=== PATIENT | male | born 1960 | race Caucasian/White ===

== ENCOUNTER 2017-03-05 21:36 | Inpatient (IN) | payer OTHER ==
[~2017-03-05] VITALS: Ht 175.3 cm; Wt 78.5 kg
[2017-03-05] MEDS ORDERED: CEFEPIME IV 2,000 MG in DEXTROSE 5% 100ML 100 ML IV STA (21:56)
[2017-03-05] MEDS ORDERED: SODIUM CHLORIDE 0.9% 1000ML 2,000 ML IV STA (21:56)
[2017-03-05] MEDS ORDERED: ACETAMINOPHEN 500 MG TAB PO STA (21:56)
[2017-03-05] MEDS ORDERED: LEVAQUIN 750MG / 150ML D5W IV STA (21:59)
[2017-03-05] MEDS ORDERED: CEFEPIME IV 2,000 MG in SYRINGE 7.5 ML IV STA (22:14)
[2017-03-05 22:35] LABS: BASO % 0.1 %; BASO ABS # 0.01 K/uL (0-0.2); COMPLETE YES; HEMATOCRIT 30.8 % (42-52); IG% 0.8 %; LYMPH % 6.4 %; LYMPH ABS # 1.13 K/uL (1.2-3.4); MEAN CELL VOLUME 92.2 fL (80-100); MEAN CORPUSCULAR HEMOGLOBIN 31.4 pg (25-34); MEAN CORPUSCULAR HGB CONC 34.1 g/dl (32-36); MEAN PLATELET VOLUME 12.2 fL (7.4-10.4); MONO % 10.4 %; NEUT % 82.3 %; PLATELET COUNT 188 K/uL (130-400); RED BLOOD COUNT 3.34 M/uL (4.7-6.1); WHITE BLOOD COUNT 17.65 K/uL (4.8-10.8)
--- NOTE | 2017-03-05 22:35 | DIAGNOSTIC IMAGING REPORT ---
CHEST ONE VIEW PORTABLE HISTORY: 57 years-old Male Sepsis acute sepsis COMPARISON: None available TECHNIQUE: Portable AP view of the chest FINDINGS: Cardiomediastinal and hilar silhouettes are within normal limits. Atherosclerosis of the aorta. There is no pneumothorax, pleural effusion or focal airspace consolidation. Linear subsegmental opacities of the lung bases suggest atelectasis. The bones are grossly intact. IMPRESSION: No acute cardiopulmonary process. The above report was generated using voice recognition software. It may contain grammatical, syntax or spelling errors. Electronically signed by: Edwardo Diana M.D. 03/05/2017 10:34 PM Dictated Date/Time: 03/05/2017 10:33 PM
--- NOTE | 2017-03-05 22:42 | DIAGNOSTIC IMAGING REPORT ---
HEAD WITHOUT CONTRAST (CT) CLINICAL HISTORY: 57 years-old Male with AMS, dizzy. Acute altered mental status with dizziness TECHNIQUE: Multiple axial CT images of the head were obtained without contrast. A dose lowering technique was utilized adhering to the principles of ALARA. CT DOSE: 537.48 mGy.cm COMPARISON: None. FINDINGS: No acute intracranial hemorrhage, midline shift, mass, large territorial ischemia or abnormal extra-axial collection. Minimal atrophy. The calvarium is intact. The mastoid air cells, and middle ear cavities are clear. Mild mucoperiosteal thickening of the ethmoid sinuses. IMPRESSION: No acute intracranial abnormality. The above report was generated using voice recognition software. It may contain grammatical, syntax or spelling errors. Electronically signed by: Edwardo Diana M.D. 03/05/2017 10:41 PM Dictated Date/Time: 03/05/2017 10:39 PM
[2017-03-05 22:46] LABS: INR 1.1 (0.9-1.1); PARTIAL THROMBOPLASTIN RATIO 1.4; PROTHROMBIN TIME (PATIENT) 11.5 SECONDS (9.0-12.0)
[2017-03-05 22:55] LABS: ALT/SGPT 30 U/L (12-78); BLOOD UREA NITROGEN 46 mg/dl (7-18); BUN/CREATININE RATIO 24.4 (10-20); CALCIUM 8.5 mg/dl (8.5-10.1); CARBON DIOXIDE 20 mmol/L (21-32); CHLORIDE 100 mmol/L (98-107); CREATININE 1.88 mg/dl (0.60-1.40); GLUCOSE 102 mg/dl (70-99); SODIUM 131 mmol/L (136-145)
[2017-03-05 23:00] LABS: ALB/GLOB RATIO 0.6 (0.9-2); ALKALINE PHOSPHATASE 75 U/L (45-117); AST/SGOT 35 U/L (15-37)
[2017-03-05] MEDS ORDERED: ASPI81TA28 PO (23:03)
[2017-03-05] MEDS ORDERED: LISI-725 PO (23:03)
[2017-03-05] MEDS ORDERED: CLOP1TAB15 PO (23:03)
[2017-03-05] MEDS ORDERED: BUPR-83 PO (23:03)
[2017-03-05] MEDS ORDERED: GEMF600T3 PO (23:03)
[2017-03-05] MEDS ORDERED: TRAZ100T29 PO (23:03)
[2017-03-05] MEDS ORDERED: ATOR-24 PO (23:03)
[2017-03-05] MEDS ORDERED: VNTHFA/IN INH (23:03)
[2017-03-05] MEDS ORDERED: MELO15TA10 PO (23:03)
[2017-03-05] MEDS ORDERED: DIVA500T5 PO (23:03)
[2017-03-05] MEDS ORDERED: CARV6.252 PO (23:03)
[2017-03-05] MEDS ORDERED: SODIUM CHLORIDE 0.9% IV STA (23:06)
[2017-03-05] MEDS ORDERED: VANCOMYCIN IV STA (23:06)
[2017-03-05] MEDS ORDERED: SODIUM CHLORIDE 0.9% 1000ML 1,000 ML IV STA (23:06)
[2017-03-05 23:10] LABS: INFLUENZA A PCR Neg for Influ A (NEG); INFLUENZA B PCR Neg for Influ B (NEG)
[2017-03-05 23:26] LABS: URINE APPEARANCE CLOUDY (CLEAR); URINE BILIRUBIN NEG (NEG); URINE COLOR YELLOW; URINE EPITHELIAL CELL AUTO >30 /lpf (0-5); URINE NITRITE NEG (NEG); URINE SPECIFIC GRAVITY 1.018 (1.000-1.030); UROBILINOGEN NEG (NEG); ZZUR CULT IF INDIC CLEAN CATCH YES
[2017-03-05 23:27] LABS: MANUAL MICROSCOPIC REQUIRED? NO; REVIEW REQ? YES
[2017-03-05] MEDS ORDERED: ONDANSETRON INJ 2 MG/ML 2 ML VIAL IV PRN (23:45)
[2017-03-05] MEDS ORDERED: VANCOMYCIN INJ 2,000 MG in SODIUM CHLORIDE 0.9% 500ML 500 ML IV STA (23:47)
--- NOTE | 2017-03-05 23:47 | History and Physical ---
History & Physical Date & Time of Service: Mar 05, 2017 at 23:47 Chief Complaint: Ams, Confusion Primary Care Physician: Andrea MAYS History of Present Illness Source: patient Mr Call is a 57 year old male who presents from [facility] with fever, headache and altered mental state. He reports starting to feel unwell over the past 2 weeks with coughing spells. He felt like this was improving but over the past two days has been having chills. Patient saw medical today as he supposedly was seeing cats but does not recall these events. They then sent him here for further evaluation treatment. [facility] he was not acting himself and therefore he was sent to the ER for evaluation. His headache pain is severity 8/10, better since treatment in the ER, all over his head, feels it is similar to his previous migraine. He also reports urinating frequently and dysuria lasting 4 days but that improved 2 days ago. For the past 2 days he has been having diarrhea with increased black stool. He denies any abdominal pain, nausea or vomiting ( although nausea and vomiting was mentioned on the phone note from the jail). No known diarrheal outbreak at the jail currently. He denies any neck stiffness. Past Medical/Surgical History MS - x4 stent placement (last one in 2007) COPD Family History Noncontributory Social History Smoking Status: Current Every Day Smoker (0.5 pack/day) Smokeless Tobacco Use: No Alcohol Use: none Drug Use: none (denies any previous drug use) Housing status: other ([facility]) Occupational Status: other (in jail) Immunizations History of Influenza Vaccine: Unknown History of Tetanus Vaccine?: Unknown History of Pneumococcal: Unknown History of Hepatitis B Vaccine: Unknown Multi-Drug Resistant Organisms History of MDRO: No Allergies Coded Allergies: No Known Allergies (Unverified , 03/05/17) Home Medications Scheduled Aspirin (Aspirin Ec), 81 MG PO DAILY Atorvastatin (Lipitor), 40 MG PO HS Bupropion (Wellbutrin), 100 MG PO BID Carvedilol (Coreg), 6.25 MG PO BID Clopidogrel (Plavix), 75 MG PO BID Divalproex Sodium (Depakote Delay Rel), 500 MG PO BID Gemfibrozil (Lopid), 600 MG PO BID Lisinopril (Zestril), 20 MG PO DAILY Meloxicam (Mobic), 15 MG PO DAILY Trazodone Hcl (Trazodone), 100 MG PO HS Scheduled PRN Albuterol Hfa (Ventolin Hfa), 2 PUFFS INH Q6H PRN for SOB/Wheezing Review of Systems Constitutional: + fever, + chills Eyes: No worsening of vision ENT: No hearing loss Respiratory: + cough, No sputum, No wheezing, No shortness of breath, No hemoptysis Cardiovascular: No chest pain, No orthopnea, No PND, No edema, No claudication , No palpitations Abdomen: + diarrhea, No pain, No nausea, No vomiting, No constipation, No GI bleeding (darker than usual however) Musculoskeletal: No joint pain, No muscle pain Genitourinary - Male: + dysuria (see HPI, none currently), + urinary frequency (see HPI, none currently), No hematuria Neurologic: + problem reported (dizziness, headache (all over, severity 8/10, progressively getting worse over the past 2 weeks, similar to his previous "migraines")), No numbness/tingling Psychiatric: No depression symptoms, No anxiety Endocrine: + excessive thirst, + excessive urination Hematologic / Lymphatic: No abnormal bleeding/bruising Integumentary: No rash, No itch Physical Exam Vital Signs Date Time Temp Pulse Resp B/P (MAP) Pulse Ox O2 Delivery O2 Flow Rate FiO2 03/05/17 23:27 37.3 03/05/17 23:06 83 19 93 03/05/17 22:57 88/51 03/05/17 22:51 86 21 92 03/05/17 22:45 79/49 03/05/17 22:42 84/48 03/05/17 22:21 91 24 92 03/05/17 22:15 94/54 03/05/17 22:06 94 23 93 Room Air 03/05/17 22:00 86/49 03/05/17 21:54 101 03/05/17 21:52 89/52 03/05/17 21:45 38.1 104 30 96/57 92 Room Air General Appearance: WD/WN, no apparent distress Head: normocephalic, atraumatic Eyes: normal inspection, PERRL, EOMI ENT: normal ENT inspection, + pertinent finding (dry mucus membranes) Respiratory/Chest: chest non-tender, normal breath sounds (quiet but no wheezing or crackles noted), no respiratory distress, no accessory muscle use Cardiovascular: regular rate, rhythm (quiet), no edema, no JVD, no murmur, normal peripheral pulses Abdomen/GI: normal bowel sounds, non tender, soft, normal rectal exam (mild pain over prostate but similar pain over posterior rectum), + fecal occult blood (performed in ER, positive) Back: normal inspection, no CVA tenderness, no muscle spasm, normal range of motion Extremities/Musculoskelatal: no calf tenderness, no pedal edema, + slow capillary refill (4 seconds in peripheries, <2 centrally) Neurologic/Psych: package dyer II-XII nml as tested, no motor/sensory deficits, alert, oriented x 3 Skin: normal color, warm/dry, no rash Lymphatic: no adenopathy Diagnostics Laboratory Results Results Past 24 Hours Test 03/05/17 21:50 03/05/17 21:53 03/05/17 22:04 03/05/17 23:05 Range/Units White Blood Count 17.65 4.8-10.8 K/uL Red Blood Count 3.34 4.7-6.1 M/uL Hemoglobin 10.5 14.0-18.0 g/dL Hematocrit 30.8 42-52 % Mean Corpuscular Volume 92.2 80-100 fL Mean Corpuscular Hemoglobin 31.4 25-34 pg Mean Corpuscular Hemoglobin Concent 34.1 32-36 g/dl Platelet Count 188 130-400 K/uL Mean Platelet Volume 12.2 7.4-10.4 fL Neutrophils (%) (Auto) 82.3 % Lymphocytes (%) (Auto) 6.4 % Monocytes (%) (Auto) 10.4 % Eosinophils (%) (Auto) 0.0 % Basophils (%) (Auto) 0.1 % Neutrophils # (Auto) 14.53 1.4-6.5 K/uL Lymphocytes # (Auto) 1.13 1.2-3.4 K/uL Monocytes # (Auto) 1.83 0.11-0.59 K/uL Eosinophils # (Auto) 0.00 0-0.5 K/uL Basophils # (Auto) 0.01 0-0.2 K/uL RDW Standard Deviation 49.5 36.4-46.3 fL RDW Coefficient of Variation 14.6 11.5-14.5 % Immature Granulocyte % (Auto) 0.8 % Immature Granulocyte # (Auto) 0.15 0.00-0.02 K/uL Prothrombin Time 11.5 9.0-12.0 SECONDS Prothromb Time International Ratio 1.1 0.9-1.1 Activated Partial Thromboplast Time 35.4 21.0-31.0 SECONDS Partial Thromboplastin Ratio 1.4 Sodium Level 131 136-145 mmol/L Potassium Level 4.0 3.5-5.1 mmol/L Chloride Level 100 98-107 mmol/L Carbon Dioxide Level 20 21-32 mmol/L Anion Gap 11.0 3-11 mmol/L Blood Urea Nitrogen 46 7-18 mg/dl Creatinine 1.88 0.60-1.40 mg/dl Est Creatinine Clear Calc Drug Dose 42.9 ml/min Estimated GFR () 44.6 Estimated GFR (Non- 38.5 BUN/Creatinine Ratio 24.4 10-20 Random Glucose 102 70-99 mg/dl Calcium Level 8.5 8.5-10.1 mg/dl Total Bilirubin 0.3 0.2-1 mg/dl Aspartate Amino Transf (AST/SGOT) 35 15-37 U/L Alanine Aminotransferase (ALT/SGPT) 30 12-78 U/L Alkaline Phosphatase 75 45-117 U/L Troponin I < 0.015 0-0.045 ng/ml Total Protein 6.8 6.4-8.2 gm/dl Albumin 2.5 3.4-5.0 gm/dl Globulin 4.3 2.5-4.0 gm/dl Albumin/Globulin Ratio 0.6 0.9-2 Influenza Type A (RT-PCR) Neg for Influ A NEG Influenza Type A Antigen Neg for Influ A NEG Influenza Type B Antigen Neg for Influ B NEG Influenza Type B (RT-PCR) Neg for Influ B NEG Bedside Lactic Acid Venous 0.59 0.90-1.70 mmol/L Urine Color YELLOW Urine Appearance CLOUDY CLEAR Urine pH 5.0 4.5-7.5 Urine Specific [place] 1.018 1.000-1.030 Urine Protein 1+ NEG Urine Glucose (UA) NEG NEG Urine Ketones NEG NEG Urine Occult Blood 1+ NEG Urine Nitrite NEG NEG Urine Bilirubin NEG NEG Urine Urobilinogen NEG NEG Urine Leukocyte Esterase TRACE NEG Microbiology Results 03/05/17 Blood Culture, Received Pending 03/05/17 Blood Culture, Received Pending 03/05/17 Urine Culture, Received Pending Diagnostic Radiology HEAD WITHOUT CONTRAST (CT) CLINICAL HISTORY: 57 years-old Male with AMS, dizzy. Acute altered mental status with dizziness TECHNIQUE: Multiple axial CT images of the head were obtained without contrast. A dose lowering technique was utilized adhering to the principles of ALARA. CT DOSE: 537.48 mGy.cm COMPARISON: None. FINDINGS: No acute intracranial hemorrhage, midline shift, mass, large territorial ischemia or abnormal extra-axial collection. Minimal atrophy. The calvarium is intact. The mastoid air cells, and middle ear cavities are clear. Mild mucoperiosteal thickening of the ethmoid sinuses. IMPRESSION: No acute intracranial abnormality. The above report was generated using voice recognition software. It may contain grammatical, syntax or spelling errors. Electronically signed by: Edwardo Diana M.D. 03/05/2017 10:41 PM Dictated Date/Time: 03/05/2017 10:39 PM CHEST ONE VIEW PORTABLE HISTORY: 57 years-old Male Sepsis acute sepsis COMPARISON: None available TECHNIQUE: Portable AP view of the chest FINDINGS: Cardiomediastinal and hilar silhouettes are within normal limits. Atherosclerosis of the aorta. There is no pneumothorax, pleural effusion or focal airspace consolidation. Linear subsegmental opacities of the lung bases suggest atelectasis. The bones are grossly intact. IMPRESSION: No acute cardiopulmonary process. The above report was generated using voice recognition software. It may contain grammatical, syntax or spelling errors. Electronically signed by: Edwardo Diana M.D. 03/05/2017 10:34 PM EKG Sinus tachycardia Rate 102 bpm No ischemia noted Normal EKG, No prior EKG available Impression Assessment and Plan 57 year old male with COPD presents with fever, altered mental state and cough. Hypotensive and tachycardic in the ER with temperature and raised WBC suggestive of sepsis. Suspected changes on CXR suggest this is the source given history of cough but given inconclusive especially since he is septic will get a CT without contrast to confirm. Sepsis - tachycardiac, elevated WBC, source suspect chest. lactic acid normal - CT chest to confirm infection in chest, vancomycin, Levaquin and cefepime given in ER, hold further antibiotics pending CT results - prostate/urine less likely given negative examination, UA most likely contamination, culture pending. No CVA tenderness. - non toxic appearing, no neck stiffness, headache mostly resolved with fluid resuscitation and no longer appears to have altered mental state therefore low likelihood of meningitis/encephalitis - diarrheal illness - c. diff, norovirus, legionella, culture ordered Hypotension - total 4L NSS recevied in ER - monitor, aim MAP > 65 - hold antihypertensives Fecal occult blood positive stool - need for outpatient follow up, trend H&H overnight Coronary artery disease - continue outpatient medications aspirin, clopidogrel and atorvastatin. - Hold carvedilol and lisinopril given hypotension COPD - duonebs PRN Attending addendum: I have physically seen this patient, have supervised the medical residents activities, and agree with the H&P unless as otherwise noted. Assessment and Plan: Sepsis-- Patient be admitted to the telemetry unit for blood pressure and heart rate monitoring. Empirically on vancomycin, Levaquin and cefepime IV begun in the ER. Continuous -wave based on results of pending studies including CT of chest and urinalysis urine culture. Diarrheal illness--stool for C. difficile, neurovirus and culture and sensitivity are pending. Urinary incontinence--recent episodes noted at the jail, may still prostatitis in spite of normal appearing urinalysis and urine culture. We'll send urine Legionella antigen due to combination of respiratory and urine processes Briefly hypotensive in the ED, but improved after 4 L of normal saline, will continue gentle rehydration. CAD/hypertension--carvedilol and lisinopril on hold due to low blood pressure. Continue aspirin and clopidogrel Hyperlipidemia-- Continue atorvastatin. COPD history-- Duonebs every 6 hours when necessary Level of Care Telemetry (due to hypotension (likely dehydration and antihypertensive related)) Advanced Directives Existing Advance Directive: No Existing Living Will: No Existing Power of Health Plan Specialist: No Resuscitation Status FULL RESUSCITATION VTE Prophylaxis VTE Risk Assessment Done? Y/N: Yes Risk Level: Moderate Given or contraindicated: Unfractionated heparin SQ, T.E.D. Stockings, SCD's Additional Copies To [facility] Resident Tracking Resident Involvement: Resident Care Provided Care Provided: Adult Hospital Medicine
[2017-03-06] MEDS ORDERED: SODIUM CHLORIDE 0.9% 1000ML 1,000 ML IV STA (00:22)
[2017-03-06] MEDS ORDERED: SODIUM CHLORIDE 0.9% 1000ML 1,000 ML IV SCH (00:30)
[2017-03-06] MEDS ORDERED: NURSING VERBAL MED ORDER ONE (00:30)
[2017-03-06 00:59] VITALS: BP 93/58; PULSE 77; TEMP 36.5; O2SAT 95; Ht 175.3 cm; Wt 78.5 kg
[2017-03-06 04:00] VITALS: BP 102/57; PULSE 73; TEMP 37; O2SAT 95
--- NOTE | 2017-03-06 05:31 | EMERGENCY ROOM VISIT NOTE ---
History First contact with patient: 21:41 Chief Complaint: FEVER Stated Complaint: PNEMONIA, SEPSIS History of Present Illness The patient is a 57 year old male who presents to the Emergency Room with complaints of fever, chills, cough and congestion for the past day. Patient states the past 2 weeks is revealing lightheaded and dizzy with coughing. Patient saw medical today as he supposedly was seeing cats but does not recall these events. They then sent him here for further evaluation treatment. Patient denies chest pain, abdominal pain, sore throat, neck stiffness, headache , vomiting, diarrhea. Patient states he did not eat all day as he was feeling ill. Review of Systems See HPI for pertinent positives & negatives. A total of 10 systems reviewed and were otherwise negative. Past Medical/Surgical History Medical Problems: (1) Pneumonia (2) Sepsis Social History Smoking Status: Current Every Day Smoker Drug Use: none Occupation Status: other (incarcerated) Current/Historical Medications Scheduled Aspirin (Aspirin Ec), 81 MG PO DAILY Atorvastatin (Lipitor), 40 MG PO HS Bupropion (Wellbutrin), 100 MG PO BID Carvedilol (Coreg), 6.25 MG PO BID Clopidogrel (Plavix), 75 MG PO BID Divalproex Sodium (Depakote Delay Rel), 500 MG PO BID Gemfibrozil (Lopid), 600 MG PO BID Lisinopril (Zestril), 20 MG PO DAILY Meloxicam (Mobic), 15 MG PO DAILY Trazodone Hcl (Trazodone), 100 MG PO HS Scheduled PRN Albuterol Hfa (Ventolin Hfa), 2 PUFFS INH Q6H PRN for SOB/Wheezing Physical Exam Vital Signs Date Time Temp Pulse Resp B/P (MAP) Pulse Ox O2 Delivery O2 Flow Rate FiO2 03/05/17 23:45 86/50 03/05/17 23:41 83 14 93 03/05/17 23:31 88/53 03/05/17 23:27 37.3 03/05/17 23:26 78 14 97 03/05/17 23:15 91/52 03/05/17 23:11 82 25 91 03/05/17 23:06 83 19 93 03/05/17 22:57 88/51 03/05/17 22:51 86 21 92 03/05/17 22:45 79/49 03/05/17 22:42 84/48 03/05/17 22:21 91 24 92 03/05/17 22:15 94/54 03/05/17 22:06 94 23 93 Room Air 03/05/17 22:00 86/49 03/05/17 21:54 101 03/05/17 21:52 89/52 03/05/17 21:45 38.1 104 30 96/57 92 Room Air Physical Exam VITALS: Vitals are noted on the nurse's note and reviewed by myself. Vital signs febrile hypertensive and tachycardic GENERAL: White male prisoner in [facility], in no acute distress, nondiaphoretic, well-developed well-nourished. SKIN: The skin was without rashes, erythema, edema, or bruising. There is no tenting of the skin. Capillary reflex less than 2 seconds. HEAD: Normocephalic atraumatic. EARS: External auditory canals clear, tympanic membranes pearly salcido without erythema or effusion bilaterally. EYES: Pupils equal round and reactive to light and accommodation. Conjunctivae without injection, sclerae without icterus. Extraocular movements intact. NOSE: Patent, turbinates without inflammation or discharge. No sinus tenderness. MOUTH: Mucous membranes dry. Pharynx without erythema or exudate. Uvula midline. Airway patent. Tongue does not deviate. NECK: Supple without nuchal rigidity. No lymphadenopathy. No thyromegaly. Cervical spine is nontender. No JVD. HEART: Tachycardic rate and rhythm LUNGS: Clear to auscultation bilaterally without wheezes, rales or rhonchi. No dullness to percussion. No retractions or accessory muscle use. ABDOMEN: Positive bowel sounds x 4. Normal tympanic percussion. Soft, nontender, without masses or organomegaly. Keenan sign negative. No guarding or rebound tenderness. MUSCULOSKELETAL: No muscle atrophy, erythema, or edema noted. NEURO: Patient was alert and oriented to person place and time. Normal sensation to light and sharp touch. No focal neurological deficits. Medical Decision & Procedures Laboratory Results Test 03/05/17 21:50 03/05/17 21:53 03/05/17 22:04 03/05/17 23:05 RDW Standard Deviation 49.5 fL (36.4-46.3) RDW Coefficient of Variation 14.6 % (11.5-14.5) White Blood Count 17.65 K/uL (4.8-10.8) Red Blood Count 3.34 M/uL (4.7-6.1) Hemoglobin 10.5 g/dL (14.0-18.0) Hematocrit 30.8 % (42-52) Mean Corpuscular Volume 92.2 fL (80-100) Mean Corpuscular Hemoglobin 31.4 pg (25-34) Mean Corpuscular Hemoglobin Concent 34.1 g/dl (32-36) Platelet Count 188 K/uL (130-400) Mean Platelet Volume 12.2 fL (7.4-10.4) Neutrophils (%) (Auto) 82.3 % Lymphocytes (%) (Auto) 6.4 % Monocytes (%) (Auto) 10.4 % Eosinophils (%) (Auto) 0.0 % Basophils (%) (Auto) 0.1 % Neutrophils # (Auto) 14.53 K/uL (1.4-6.5) Lymphocytes # (Auto) 1.13 K/uL (1.2-3.4) Monocytes # (Auto) 1.83 K/uL (0.11-0.59) Eosinophils # (Auto) 0.00 K/uL (0-0.5) Basophils # (Auto) 0.01 K/uL (0-0.2) Immature Granulocyte % (Auto) 0.8 % Immature Granulocyte # (Auto) 0.15 K/uL (0.00-0.02) Prothrombin Time 11.5 SECONDS (9.0-12.0) Prothromb Time International Ratio 1.1 (0.9-1.1) Activated Partial Thromboplast Time 35.4 SECONDS (21.0-31.0) Partial Thromboplastin Ratio 1.4 Est Creatinine Clear Calc Drug Dose 42.9 ml/min Troponin I < 0.015 ng/ml (0-0.045) Influenza Type A (RT-PCR) Neg for Influ A (NEG) Influenza Type A Antigen Neg for Influ A (NEG) Influenza Type B Antigen Neg for Influ B (NEG) Influenza Type B (RT-PCR) Neg for Influ B (NEG) Bedside Lactic Acid Venous 0.59 mmol/L (0.90-1.70) Urine Color YELLOW Urine Appearance CLOUDY (CLEAR) Urine pH 5.0 (4.5-7.5) Urine Specific [place] 1.018 (1.000-1.030) Urine Protein 1+ (NEG) Urine Glucose (UA) NEG (NEG) Urine Ketones NEG (NEG) Urine Occult Blood 1+ (NEG) Urine Nitrite NEG (NEG) Urine Bilirubin NEG (NEG) Urine Urobilinogen NEG (NEG) Urine Leukocyte Esterase TRACE (NEG) Urine WBC (Auto) 5-10 /hpf (0-5) Urine RBC (Auto) 5-10 /hpf (0-4) Urine Hyaline Casts (Auto) 1-5 /lpf (0-5) Urine Epithelial Cells (Auto) >30 /lpf (0-5) Urine Bacteria (Auto) 1+ (NEG) Urine Pathogenic Casts 10-20 GRANULAR CASTS /lpf (0) Urine Yeast (Auto) (NONE PRSENT) Medications Administered Medications (Trade) Dose Ordered Sig/Radha Route Start Time Stop Time Status Last Admin Dose Admin Sodium Chloride 2,000 ml @ 999 mls/hr Q2H1M STAT IV 03/05/17 21:56 03/05/17 23:56 DC 03/05/17 22:19 999 MLS/HR Acetaminophen (Tylenol Tab) 1,000 mg NOW STAT PO 03/05/17 21:56 03/05/17 22:01 DC 03/05/17 22:18 1,000 MG Levofloxacin (Levaquin / D5W) 750 mg NOW STAT IV 03/05/17 21:59 03/05/17 22:01 DC 03/05/17 22:19 750 MG Cefepime HCl 2000 mg/Syringe 20 ml @ 5 mls/min NOW STAT IV 03/05/17 22:14 03/05/17 22:17 DC 03/05/17 23:16 5 MLS/MIN Sodium Chloride 1,000 ml @ 999 mls/hr Q1H1M STAT IV 03/05/17 23:06 03/06/17 00:06 DC 03/05/17 23:16 999 MLS/HR ED Course Prior records/ancillary studies reviewed. Triage Nursing notes reviewed. Additional history obtained from correction officers. The patient's history was concerning for fever and altered mental status. Differential diagnosis: Etiologies such as sepsis, UTI, pneumonia, metabolic, electrolyte abnormalities , cardiac sources, intracerebral event, toxicologic, neurologic, as well as others were entertained. Physical examination: As above. Pertinent findings were fever and coughing. Vital signs reviewed and revealed hypertensive and febrile. ER treatment provided: IV fluid resuscitation with Normal saline solution, 4000 mL bolus. Blood and urine cultures Antibiotics: Cefepime, Levaquin, vancomycin On reassessment the patient vital signs improved. Diagnostics interpretation by me: ECG: Normal sinus, normal intervals, no acute ST-T wave changes, rate of 102. Impression sinus tachycardia interpreted by myself The labs revealed leukocytosis on CBC. Chemistry panel revealed elevated creatinine. LFTs revealed. Cardiac enzymes were negative. Serum Lactate measurement was low Blood and urine cultures are pending. Imaging studies: HEAD WITHOUT CONTRAST (CT) CLINICAL HISTORY: 57 years-old Male with AMS, dizzy. Acute altered mental status with dizziness TECHNIQUE: Multiple axial CT images of the head were obtained without contrast. A dose lowering technique was utilized adhering to the principles of ALARA. CT DOSE: 537.48 mGy.cm COMPARISON: None. FINDINGS: No acute intracranial hemorrhage, midline shift, mass, large territorial ischemia or abnormal extra-axial collection. Minimal atrophy. The calvarium is intact. The mastoid air cells, and middle ear cavities are clear. Mild mucoperiosteal thickening of the ethmoid sinuses. IMPRESSION: No acute intracranial abnormality. The above report was generated using voice recognition software. It may contain grammatical, syntax or spelling errors. CHEST ONE VIEW PORTABLE HISTORY: 57 years-old Male Sepsis acute sepsis COMPARISON: None available TECHNIQUE: Portable AP view of the chest FINDINGS: Cardiomediastinal and hilar silhouettes are within normal limits. Atherosclerosis of the aorta. There is no pneumothorax, pleural effusion or focal airspace consolidation. Linear subsegmental opacities of the lung bases suggest atelectasis. The bones are grossly intact. IMPRESSION: No acute cardiopulmonary process. Electronically signed by: Edwardo Diana M.D. Consultation: A consultation was placed with Dr. Mercado and Dr. Ambriz hospitalist. The case was discussed and diagnostics were reviewed. The patient was evaluated in the ER for further treatment. Exam and history seem concerning for sepsis most likely is pulmonary in etiology. Patient was hypotensive and tachycardic and febrile. Blood cultures pending. Negative lactic acid. He was not altered for me despite the longterm nurse stating that he was there. Patient's vital signs did improve after being hydrated as above. Patient did not have acute abdomen on exam. No signs of meningitis. Patient was reassessed multiple times. Case reviewed with my attending. Medical Decision As above Head Trauma GCS Score: 15 Medication Reconcilliation Current Medication List: was personally reviewed by me Blood Pressure Screening Patient's blood pressure: Low blood pressure Impression Primary Impression: Sepsis Additional Impression: Anemia Departure Information Dispostion Still a Patient Condition FAIR Referrals Andrea MAYS (PCP) Forms HOME CARE DOCUMENTATION FORM, IMPORTANT VISIT INFORMATION Patient Instructions My [facility] Problem Qualifiers Primary Impression: Sepsis Sepsis type: sepsis due to unspecified organism Qualified Codes: A41.9 - Sepsis, unspecified organism
[2017-03-06] MEDS: HEPARIN SOD 5000 UNIT/0.5 ML CARP SQ SCH ×3 (05:53→20:50)
[2017-03-06 06:20] LABS: BASO % 0.1 %; BASO ABS # 0.02 K/uL (0-0.2); COMPLETE YES; HEMATOCRIT 36.5 % (42-52); IG% 0.7 %; LYMPH % 4.6 %; LYMPH ABS # 0.89 K/uL (1.2-3.4); MEAN CELL VOLUME 94.8 fL (80-100); MEAN CORPUSCULAR HEMOGLOBIN 31.9 pg (25-34); MEAN CORPUSCULAR HGB CONC 33.7 g/dl (32-36); MEAN PLATELET VOLUME 12.1 fL (7.4-10.4); MONO % 10.6 %; PLATELET COUNT 196 K/uL (130-400); RED BLOOD COUNT 3.85 M/uL (4.7-6.1); WHITE BLOOD COUNT 19.37 K/uL (4.8-10.8)
[2017-03-06 06:50] LABS: BUN/CREATININE RATIO 24.5 (10-20); CALCIUM 8.3 mg/dl (8.5-10.1); CREATININE 1.58 mg/dl (0.60-1.40); MAGNESIUM 2.3 mg/dl (1.8-2.4); POTASSIUM 4.2 mmol/L (3.5-5.1)
[2017-03-06 06:53] LABS: ALB/GLOB RATIO 0.5 (0.9-2)
--- NOTE | 2017-03-06 07:25 | DIAGNOSTIC IMAGING REPORT ---
CT SCAN OF THE CHEST WITHOUT IV CONTRAST CLINICAL HISTORY: Sepsis. COMPARISON STUDY: Chest x-ray dated 03/05/2017. TECHNIQUE: CT scan of the thorax was performed from the thoracic inlet to the upper abdomen. Images are reviewed in the axial, sagittal, and coronal planes. IV contrast was not administered for this examination as per the referring clinician. A dose lowering technique was utilized adhering to the principles of ALARA. CT DOSE: 359.05 mGy.cm FINDINGS: Thyroid: Imaged portions of the thyroid gland are normal in size and heterogeneous in attenuation. Thoracic aorta: There is atherosclerotic calcification of the thoracic aorta, which is normal in caliber and demonstrates bovine variant arch anatomy. Heart: The heart is enlarged and there is trace pericardial effusion. The coronary arteries are densely calcified. Lungs and pleural spaces: Mild emphysematous change is noted. There is no airspace consolidation or pleural effusion. Dependent atelectasis is observed mild diffuse peribronchial thickening is identified. The trachea and central airways are clear. Mediastinum: There are scattered subcentimeter mediastinal lymph nodes. These are not pathologically enlarged by size criteria. Joan: Not well assessed without IV contrast. Axillae: There is no axillary lymphadenopathy. Upper abdomen: There is a tiny hiatal hernia. The partially visualized left kidney appears heterogeneous and there is left-sided perinephric fluid. Skeletal structures: The skeletal structures are osteopenic. No lytic or blastic bony lesions are seen. IMPRESSION: 1. There is no airspace consolidation or pleural effusion. Mild peribronchial thickening suggests reactive airway disease. Clinical correlation will be required. 2. Mild cardiomegaly and mild emphysematous change. 3. The partially imaged left kidney appears edematous and there is left-sided perinephric stranding and trace fluid. Correlation with clinical findings and urinalysis will be required. Consider dedicated imaging of the kidneys if clinically warranted. 4. Additional findings as above. Electronically signed by: Cristiano Hughes M.D. 03/06/2017 7:24 AM Dictated Date/Time: 03/06/2017 7:00 AM
[2017-03-06] MEDS: SODIUM CHLORIDE 0.9% 1000ML 1,000 ML IV SCH ×3 (07:36→20:52)
[2017-03-06 08:19] VITALS: BP 155/65; PULSE 96; TEMP 39.3; O2SAT 91
[2017-03-06] MEDS: ACETAMINOPHEN 325 MG TAB PO PRN (08:26)
[2017-03-06] MEDS: GEMFIBROZIL 600 MG TAB PO SCH ×2 (08:26→20:46)
[2017-03-06] MEDS: DIVALPROEX SODIUM 500 MG DELAY RELEASE TAB PO SCH ×2 (08:27→20:47)
[2017-03-06] MEDS: ASPIRIN 81 MG ECTAB PO SCH (08:27)
[2017-03-06] MEDS: CLOPIDOGREL BISULFATE 75 MG TAB PO SCH (08:27)
[2017-03-06] MEDS ORDERED: CEFEPIME IV 2,000 MG in DEXTROSE 5% 100ML 100 ML IV SCH (08:30)
[2017-03-06] MEDS ORDERED: VANCOMYCIN CONSULT ACTIVE PRN (08:45)
--- NOTE | 2017-03-06 08:56 | Family Medicine Progress Note ---
Progress Note Date of Service Mar 06, 2017. Subjective Pt evaluation today including: conversation w/ patient, physical exam, chart review, lab review, conversation w/ [employer] sales consultant, review of inpatient medication list Pain: none PO Intake: minimal Voiding: no voiding problems Patient had a fever this morning and was given tylenol He is still having diarrhea while in hospital, no blood Did vomit with no blood in vomitus Denies any abdominal or back pain Constitutional: + fever, + chills, No sweats Respiratory: No cough, No sputum, No shortness of breath, No dyspnea on exertion Cardiovascular: No chest pain, No edema, No palpitations Abdomen: + nausea, + vomiting, + diarrhea, No pain, No GI bleeding Musculoskeletal: No joint pain, No muscle pain, No calf pain Male : No dysuria, No urinary frequency, No incontinence, No hematuria Skin: No rash, No itch, No new/changing skin lesions Medications Current Inpatient Medications Medications (Trade) Dose Ordered Sig/Radha Route Start Time Stop Time Status Last Admin Dose Admin Heparin Sodium (Porcine) (Heparin Sq 5000 Unit/0.5ml) 5,000 unit Q8 SQ 03/06/17 06:00 04/05/17 05:59 03/06/17 05:53 5,000 UNIT Acetaminophen (Tylenol Tab) 650 mg Q4H PRN PO 03/05/17 23:45 04/04/17 23:44 03/06/17 08:26 650 MG Ondansetron HCl (Zofran Inj) 4 mg Q6H PRN IV 03/05/17 23:45 04/04/17 23:44 03/06/17 07:32 4 MG Aspirin (Ecotrin Tab) 81 mg DAILY PO 03/06/17 09:00 04/05/17 08:59 03/06/17 08:27 81 MG Atorvastatin Calcium (Lipitor Tab) 40 mg HS PO 03/06/17 21:00 04/05/17 20:59 Bupropion HCl (Wellbutrin Tab) 100 mg BID PO 03/06/17 09:00 04/05/17 08:59 03/06/17 08:27 100 MG Clopidogrel Bisulfate (plAVix TAB) 75 mg DAILY PO 03/06/17 09:00 04/05/17 08:59 03/06/17 08:27 75 MG Divalproex Sodium (Depakote Delay Rel Tab) 500 mg BID PO 03/06/17 09:00 04/05/17 08:59 03/06/17 08:27 500 MG Gemfibrozil (Lopid Tab) 600 mg BID PO 03/06/17 09:00 04/05/17 08:59 03/06/17 08:26 600 MG Trazodone HCl (Desyrel Tab) 100 mg HS PO 03/06/17 21:00 04/05/17 20:59 Sodium Chloride 1,000 ml @ 150 mls/hr Q6H40M IV 03/06/17 07:00 04/05/17 06:59 03/06/17 07:36 150 MLS/HR Vancomycin HCl 1000 mg/Sodium Chloride 270 ml @ 125 mls/hr Q12 IV 03/06/17 08:30 03/16/17 08:29 UNV Vancomycin HCl (Consult) 1 ea UD PRN N/A 03/06/17 08:45 04/05/17 08:44 Cefepime HCl 2000 mg/Syringe 20 ml @ 5 mls/min Q12H IV 03/06/17 10:00 03/15/17 23:59 Objective Vital Signs Date Time Temp Pulse Resp B/P (MAP) Pulse Ox O2 Delivery O2 Flow Rate FiO2 03/06/17 08:19 39.3 96 18 155/65 (95) 91 Room Air 03/06/17 04:00 37.0 73 16 102/57 (72) 95 Room Air 03/06/17 04:00 95 Room Air 03/06/17 00:59 36.5 77 20 93/58 95 Room Air 03/06/17 00:36 73 19 94/56 95 Room Air 03/06/17 00:30 79/48 03/06/17 00:29 90/51 03/06/17 00:22 71 91 03/06/17 00:17 90/51 03/06/17 00:15 84/49 03/06/17 00:11 73 91 03/06/17 00:00 91/53 03/05/17 23:56 76 94 03/05/17 23:45 86/50 03/05/17 23:41 83 14 93 03/05/17 23:31 88/53 03/05/17 23:27 37.3 03/05/17 23:26 78 14 97 03/05/17 23:15 91/52 03/05/17 23:11 82 25 91 03/05/17 23:06 83 19 93 03/05/17 22:57 88/51 03/05/17 22:51 86 21 92 03/05/17 22:45 79/49 03/05/17 22:42 84/48 03/05/17 22:21 91 24 92 03/05/17 22:15 94/54 03/05/17 22:06 94 23 93 Room Air 03/05/17 22:00 86/49 03/05/17 21:54 101 03/05/17 21:52 89/52 03/05/17 21:45 38.1 104 30 96/57 92 Room Air Physical Exam General Appearance: WD/WN, no apparent distress Neck: no adenopathy, no JVD, no carotid bruits, trachea midline Respiratory/Chest: lungs clear, no respiratory distress, no accessory muscle use Cardiovascular: regular rate, rhythm, no edema, no murmur Abdomen: normal bowel sounds, soft, no organomegaly, + tenderness (diffuse tenderness, worst in LLQ and epigastric region, no rebound or guarding), + pertinent finding (CVA tenderness bilaterally) Extremities: non-tender, no pedal edema, no calf tenderness Neurologic/Psychiatric: alert, normal mood/affect, oriented x 3 Skin: normal color, warm/dry, no rash Laboratory Results Results Past 24 Hours Test 03/05/17 21:50 03/05/17 21:53 03/05/17 22:04 03/05/17 23:05 Range/Units White Blood Count 17.65 4.8-10.8 K/uL Red Blood Count 3.34 4.7-6.1 M/uL Hemoglobin 10.5 14.0-18.0 g/dL Hematocrit 30.8 42-52 % Mean Corpuscular Volume 92.2 80-100 fL Mean Corpuscular Hemoglobin 31.4 25-34 pg Mean Corpuscular Hemoglobin Concent 34.1 32-36 g/dl Platelet Count 188 130-400 K/uL Mean Platelet Volume 12.2 7.4-10.4 fL Neutrophils (%) (Auto) 82.3 % Lymphocytes (%) (Auto) 6.4 % Monocytes (%) (Auto) 10.4 % Eosinophils (%) (Auto) 0.0 % Basophils (%) (Auto) 0.1 % Neutrophils # (Auto) 14.53 1.4-6.5 K/uL Lymphocytes # (Auto) 1.13 1.2-3.4 K/uL Monocytes # (Auto) 1.83 0.11-0.59 K/uL Eosinophils # (Auto) 0.00 0-0.5 K/uL Basophils # (Auto) 0.01 0-0.2 K/uL RDW Standard Deviation 49.5 36.4-46.3 fL RDW Coefficient of Variation 14.6 11.5-14.5 % Immature Granulocyte % (Auto) 0.8 % Immature Granulocyte # (Auto) 0.15 0.00-0.02 K/uL Prothrombin Time 11.5 9.0-12.0 SECONDS Prothromb Time International Ratio 1.1 0.9-1.1 Activated Partial Thromboplast Time 35.4 21.0-31.0 SECONDS Partial Thromboplastin Ratio 1.4 Sodium Level 131 136-145 mmol/L Potassium Level 4.0 3.5-5.1 mmol/L Chloride Level 100 98-107 mmol/L Carbon Dioxide Level 20 21-32 mmol/L Anion Gap 11.0 3-11 mmol/L Blood Urea Nitrogen 46 7-18 mg/dl Creatinine 1.88 0.60-1.40 mg/dl Est Creatinine Clear Calc Drug Dose 42.9 ml/min Estimated GFR () 44.6 Estimated GFR (Non- 38.5 BUN/Creatinine Ratio 24.4 10-20 Random Glucose 102 70-99 mg/dl Calcium Level 8.5 8.5-10.1 mg/dl Total Bilirubin 0.3 0.2-1 mg/dl Aspartate Amino Transf (AST/SGOT) 35 15-37 U/L Alanine Aminotransferase (ALT/SGPT) 30 12-78 U/L Alkaline Phosphatase 75 45-117 U/L Troponin I < 0.015 0-0.045 ng/ml Total Protein 6.8 6.4-8.2 gm/dl Albumin 2.5 3.4-5.0 gm/dl Globulin 4.3 2.5-4.0 gm/dl Albumin/Globulin Ratio 0.6 0.9-2 Influenza Type A (RT-PCR) Neg for Influ A NEG Influenza Type A Antigen Neg for Influ A NEG Influenza Type B Antigen Neg for Influ B NEG Influenza Type B (RT-PCR) Neg for Influ B NEG Bedside Lactic Acid Venous 0.59 0.90-1.70 mmol/L Urine Color YELLOW Urine Appearance CLOUDY CLEAR Urine pH 5.0 4.5-7.5 Urine Specific [place] 1.018 1.000-1.030 Urine Protein 1+ NEG Urine Glucose (UA) NEG NEG Urine Ketones NEG NEG Urine Occult Blood 1+ NEG Urine Nitrite NEG NEG Urine Bilirubin NEG NEG Urine Urobilinogen NEG NEG Urine Leukocyte Esterase TRACE NEG Urine WBC (Auto) 5-10 0-5 /hpf Urine RBC (Auto) 5-10 0-4 /hpf Urine Hyaline Casts (Auto) 1-5 0-5 /lpf Urine Epithelial Cells (Auto) >30 0-5 /lpf Urine Bacteria (Auto) 1+ NEG Urine Pathogenic Casts 10-20 GRANULAR CASTS 0 /lpf Urine Yeast (Auto) NONE PRSENT Test 03/06/17 00:00 03/06/17 01:23 03/06/17 03:50 03/06/17 06:00 Range/Units Hemoglobin 9.9 12.3 14.0-18.0 g/dL Hematocrit 30.0 36.5 42-52 % White Blood Count 19.37 4.8-10.8 K/uL Red Blood Count 3.85 4.7-6.1 M/uL Mean Corpuscular Volume 94.8 80-100 fL Mean Corpuscular Hemoglobin 31.9 25-34 pg Mean Corpuscular Hemoglobin Concent 33.7 32-36 g/dl Platelet Count 196 130-400 K/uL Mean Platelet Volume 12.1 7.4-10.4 fL Neutrophils (%) (Auto) 84.0 % Lymphocytes (%) (Auto) 4.6 % Monocytes (%) (Auto) 10.6 % Eosinophils (%) (Auto) 0.0 % Basophils (%) (Auto) 0.1 % Neutrophils # (Auto) 16.27 1.4-6.5 K/uL Lymphocytes # (Auto) 0.89 1.2-3.4 K/uL Monocytes # (Auto) 2.06 0.11-0.59 K/uL Eosinophils # (Auto) 0.00 0-0.5 K/uL Basophils # (Auto) 0.02 0-0.2 K/uL RDW Standard Deviation 51.4 36.4-46.3 fL RDW Coefficient of Variation 14.8 11.5-14.5 % Immature Granulocyte % (Auto) 0.7 % Immature Granulocyte # (Auto) 0.13 0.00-0.02 K/uL Sodium Level 137 136-145 mmol/L Potassium Level 4.2 3.5-5.1 mmol/L Chloride Level 106 98-107 mmol/L Carbon Dioxide Level 19 21-32 mmol/L Anion Gap 12.0 3-11 mmol/L Blood Urea Nitrogen 39 7-18 mg/dl Creatinine 1.58 0.60-1.40 mg/dl Est Creatinine Clear Calc Drug Dose 51.0 ml/min Estimated GFR () 55.1 Estimated GFR (Non- 47.5 BUN/Creatinine Ratio 24.5 10-20 Random Glucose 83 70-99 mg/dl Calcium Level 8.3 8.5-10.1 mg/dl Magnesium Level 2.3 1.8-2.4 mg/dl Total Bilirubin 0.3 0.2-1 mg/dl Aspartate Amino Transf (AST/SGOT) 74 15-37 U/L Alanine Aminotransferase (ALT/SGPT) 54 12-78 U/L Alkaline Phosphatase 85 45-117 U/L C-Reactive Protein 29.30 0-0.29 mg/dl Total Protein 7.1 6.4-8.2 gm/dl Albumin 2.4 3.4-5.0 gm/dl Globulin 4.7 2.5-4.0 gm/dl Albumin/Globulin Ratio 0.5 0.9-2 Test 03/06/17 06:45 Range/Units Erythrocyte Sedimentation Rate 76 0-14 mm/hr Procalcitonin 4.00 0-0.5 ng/ml Microbiology Results 03/05/17 Blood Culture, Received Pending 03/05/17 Blood Culture, Received Pending 03/06/17 MRSA DNA Surveillance Screen - Final, Complete Specimen Negative for MRSA by DNA Probe 03/06/17 C.difficile Toxin B Gene (PCR) - Final, Complete No C. difficile toxin B gene detected 03/05/17 Urine Culture, Received Pending Assessment and Plan 57 year old male with COPD presents with fever, altered mental state and cough. Hypotensive and tachycardic in the ER with temperature and raised WBC suggestive of sepsis. CT scan of chest showed edematous left kidney w/ peripnephric stranding Sepsis - tachycardiac, elevated WBC, source suspect is kidneys vs GI - current working diagnosis is pyelonephritis - CT chest showed left kidney edema and stranding - UA with +1 bacteria and granular casts - Ordered stat kidney ultrasound - Patient being given IV cefepime and and vanc - patient receiving maintenance IVF - elevated WBC of 20, ESR 76, CRP 30 and procalcitonin of 4 - blood cultures ordered - patient with abdominal pain and haem + stool in ED therefore will consider diverticulitis vs inflammatory gastritis if kidney ultrasound negative (cdiff neg, norovirus and legionalla ordered) BARRERA on CKD stage 3 - creatinine 1.58 and improving with IVF - currently receiving 150mls/hr Hypotension - total 4L NSS recevied in ER - now on maintenance IVF 150ml/hr - hold antihypertensives Fecal occult blood positive stool - need for outpatient follow up, trend H&H - stable hgb 12.3 Coronary artery disease - continue outpatient medications aspirin, clopidogrel and atorvastatin. - Hold carvedilol and lisinopril given hypotension COPD - duonebs PRN DVT prophylaxis - heparin q8 Code - FULL Continued [facility] stay due to: multiple IV medications needed Discharge planning: other (care home) Reviewed: Pt Seen/Exam by Me History diarrhea +. no blood in stool. no abdominal pain Constitutional: denies: fever Respiratory: negative: short of breath Cardiovascular: denies chest pain Gastrointestinal/Abdominal: negative: abdominal pain General Appearance: no apparent distress Respiratory: lungs clear, no respiratory distress Cardiovascular: regular rate, rhythm Gastrointestinal: normal bowel sounds, non tender, soft Neurologic/Psychiatric: alert, oriented x 3 Skin Characteristics: warm/dry Assessment/Plan Resident Physician Supervision Note: I independently interviewed and examined the patient and verified the pabon history and physical, reviewed labs and image studies, discussed the case with the resident Dr. Dr. Harden and agree with the findings and care plan.
[2017-03-06] MEDS ORDERED: CARVEDILOL 6.25 MG TAB PO SCH (09:00)
[2017-03-06] MEDS: CEFEPIME IV 2,000 MG in SYRINGE 7.5 ML IV SCH ×2 (09:34→22:45)
--- NOTE | 2017-03-06 10:25 | DIAGNOSTIC IMAGING REPORT ---
RETROPERITONEAL COMPLETE CLINICAL HISTORY: 57 years-old Male presenting with Pyelonephritis rule out. TECHNIQUE: Real-time grayscale and limited color Doppler ultrasound imaging of the kidneys and bladder was performed. COMPARISON: None. FINDINGS: Right kidney: Normal echogenicity. Right kidney measures 14.0 cm. No hydronephrosis. No convincing evidence of calculus or mass. Normal perfusion. Left kidney: Normal echogenicity. Left kidney measures 14.1 cm. No hydronephrosis. No convincing evidence of calculus or mass. Normal perfusion. Bladder: Mild circumferential bladder wall thickening. Bilateral ureteral jets present. Other: None. IMPRESSION: 1. Mild circumference of bladder wall thickening can be seen in the setting of cystitis or chronic outlet obstruction. Correlate with urinalysis. 2. No hydronephrosis or sonographic evidence of pyelonephritis. There is continuing clinical concern, contrast-enhanced CT could be obtained. Electronically signed by: Paul Mojica M.D. 03/06/2017 10:24 AM Dictated Date/Time: 03/06/2017 10:23 AM
--- NOTE | 2017-03-06 10:33 | Pharmacy Progress Note ---
Pharmacy Antibiotic Consult Date of Service: Mar 06, 2017. Pharmacy Dosing Scope Pharmacy is consulted to initiate vancomycin IV dosing therapy, order appropriate labs and adjust drug dose/frequency. Subjective The patient is a 57 year old male admitted on Mar 05, 2017 at 23:46. Objective Height (Feet): 5 Height (Inches): 9.00 Weight (Kilograms): 82.500 Lab Results (24hrs): Test 03/05/17 21:50 03/05/17 21:53 03/05/17 22:04 03/05/17 23:05 White Blood Count 17.65 K/uL (4.8-10.8) Red Blood Count 3.34 M/uL (4.7-6.1) Hemoglobin 10.5 g/dL (14.0-18.0) Hematocrit 30.8 % (42-52) Mean Corpuscular Volume 92.2 fL (80-100) Mean Corpuscular Hemoglobin 31.4 pg (25-34) Mean Corpuscular Hemoglobin Concent 34.1 g/dl (32-36) Platelet Count 188 K/uL (130-400) Mean Platelet Volume 12.2 fL (7.4-10.4) Neutrophils (%) (Auto) 82.3 % Lymphocytes (%) (Auto) 6.4 % Monocytes (%) (Auto) 10.4 % Eosinophils (%) (Auto) 0.0 % Basophils (%) (Auto) 0.1 % Neutrophils # (Auto) 14.53 K/uL (1.4-6.5) Lymphocytes # (Auto) 1.13 K/uL (1.2-3.4) Monocytes # (Auto) 1.83 K/uL (0.11-0.59) Eosinophils # (Auto) 0.00 K/uL (0-0.5) Basophils # (Auto) 0.01 K/uL (0-0.2) RDW Standard Deviation 49.5 fL (36.4-46.3) RDW Coefficient of Variation 14.6 % (11.5-14.5) Immature Granulocyte % (Auto) 0.8 % Immature Granulocyte # (Auto) 0.15 K/uL (0.00-0.02) Prothrombin Time 11.5 SECONDS (9.0-12.0) Prothromb Time International Ratio 1.1 (0.9-1.1) Activated Partial Thromboplast Time 35.4 SECONDS (21.0-31.0) Partial Thromboplastin Ratio 1.4 Sodium Level 131 mmol/L (136-145) Potassium Level 4.0 mmol/L (3.5-5.1) Chloride Level 100 mmol/L (98-107) Carbon Dioxide Level 20 mmol/L (21-32) Anion Gap 11.0 mmol/L (3-11) Blood Urea Nitrogen 46 mg/dl (7-18) Creatinine 1.88 mg/dl (0.60-1.40) Est Creatinine Clear Calc Drug Dose 42.9 ml/min Estimated GFR () 44.6 Estimated GFR (Non- 38.5 BUN/Creatinine Ratio 24.4 (10-20) Random Glucose 102 mg/dl (70-99) Calcium Level 8.5 mg/dl (8.5-10.1) Total Bilirubin 0.3 mg/dl (0.2-1) Aspartate Amino Transf (AST/SGOT) 35 U/L (15-37) Alanine Aminotransferase (ALT/SGPT) 30 U/L (12-78) Alkaline Phosphatase 75 U/L (45-117) Troponin I < 0.015 ng/ml (0-0.045) Total Protein 6.8 gm/dl (6.4-8.2) Albumin 2.5 gm/dl (3.4-5.0) Globulin 4.3 gm/dl (2.5-4.0) Albumin/Globulin Ratio 0.6 (0.9-2) Influenza Type A (RT-PCR) Neg for Influ A (NEG) Influenza Type A Antigen Neg for Influ A (NEG) Influenza Type B Antigen Neg for Influ B (NEG) Influenza Type B (RT-PCR) Neg for Influ B (NEG) Bedside Lactic Acid Venous 0.59 mmol/L (0.90-1.70) Urine Color YELLOW Urine Appearance CLOUDY (CLEAR) Urine pH 5.0 (4.5-7.5) Urine Specific [place] 1.018 (1.000-1.030) Urine Protein 1+ (NEG) Urine Glucose (UA) NEG (NEG) Urine Ketones NEG (NEG) Urine Occult Blood 1+ (NEG) Urine Nitrite NEG (NEG) Urine Bilirubin NEG (NEG) Urine Urobilinogen NEG (NEG) Urine Leukocyte Esterase TRACE (NEG) Urine WBC (Auto) 5-10 /hpf (0-5) Urine RBC (Auto) 5-10 /hpf (0-4) Urine Hyaline Casts (Auto) 1-5 /lpf (0-5) Urine Epithelial Cells (Auto) >30 /lpf (0-5) Urine Bacteria (Auto) 1+ (NEG) Urine Pathogenic Casts 10-20 GRANULAR CASTS /lpf (0) Urine Yeast (Auto) (NONE PRSENT) Test 03/06/17 00:00 03/06/17 01:23 03/06/17 03:50 03/06/17 06:00 Hemoglobin 9.9 g/dL (14.0-18.0) 12.3 g/dL (14.0-18.0) Hematocrit 30.0 % (42-52) 36.5 % (42-52) White Blood Count 19.37 K/uL (4.8-10.8) Red Blood Count 3.85 M/uL (4.7-6.1) Mean Corpuscular Volume 94.8 fL (80-100) Mean Corpuscular Hemoglobin 31.9 pg (25-34) Mean Corpuscular Hemoglobin Concent 33.7 g/dl (32-36) Platelet Count 196 K/uL (130-400) Mean Platelet Volume 12.1 fL (7.4-10.4) Neutrophils (%) (Auto) 84.0 % Lymphocytes (%) (Auto) 4.6 % Monocytes (%) (Auto) 10.6 % Eosinophils (%) (Auto) 0.0 % Basophils (%) (Auto) 0.1 % Neutrophils # (Auto) 16.27 K/uL (1.4-6.5) Lymphocytes # (Auto) 0.89 K/uL (1.2-3.4) Monocytes # (Auto) 2.06 K/uL (0.11-0.59) Eosinophils # (Auto) 0.00 K/uL (0-0.5) Basophils # (Auto) 0.02 K/uL (0-0.2) RDW Standard Deviation 51.4 fL (36.4-46.3) RDW Coefficient of Variation 14.8 % (11.5-14.5) Immature Granulocyte % (Auto) 0.7 % Immature Granulocyte # (Auto) 0.13 K/uL (0.00-0.02) Sodium Level 137 mmol/L (136-145) Potassium Level 4.2 mmol/L (3.5-5.1) Chloride Level 106 mmol/L (98-107) Carbon Dioxide Level 19 mmol/L (21-32) Anion Gap 12.0 mmol/L (3-11) Blood Urea Nitrogen 39 mg/dl (7-18) Creatinine 1.58 mg/dl (0.60-1.40) Est Creatinine Clear Calc Drug Dose 51.0 ml/min Estimated GFR () 55.1 Estimated GFR (Non- 47.5 BUN/Creatinine Ratio 24.5 (10-20) Random Glucose 83 mg/dl (70-99) Calcium Level 8.3 mg/dl (8.5-10.1) Magnesium Level 2.3 mg/dl (1.8-2.4) Total Bilirubin 0.3 mg/dl (0.2-1) Aspartate Amino Transf (AST/SGOT) 74 U/L (15-37) Alanine Aminotransferase (ALT/SGPT) 54 U/L (12-78) Alkaline Phosphatase 85 U/L (45-117) C-Reactive Protein 29.30 mg/dl (0-0.29) Total Protein 7.1 gm/dl (6.4-8.2) Albumin 2.4 gm/dl (3.4-5.0) Globulin 4.7 gm/dl (2.5-4.0) Albumin/Globulin Ratio 0.5 (0.9-2) Test 03/06/17 06:45 Erythrocyte Sedimentation Rate 76 mm/hr (0-14) Procalcitonin 4.00 ng/ml (0-0.5) Micro Results: Date/Time Source Procedure Growth Status 03/05/17 22:05 Blood Blood Culture Pending Received 03/05/17 21:50 Blood Blood Culture Pending Received 03/06/17 00:00 Nasal MRSA DNA Surveillance Screen - Final Specimen Negative for MRSA by DNA Probe Complete 03/06/17 03:50 Stool C.difficile Toxin B Gene (PCR) - Final No C. difficile toxin B gene detected Complete 03/05/17 23:05 Urine , Clean Catch Urine Culture Pending Received Assessment & Plan Assessment: * 57 year old male presenting with fever, headache, and AMS * Reports urinating frequently and dysuria x 4 days but improved 2 days ago, also with diarrhea * PMH: COPD, MIx 4 stent placements (last one 2007) * WBC 19, Neut 16, procalcitonin 4,- elevated SCr improving 1.88 --> 1.58 * Nasal swab MRSA (-), C. diff (-) * Cultures pending Plan: Loading dose: 2000 mg x 1 (24 mg/kg) Dose: Vancomycin 1250 mg q16H (15 mg/kg) PK: SCr 1.58, CrCl 51, T1/2 ~15 hours Will dose close to half life for now, may need to adjust dosing frequency as SCr improves Goal trough level estimate: between 15-20 mcg/mL. Will order trough tomorrow if dose does not need adjusted. Pharmacy will continue to follow and will adjust dose/frequency as necessary. Thank you
[2017-03-06 12:44] VITALS: BP 106/67; PULSE 64; TEMP 36.4; O2SAT 98
[2017-03-06 16:06] VITALS: BP 123/60; PULSE 58; TEMP 37; O2SAT 97
[2017-03-06] MEDS: VANCOMYCIN INJ 1,250 MG in SODIUM CHLORIDE 0.9% 250ML 250 ML IV SCH (19:03)
[2017-03-06 19:48] VITALS: BP 134/69; PULSE 77; TEMP 36.8; O2SAT 98
[2017-03-06] MEDS: TRAZODONE HCL 100 MG TAB PO SCH (20:46)
[2017-03-06] MEDS: ATORVASTATIN 20 MG TAB PO SCH (20:47)
[2017-03-07] VITALS (8 sets, daily range): BP systolic 104–137; BP diastolic 48–75; PULSE 55–77; TEMP 36.6–38.1; O2SAT 94–97
[2017-03-07] MEDS: ACETAMINOPHEN 325 MG TAB PO PRN ×3 (00:03→17:45)
[2017-03-07] MEDS: SODIUM CHLORIDE 0.9% 1000ML 1,000 ML IV SCH (03:25)
[2017-03-07] MEDS: HEPARIN SOD 5000 UNIT/0.5 ML CARP SQ SCH ×3 (05:52→21:12)
[2017-03-07 06:52] LABS: BASO % 0.1 %; BASO ABS # 0.02 K/uL (0-0.2); COMPLETE YES; HEMATOCRIT 32.2 % (42-52); IG% 0.5 %; LYMPH % 4.4 %; LYMPH ABS # 0.76 K/uL (1.2-3.4); MEAN CORPUSCULAR HGB CONC 32.6 g/dl (32-36); MEAN PLATELET VOLUME 11.9 fL (7.4-10.4); MONO % 10.1 %; NEUT % 84.9 %; PLATELET COUNT 246 K/uL (130-400); RED BLOOD COUNT 3.39 M/uL (4.7-6.1); WHITE BLOOD COUNT 17.16 K/uL (4.8-10.8)
[2017-03-07 07:27] LABS: BUN/CREATININE RATIO 23.8 (10-20); CALCIUM 8.1 mg/dl (8.5-10.1); CREATININE 1.15 mg/dl (0.60-1.40); POTASSIUM 3.7 mmol/L (3.5-5.1)
[2017-03-07] MEDS: VANCOMYCIN INJ 1,250 MG in SODIUM CHLORIDE 0.9% 250ML 250 ML IV SCH (08:08)
[2017-03-07] MEDS: DIVALPROEX SODIUM 500 MG DELAY RELEASE TAB PO SCH ×2 (08:09→20:30)
[2017-03-07] MEDS: CLOPIDOGREL BISULFATE 75 MG TAB PO SCH (08:10)
[2017-03-07] MEDS: GEMFIBROZIL 600 MG TAB PO SCH ×2 (08:10→20:30)
[2017-03-07] MEDS: ASPIRIN 81 MG ECTAB PO SCH (08:10)
--- NOTE | 2017-03-07 09:29 | Family Medicine Progress Note ---
Progress Note Date of Service Mar 07, 2017. Subjective Pt evaluation today including: conversation w/ patient, physical exam, chart review, lab review, conversation w/ retail sales consultant, review of inpatient medication list Pain: none PO Intake: good Voiding: no voiding problems Patient without any complaints overnight Feels better since yesterday, denies any fevers or chills Had 1 episode of diarrhea this morning Constitutional: No fever, No chills, No sweats Respiratory: No cough, No sputum, No wheezing, No shortness of breath Cardiovascular: No chest pain, No edema, No palpitations Abdomen: + diarrhea, No pain, No nausea, No vomiting, No constipation, No GI bleeding Musculoskeletal: No joint pain, No muscle pain, No calf pain Male : No dysuria, No urinary frequency Heme: No abnormal bleeding/bruising Skin: No rash, No itch Medications Current Inpatient Medications Medications (Trade) Dose Ordered Sig/Radha Route Start Time Stop Time Status Last Admin Dose Admin Heparin Sodium (Porcine) (Heparin Sq 5000 Unit/0.5ml) 5,000 unit Q8 SQ 03/06/17 06:00 04/05/17 05:59 03/07/17 05:52 5,000 UNIT Acetaminophen (Tylenol Tab) 650 mg Q4H PRN PO 03/05/17 23:45 04/04/17 23:44 03/07/17 05:58 650 MG Ondansetron HCl (Zofran Inj) 4 mg Q6H PRN IV 03/05/17 23:45 04/04/17 23:44 03/06/17 07:32 4 MG Aspirin (Ecotrin Tab) 81 mg DAILY PO 03/06/17 09:00 04/05/17 08:59 03/07/17 08:10 81 MG Atorvastatin Calcium (Lipitor Tab) 40 mg HS PO 03/06/17 21:00 04/05/17 20:59 03/06/17 20:47 40 MG Bupropion HCl (Wellbutrin Tab) 100 mg BID PO 03/06/17 09:00 04/05/17 08:59 03/07/17 08:09 100 MG Clopidogrel Bisulfate (plAVix TAB) 75 mg DAILY PO 03/06/17 09:00 04/05/17 08:59 03/07/17 08:10 75 MG Divalproex Sodium (Depakote Delay Rel Tab) 500 mg BID PO 03/06/17 09:00 04/05/17 08:59 03/07/17 08:09 500 MG Gemfibrozil (Lopid Tab) 600 mg BID PO 03/06/17 09:00 04/05/17 08:59 03/07/17 08:10 600 MG Trazodone HCl (Desyrel Tab) 100 mg HS PO 03/06/17 21:00 04/05/17 20:59 03/06/17 20:46 100 MG Sodium Chloride 1,000 ml @ 150 mls/hr Q6H40M IV 03/06/17 07:00 04/05/17 06:59 03/07/17 03:25 150 MLS/HR Vancomycin HCl 1250 mg/Sodium Chloride 275 ml @ 125 mls/hr Q16H IV 03/06/17 16:00 03/16/17 15:59 03/07/17 08:08 125 MLS/HR Vancomycin HCl (Consult) 1 ea UD PRN N/A 03/06/17 08:45 04/05/17 08:44 Cefepime HCl 2000 mg/Syringe 20 ml @ 5 mls/min Q12H IV 03/06/17 10:00 03/15/17 23:59 03/06/17 22:45 5 MLS/MIN Objective Vital Signs Date Time Temp Pulse Resp B/P (MAP) Pulse Ox O2 Delivery O2 Flow Rate FiO2 03/07/17 07:58 37.4 75 20 104/55 (71) 95 Room Air 03/07/17 04:17 36.7 55 19 109/58 (75) 95 Room Air 03/07/17 04:00 Room Air 03/07/17 00:43 38.1 67 18 107/48 (67) 94 Room Air 03/07/17 00:00 Room Air 03/06/17 20:00 Room Air 03/06/17 19:48 36.8 77 18 134/69 (90) 98 03/06/17 16:06 37.0 58 18 123/60 (81) 97 03/06/17 16:00 Room Air 03/06/17 12:44 36.4 64 18 106/67 (80) 98 Room Air 03/06/17 11:45 Room Air Physical Exam General Appearance: WD/WN, no apparent distress ENT: hearing grossly normal, pharynx normal Neck: supple, no JVD, no carotid bruits, trachea midline Respiratory/Chest: chest non-tender, lungs clear, no respiratory distress, no accessory muscle use Cardiovascular: regular rate, rhythm, no JVD, no murmur Abdomen: normal bowel sounds, soft, + tenderness (mild diffuse tenderness, most prominent in RLQ and LUQ) Extremities: non-tender, no pedal edema, no calf tenderness Neurologic/Psychiatric: alert, normal mood/affect, oriented x 3 Skin: normal color, warm/dry, no rash Laboratory Results Results Past 24 Hours Test 03/07/17 06:38 03/07/17 06:39 Range/Units HIV (1&2) Ab and P24 Ag, 4th Gener NEG NEG White Blood Count 17.16 4.8-10.8 K/uL Red Blood Count 3.39 4.7-6.1 M/uL Hemoglobin 10.5 14.0-18.0 g/dL Hematocrit 32.2 42-52 % Mean Corpuscular Volume 95.0 80-100 fL Mean Corpuscular Hemoglobin 31.0 25-34 pg Mean Corpuscular Hemoglobin Concent 32.6 32-36 g/dl Platelet Count 246 130-400 K/uL Mean Platelet Volume 11.9 7.4-10.4 fL Neutrophils (%) (Auto) 84.9 % Lymphocytes (%) (Auto) 4.4 % Monocytes (%) (Auto) 10.1 % Eosinophils (%) (Auto) 0.0 % Basophils (%) (Auto) 0.1 % Neutrophils # (Auto) 14.56 1.4-6.5 K/uL Lymphocytes # (Auto) 0.76 1.2-3.4 K/uL Monocytes # (Auto) 1.74 0.11-0.59 K/uL Eosinophils # (Auto) 0.00 0-0.5 K/uL Basophils # (Auto) 0.02 0-0.2 K/uL RDW Standard Deviation 52.7 36.4-46.3 fL RDW Coefficient of Variation 15.3 11.5-14.5 % Immature Granulocyte % (Auto) 0.5 % Immature Granulocyte # (Auto) 0.08 0.00-0.02 K/uL Sodium Level 138 136-145 mmol/L Potassium Level 3.7 3.5-5.1 mmol/L Chloride Level 110 98-107 mmol/L Carbon Dioxide Level 18 21-32 mmol/L Anion Gap 10.0 3-11 mmol/L Blood Urea Nitrogen 27 7-18 mg/dl Creatinine 1.15 0.60-1.40 mg/dl Est Creatinine Clear Calc Drug Dose 70.1 ml/min Estimated GFR () 80.9 Estimated GFR (Non- 69.8 BUN/Creatinine Ratio 23.8 10-20 Random Glucose 74 70-99 mg/dl Lactic Acid Level 1.3 0.4-2.0 mmol/L Calcium Level 8.1 8.5-10.1 mg/dl Microbiology Results 03/06/17 Parasitology Test - Preliminary, Resulted Assessment and Plan 57 year old male with COPD presents with fever, altered mental state and cough. Hypotensive and tachycardic in the ER with temperature and raised WBC suggestive of sepsis. Patient has had preliminary blood cultures grow 1/2 gram negative bacilli. Still with unknown source of infection Sepsis - with bacteremia -- tachycardiac, elevated WBC, source suspect is kidneys vs GI - CT chest showed left kidney edema and stranding - renal ultrasound without any evidence of pyelonephritis - UA with +1 bacteria and granular casts - Patient being given IV cefepime, vanc stopped as preliminary blood cultures grown gram negative bacilli - wcc improving from 19-17 overnight - blood cultures have grown 1/2 gram negative bacilli in preliminary cultures - patient still with abdominal tenderness and diarrhea (will consider CT abdomen later this afternoon) BARRERA on CKD stage 3 - creatinine improved to 1.15 today - patient drinking well PO and therefore have stopped IVF - continue to monitor creatinine Hypotension sec to sepsis - total 4L NSS recevied in ER - blood pressure 100's systolic therefore will continue to hold antihypertensives Fecal occult blood positive stool - need for outpatient follow up, trend H&H - hgb dropped to 10 this morning --> like dilutional from IVF - continue to monitor Hgb - add PPI Coronary artery disease - continue outpatient medications aspirin, clopidogrel and atorvastatin. - Hold carvedilol and lisinopril given hypotension COPD - duonebs PRN Continue depakote, wellbutrin, trazodone. DVT prophylaxis - heparin q8 Code - FULL Continued [facility] stay due to: multiple IV medications needed Discharge planning: other (correction) Reviewed: Pt Seen/Exam by Me History no concerns overnight Constitutional: denies: fever Respiratory: negative: short of breath Cardiovascular: denies chest pain Gastrointestinal/Abdominal: negative: abdominal pain General Appearance: no apparent distress Respiratory: lungs clear, no respiratory distress Cardiovascular: regular rate, rhythm Gastrointestinal: normal bowel sounds, non tender, soft Neurologic/Psychiatric: alert, oriented x 3 Skin Characteristics: warm/dry Assessment/Plan Resident Physician Supervision Note: I independently interviewed and examined the patient and verified the pabon history and physical, reviewed labs and image studies, discussed the case with the resident Dr. Dr. Harden and agree with the findings and care plan.
[2017-03-07] MEDS ORDERED: OPTIRAY 320 IV PRN (10:00)
[2017-03-07] MEDS: CEFEPIME IV 2,000 MG in SYRINGE 7.5 ML IV SCH ×2 (10:33→22:19)
--- NOTE | 2017-03-07 13:17 | DIAGNOSTIC IMAGING REPORT ---
ABD/PELVIS IV AND ORAL CONT CLINICAL HISTORY: 57 years-old Male presenting with gram negative bacteremia. TECHNIQUE: Multidetector CT of the abdomen and pelvis was performed after the administration of oral and intravenous contrast. IV contrast: 120 mL of Optiray 320. A dose lowering technique was used consistent with the principles of ALARA (as low as reasonably achievable). COMPARISON: None. CT DOSE (mGy.cm): The estimated cumulative dose is 551.75 mGy.cm. 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 Lung bases: Minimal dependent changes likely atelectasis. Prominent bulla at the right middle lobe. Bronchial wall thickening. Multichamber enlargement of the heart. Coronary artery calcification. Small bilateral pleural effusions. Liver: Normal morphology. Perfusional variation or focal fat along the fissure for the ligamentum teres. No focal lesion. Patent hepatic vasculature. Biliary: No intrahepatic or extrahepatic biliary ductal dilatation. Gallbladder nondistended though with gallbladder wall thickening. Mild pericholecystic fat stranding. Pancreas: Limited peripancreatic fat stranding along the dorsum of the tail. No peripancreatic fluid collection. Spleen: Normal. Adrenal glands: Normal. Kidneys and ureters: Normal. No hydronephrosis. Bladder: Normal. Pelvic organs: Prostate enlargement likely secondary to benign prostatic hyperplasia. Bowel: Mild stool burden throughout normal caliber colon. Normal appendix. No bowel obstruction. Mild wall thickening of the descending portion of the duodenum with periduodenal fat stranding, likely secondary. Peritoneal cavity: Small amount of retroperitoneal fluid tracking primarily along the left anterior pararenal space and extending into the extraperitoneal left hemipelvis and presacral region. No free intraperitoneal fluid or gas. Lymph nodes: No enlarged lymph nodes in the abdomen or pelvis. Vasculature: Atherosclerosis of the normal caliber abdominal aorta. IVC patent. Abdominal wall: Normal. Musculoskeletal: Normal. IMPRESSION: 1. Retroperitoneal fluid primarily on the left appears to track from the pancreatic tail. This suggests interstitial edematous pancreatitis. Correlate with lipase. Duodenal fat stranding likely secondary to this process. 2. Gallbladder wall thickening and pericholecystic fat stranding in the setting of a nondistended gallbladder there is equivocal for diagnosis of cholecystitis. Potentially these findings could be secondary to the presence of pancreatitis, however, if there is clinical need to exclude cholecystitis, nuclear medicine hepatobiliary scan could be obtained. 3. Small bilateral pleural effusions and passive atelectasis. 4. Cardiomegaly. Electronically signed by: Paul Mojica M.D. 03/07/2017 1:16 PM Dictated Date/Time: 03/07/2017 1:07 PM
[2017-03-07 15:16] LABS: ALKALINE PHOSPHATASE 79 U/L (45-117); ALT/SGPT 54 U/L (12-78); AST/SGOT 55 U/L (15-37)
[2017-03-07] MEDS: IPRATROPIUM BROMIDE/ALBUTEROL respimat INH INH SCH ×3 (17:00→20:30)
[2017-03-07] MEDS: ATORVASTATIN 20 MG TAB PO SCH (20:30)
[2017-03-07] MEDS: TRAZODONE HCL 100 MG TAB PO SCH (20:30)
--- NOTE | 2017-03-07 21:12 | GASTROINTESTINAL CONSULTATION ---
DATE OF CONSULTATION: 03/07/2017 CHIEF COMPLAINT: Nausea, heme positive stool and gram negative bacteremia, probable acute cholecystitis. HISTORY OF PRESENT ILLNESS: Mr. Call is a 57-year-old white male, who was admitted 2 days ago from snf with onset of nausea, brief vomiting and vague abdominal pain with chills and rigors by his description. In addition, he had fever at [facility]. The patient, apparently was having cough spells for several days prior to his admission. There was a component of hallucinations. There are also reports of urinary frequency and dysuria over the past several days. Additionally, he was having diarrhea and describes increased dark stools. The patient has no prior gastrointestinal history. He did report having had a colonoscopy with polyp removal, probably around age 49 by his recollection. He denies any hematemesis, coffee-ground emesis, melena or bright red blood per rectum. PAST MEDICAL HISTORY: Significant for SD with coronary artery disease and for stent placement. He also has history of COPD and hypercholesterolemia. FAMILY HISTORY: Noncontributory. SOCIAL HISTORY: The patient smokes tobacco products. He denies alcohol use. He is incarcerated at [facility]. ALLERGIES: He has no known drug allergies. HOME MEDICATIONS: Include aspirin; atorvastatin; Wellbutrin; carvedilol; clopidogrel; Depakote; gemfibrozil; lisinopril; meloxicam for arthritis, general aches and pains and trazodone. REVIEW OF SYSTEMS: Otherwise noncontributory based on 15-point exam except for mentioned above. PHYSICAL EXAMINATION: GENERAL: The patient is resting comfortably in bed and actually eating a solid meal. The patient is awake, alert and oriented x3. VITAL SIGNS: At this time; afebrile 37.5, blood pressure 126/71, pulse ox 96 on room air, respirations 18 and heart rate 67. HEENT: Sclerae anicteric, conjunctivae moist and oral mucosa moist. HEART: Normal S1, S2. LUNGS: Clear to auscultation without rales, rhonchi or wheezes. ABDOMEN: Soft, minimal tenderness in the epigastrium without rebound or guarding; this was not always reproducible. There are positive bowel sounds and no evidence of abdominal bruits. I do not appreciate evidence of ascites or shifting dullness. EXTREMITIES: Without clubbing, cyanosis or edema. RECTAL: Deferred at this time. LABORATORY STUDIES: On admission; show a white count of 17.6 with hemoglobin of 10.5 and platelets of 188,000. Subsequent white blood cell count elida to 19, although it is currently down at 17,000. Hemoglobin had also risen to 12.3 and again is 10.5 today with normal platelets. He has had no transfusions. On microbiology, the patient had a gram-negative bacillus growing in the blood cultures. Urine was unrevealing. The stool studies did not reveal positive routine cultures or C. diff positivity. Serum chemistries on admission show normal LFTs with total bilirubin 0.3, AST 35, ALT 30 and alkaline phosphatase of 75. His AST had risen slightly yesterday to 74. His electrolytes are satisfactory, although his bicarbonate is low at 19 and 20. BUN and creatinine were elevated, but currently at 46 and 1.88 although on today's labs his BUN and creatinine are 27 and 1.15. Potassium is normal. His LFTs today shows slight improvement with AST minimally elevated at 55, alkaline phosphatase 79, ALT 54 and bilirubin is 0.2. Lipase is 340. He is HIV negative. Giardia is pending at this time as well as urine for legionella. Influenza is negative for type A and B. INR is 1.1. Urinalysis showed 10-20 granular casts and 5-10 white cells with 1+ blood. Nursing reports that stools were heme positive today and he had passed dark stools. IMAGING STUDIES: CT today revealed atelectatic changes at the bases with bulla in the right middle lobe. The liver has a normal appearance. There are no focal lesions or masses. There is no evidence for ductal dilation. The gallbladder is nondistended though there is gallbladder wall thickening. Pancreas shows limited peripancreatic fat stranding along the dorsum of the tail. No peripancreatic fluid was appreciated. There is mild stool burden in a normal appearing colon. Otherwise, no evidence for bowel obstruction or transition zone. The appendix is normal. In the descending duodenum, there may be some mild periduodenal fat stranding. There is no significant ascites. There is no pathologic adenopathy. MEDICATIONS IN THE HOSPITAL: Albuterol, ipratropium, trazodone, atorvastatin, cefepime, aspirin, Wellbutrin, Plavix, Depakote and Lopid. IMPRESSION: Mr. Call presented with evidence of fever, leukocytosis, recent urinary frequency, dysuria and gram negative bacilli growing in one blood culture. The organism culture and sensitivity is pending at this time. Based on his liver morphology, I do not expect an hepatobiliary source. However, the gallbladder does have some possible thickening and whether or not this is a culprit is unclear. However, based on his symptoms on presentation, I suspect the organism identified in the blood likely reflects a urinary tract origin. There is, however, heme positive stools, description of dark stools and mild normocytic anemia. The patient does take Mobic and therefore peptic ulcer disease is a possibility. Lower GI sources may also be a culprit, as he describes polyps were removed several years ago. I made the following recommendations; would continue current antibiotic therapy, observe liver function tests serially and hemoglobin. At some point, before discharge, an upper endoscopy and perhaps colonoscopy may be helpful; however, these would not be likely sources of gram negative rods in the blood stream. There is no convincing evidence of biliary obstruction ( acute cholangitis or choledocholithiasis). However, given these findings it may be reasonable to consult surgery if not already performed. We will follow with you. Dr. Robledo is covering for the service this weekend. Thank you for allowing us to participate in your care. TYRONE
[2017-03-08] VITALS (8 sets, daily range): BP systolic 118–151; BP diastolic 59–71; PULSE 65–81; TEMP 36.7–38; O2SAT 93–97
[2017-03-08] MEDS: HEPARIN SOD 5000 UNIT/0.5 ML CARP SQ SCH ×3 (06:00→21:36)
[2017-03-08 06:29] LABS: HEMATOCRIT 30.7 % (42-52); MEAN CELL VOLUME 93.6 fL (80-100); MEAN CORPUSCULAR HEMOGLOBIN 30.8 pg (25-34); MEAN CORPUSCULAR HGB CONC 32.9 g/dl (32-36); MEAN PLATELET VOLUME 11.2 fL (7.4-10.4); PLATELET COUNT 238 K/uL (130-400); RED BLOOD COUNT 3.28 M/uL (4.7-6.1); WHITE BLOOD COUNT 10.17 K/uL (4.8-10.8)
[2017-03-08 07:07] LABS: ALB/GLOB RATIO 0.5 (0.9-2); BUN/CREATININE RATIO 16.2 (10-20); CALCIUM 7.8 mg/dl (8.5-10.1); CREATININE 0.89 mg/dl (0.60-1.40); POTASSIUM 3.5 mmol/L (3.5-5.1)
[2017-03-08] MEDS: IPRATROPIUM BROMIDE/ALBUTEROL respimat INH INH SCH ×4 (08:22→21:34)
[2017-03-08] MEDS: GEMFIBROZIL 600 MG TAB PO SCH ×2 (08:23→21:34)
[2017-03-08] MEDS: CLOPIDOGREL BISULFATE 75 MG TAB PO SCH (08:23)
[2017-03-08] MEDS: ASPIRIN 81 MG ECTAB PO SCH (08:23)
[2017-03-08] MEDS: DIVALPROEX SODIUM 500 MG DELAY RELEASE TAB PO SCH ×2 (08:23→21:34)
[2017-03-08] MEDS: CEFEPIME IV 2,000 MG in SYRINGE 7.5 ML IV SCH ×2 (11:36→21:33)
--- NOTE | 2017-03-08 12:00 | Family Medicine Progress Note ---
Progress Note Date of Service Mar 08, 2017. Subjective Pt evaluation today including: conversation w/ patient, physical exam, chart review, lab review, review of studies, review of inpatient medication list Pain: denies PO Intake: adequate Overnight, fever of 38 at 3:50 AM, since resolved. Patient denies abominal pain , N/V resolved. He does report some urinary urgency without dysuria, hematuria. NO Chest pain, SOB, cough, wheezing. Constitutional: + fever (resolved), No chills, No weakness, No fatigue Respiratory: No cough, No wheezing, No shortness of breath Cardiovascular: No chest pain, No edema, No palpitations Abdomen: No pain, No nausea, No vomiting Male : + problem reported (urinary urgency) Skin: No rash, No itch Medications Current Inpatient Medications Medications (Trade) Dose Ordered Sig/Radha Route Start Time Stop Time Status Last Admin Dose Admin Heparin Sodium (Porcine) (Heparin Sq 5000 Unit/0.5ml) 5,000 unit Q8 SQ 03/06/17 06:00 04/05/17 05:59 03/08/17 06:00 5,000 UNIT Acetaminophen (Tylenol Tab) 650 mg Q4H PRN PO 03/05/17 23:45 04/04/17 23:44 03/07/17 17:45 650 MG Ondansetron HCl (Zofran Inj) 4 mg Q6H PRN IV 03/05/17 23:45 04/04/17 23:44 03/06/17 07:32 4 MG Aspirin (Ecotrin Tab) 81 mg DAILY PO 03/06/17 09:00 04/05/17 08:59 03/08/17 08:23 81 MG Atorvastatin Calcium (Lipitor Tab) 40 mg HS PO 03/06/17 21:00 04/05/17 20:59 03/07/17 20:30 40 MG Bupropion HCl (Wellbutrin Tab) 100 mg BID PO 03/06/17 09:00 04/05/17 08:59 03/08/17 08:24 100 MG Clopidogrel Bisulfate (plAVix TAB) 75 mg DAILY PO 03/06/17 09:00 04/05/17 08:59 03/08/17 08:23 75 MG Divalproex Sodium (Depakote Delay Rel Tab) 500 mg BID PO 03/06/17 09:00 04/05/17 08:59 03/08/17 08:23 500 MG Gemfibrozil (Lopid Tab) 600 mg BID PO 03/06/17 09:00 04/05/17 08:59 03/08/17 08:23 600 MG Trazodone HCl (Desyrel Tab) 100 mg HS PO 03/06/17 21:00 04/05/17 20:59 03/07/17 20:30 100 MG Cefepime HCl 2000 mg/Syringe 20 ml @ 5 mls/min Q12H IV 03/06/17 10:00 03/15/17 23:59 03/08/17 11:36 5 MLS/MIN Ioversol (Optiray 320) 100 ml UD PRN IV 03/07/17 10:00 03/11/17 09:59 Albuterol/ Ipratropium (Combivent Respimat Inh) 1 puffs QID INH 03/07/17 16:00 04/06/17 15:59 03/08/17 08:22 1 PUFFS Objective Vital Signs Date Time Temp Pulse Resp B/P (MAP) Pulse Ox O2 Delivery O2 Flow Rate FiO2 03/08/17 11:08 36.7 65 19 151/71 (97) 95 Room Air 03/08/17 08:00 95 Room Air 03/08/17 07:01 37.3 66 19 118/62 (80) 95 Room Air 03/08/17 04:00 Room Air 03/08/17 03:50 38.0 81 16 136/59 (84) 93 Room Air 03/08/17 00:01 Room Air 03/07/17 23:56 37.4 77 16 135/69 (91) 97 Room Air 03/07/17 20:00 Room Air 03/07/17 19:56 37.2 71 20 128/60 (82) 96 Room Air 03/07/17 16:00 Room Air 03/07/17 15:33 37.5 67 18 126/71 (89) 96 Room Air 03/07/17 12:31 36.6 61 20 137/75 (95) 97 Room Air Physical Exam General Appearance: WD/WN, no apparent distress Eyes: PERRL, EOMI Neck: supple, no adenopathy, trachea midline Respiratory/Chest: lungs clear, normal breath sounds, no respiratory distress Cardiovascular: regular rate, rhythm, no edema, no murmur Abdomen: normal bowel sounds, non tender, soft Extremities: no pedal edema, no calf tenderness Neurologic/Psychiatric: alert, normal mood/affect Skin: warm/dry, no rash Laboratory Results Results Past 24 Hours Test 03/08/17 06:16 Range/Units White Blood Count 10.17 4.8-10.8 K/uL Red Blood Count 3.28 4.7-6.1 M/uL Hemoglobin 10.1 14.0-18.0 g/dL Hematocrit 30.7 42-52 % Mean Corpuscular Volume 93.6 80-100 fL Mean Corpuscular Hemoglobin 30.8 25-34 pg Mean Corpuscular Hemoglobin Concent 32.9 32-36 g/dl RDW Standard Deviation 51.9 36.4-46.3 fL RDW Coefficient of Variation 15.1 11.5-14.5 % Platelet Count 238 130-400 K/uL Mean Platelet Volume 11.2 7.4-10.4 fL Sodium Level 136 136-145 mmol/L Potassium Level 3.5 3.5-5.1 mmol/L Chloride Level 109 98-107 mmol/L Carbon Dioxide Level 20 21-32 mmol/L Anion Gap 7.0 3-11 mmol/L Blood Urea Nitrogen 14 7-18 mg/dl Creatinine 0.89 0.60-1.40 mg/dl Est Creatinine Clear Calc Drug Dose 90.5 ml/min Estimated GFR () 109.2 Estimated GFR (Non- 94.3 BUN/Creatinine Ratio 16.2 10-20 Random Glucose 101 70-99 mg/dl Lactic Acid Level 0.8 0.4-2.0 mmol/L Calcium Level 7.8 8.5-10.1 mg/dl Total Bilirubin 0.2 0.2-1 mg/dl Aspartate Amino Transf (AST/SGOT) 64 15-37 U/L Alanine Aminotransferase (ALT/SGPT) 66 12-78 U/L Alkaline Phosphatase 77 45-117 U/L Total Protein 5.5 6.4-8.2 gm/dl Albumin 1.8 3.4-5.0 gm/dl Globulin 3.7 2.5-4.0 gm/dl Albumin/Globulin Ratio 0.5 0.9-2 Microbiology Results 03/08/17 Blood Culture, Received Pending 03/08/17 Blood Culture, Received Pending Assessment and Plan 57 yo M hx of COPD, CAD p/w fever cough, encephalopathy leukocytosis admitted with gram negative bacteremia in the setting of suspected Acute cystitis 57 year old male with COPD presents with fever, altered mental state and cough. Hypotensive and tachycardic in the ER with temperature and raised WBC suggestive of sepsis. Patient has had preliminary blood cultures grow 1/2 gram negative bacilli. Still with unknown source of infection Sepsis/ Gram negative Bacteremia : - likely secondary to Cystitis although GI source has including Gallbladder, colon has not be definitely ruled out - UA with +1 bacteria, Bladder thickening on U/S, no evidence of pyelonephritis, CT chest(03/05) : left kidney edema and stranding - initially on Vancomycin, Cefepime; Vanc d/c'd with gram neg bacilli on blood cx -clinically improved, Leukocytosis resolved - Continue IV cefepime, Repeat Blood cx - GI , General Surgery input appreciated. -HIDA Scan planned for 03/10 , rule out cholecystitis etiology but if tolerates oral intake well - less likely and will d/c HIDA Per GI, will need Endoscopy, Colonoscpy prior to discharge BARRERA on CKD stage 3 - creatinine improved , Cr. .89 - f/u repeat PRP Hypotension sec to sepsis resolved, clinically improved -given 4L NSS in ED - no longer on IV fluids -antihypertensives remain held Continue to monitor Fecal occult blood positive stool - Hgb currently stable - continue to monitor - Continue Protonix Coronary artery disease - continue aspirin, clopidogrel and atorvastatin. - carvedilol and lisinopril remain held -Monitor BP COPD - duonebs PRN Depression/Anxiety Continue depakote, wellbutrin, trazodone. DVT prophylaxis - heparin q8 Continued [facility] stay due to: abnormal vital signs Discharge planning: other ([facility]) Resident Tracking Resident Involvement: Resident Care Provided Care Provided: Adult Hospital Medicine Reviewed: Pt Seen/Exam by Me History no concerns. comfortable in bed Constitutional: denies: fever Respiratory: negative: short of breath Cardiovascular: denies chest pain Gastrointestinal/Abdominal: negative: abdominal pain General Appearance: no apparent distress Respiratory: lungs clear, no respiratory distress Cardiovascular: regular rate, rhythm Gastrointestinal: normal bowel sounds, non tender, soft Neurologic/Psychiatric: alert, oriented x 3 Skin Characteristics: warm/dry Assessment/Plan Resident Physician Supervision Note: I independently interviewed and examined the patient and verified the pabon history and physical, reviewed labs and image studies, discussed the case with the resident Dr. Dr. Gan and agree with the findings and care plan.
--- NOTE | 2017-03-08 12:04 | Medical Consult ---
Consultation Note Date of Service Mar 08, 2017. Consultation Note Full note dictated. Discussed with Dr. Donovan. His symptoms are most c/w with gram negative bacteremia from urinary source. He has no pain or discomfort in his RUQ. No further nausea or vomiting. CT with equivocal findings around area of the pancreas and his gallbladder. I would recommend HIDA to rule out GB - this can be done on Friday. It is OK to advance diet as tolerated. If symptoms continue to improve over weekend, can also cancel Friday's hida. Will follow.
--- NOTE | 2017-03-08 14:04 | Gastroenterology Progress Note ---
Progress Note Date of Service: Mar 08, 2017 Subjective Pt evaluation today including: conversation w/ patient, physical exam, chart review, lab review, review of studies, review of inpatient medication list cc f/u diarrhea and abd pain HPI Per nurse patient had loose stool times one yesterday and no stools today. Pt denies abd pain and denies nausea. Is tolerating solid diet. Review of Systems Respiratory: No shortness of breath Cardiac: No chest pain Medications Current Inpatient Medications Medications (Trade) Dose Ordered Sig/Radha Route Start Time Stop Time Status Last Admin Dose Admin Heparin Sodium (Porcine) (Heparin Sq 5000 Unit/0.5ml) 5,000 unit Q8 SQ 03/06/17 06:00 04/05/17 05:59 03/08/17 06:00 5,000 UNIT Acetaminophen (Tylenol Tab) 650 mg Q4H PRN PO 03/05/17 23:45 04/04/17 23:44 03/07/17 17:45 650 MG Ondansetron HCl (Zofran Inj) 4 mg Q6H PRN IV 03/05/17 23:45 04/04/17 23:44 03/06/17 07:32 4 MG Aspirin (Ecotrin Tab) 81 mg DAILY PO 03/06/17 09:00 04/05/17 08:59 03/08/17 08:23 81 MG Atorvastatin Calcium (Lipitor Tab) 40 mg HS PO 03/06/17 21:00 04/05/17 20:59 03/07/17 20:30 40 MG Bupropion HCl (Wellbutrin Tab) 100 mg BID PO 03/06/17 09:00 04/05/17 08:59 03/08/17 08:24 100 MG Clopidogrel Bisulfate (plAVix TAB) 75 mg DAILY PO 03/06/17 09:00 04/05/17 08:59 03/08/17 08:23 75 MG Divalproex Sodium (Depakote Delay Rel Tab) 500 mg BID PO 03/06/17 09:00 04/05/17 08:59 03/08/17 08:23 500 MG Gemfibrozil (Lopid Tab) 600 mg BID PO 03/06/17 09:00 04/05/17 08:59 03/08/17 08:23 600 MG Trazodone HCl (Desyrel Tab) 100 mg HS PO 03/06/17 21:00 04/05/17 20:59 03/07/17 20:30 100 MG Cefepime HCl 2000 mg/Syringe 20 ml @ 5 mls/min Q12H IV 03/06/17 10:00 03/15/17 23:59 03/08/17 11:36 5 MLS/MIN Ioversol (Optiray 320) 100 ml UD PRN IV 03/07/17 10:00 03/11/17 09:59 Albuterol/ Ipratropium (Combivent Respimat Inh) 1 puffs QID INH 03/07/17 16:00 04/06/17 15:59 03/08/17 08:22 1 PUFFS Objective Vital Signs Date Time Temp Pulse Resp B/P (MAP) Pulse Ox O2 Delivery O2 Flow Rate FiO2 03/08/17 12:00 95 Room Air 03/08/17 11:08 36.7 65 19 151/71 (97) 95 Room Air 03/08/17 08:00 95 Room Air 03/08/17 07:01 37.3 66 19 118/62 (80) 95 Room Air 03/08/17 04:00 Room Air 03/08/17 03:50 38.0 81 16 136/59 (84) 93 Room Air 03/08/17 00:01 Room Air 03/07/17 23:56 37.4 77 16 135/69 (91) 97 Room Air 03/07/17 20:00 Room Air 03/07/17 19:56 37.2 71 20 128/60 (82) 96 Room Air 03/07/17 16:00 Room Air 03/07/17 15:33 37.5 67 18 126/71 (89) 96 Room Air Physical Exam General Appearance: WD/WN, no apparent distress Respiratory/Chest: lungs clear, no respiratory distress Cardiovascular: no edema, no murmur Abdomen: normal bowel sounds, non tender, soft, no organomegaly, no pulsatile mass Neurologic/Psych: alert, normal mood/affect, oriented x 3 Skin: normal color Laboratory Results Last 24 Hours Test 03/07/17 14:26 03/08/17 06:16 Total Bilirubin 0.2 mg/dl 0.2 mg/dl Direct Bilirubin < 0.1 mg/dl Aspartate Amino Transf (AST/SGOT) 55 U/L 64 U/L Alanine Aminotransferase (ALT/SGPT) 54 U/L 66 U/L Alkaline Phosphatase 79 U/L 77 U/L Total Protein 6.2 gm/dl 5.5 gm/dl Albumin 2.0 gm/dl 1.8 gm/dl Lipase 340 U/L White Blood Count 10.17 K/uL Red Blood Count 3.28 M/uL Hemoglobin 10.1 g/dL Hematocrit 30.7 % Mean Corpuscular Volume 93.6 fL Mean Corpuscular Hemoglobin 30.8 pg Mean Corpuscular Hemoglobin Concent 32.9 g/dl RDW Standard Deviation 51.9 fL RDW Coefficient of Variation 15.1 % Platelet Count 238 K/uL Mean Platelet Volume 11.2 fL Sodium Level 136 mmol/L Potassium Level 3.5 mmol/L Chloride Level 109 mmol/L Carbon Dioxide Level 20 mmol/L Anion Gap 7.0 mmol/L Blood Urea Nitrogen 14 mg/dl Creatinine 0.89 mg/dl Est Creatinine Clear Calc Drug Dose 90.5 ml/min Estimated GFR () 109.2 Estimated GFR (Non- 94.3 BUN/Creatinine Ratio 16.2 Random Glucose 101 mg/dl Lactic Acid Level 0.8 mmol/L Calcium Level 7.8 mg/dl Globulin 3.7 gm/dl Albumin/Globulin Ratio 0.5 Assessment and Plan heme positive stool anemia--follow--slight drop today. diarrhea--cdiff negative, cx ngsf--coloscopy recommended duodenal thickening on CT--EGD recommended, PPI po bid to cover PUD, would stop ASA if not critical for other medical conditions. GB thickening on CT--no RUQ pain to suggest cholecystitis Recommend EGD and colonoscopy when patient stable from sepsis standpoint.
--- NOTE | 2017-03-08 14:15 | SURGICAL CONSULTATION ---
DATE OF CONSULTATION: 03/08/2017 REFERRING PHYSICIAN: Dr. Washington Gan REASON FOR REFERRAL: Gram-negative bacteremia. HISTORY OF PRESENT ILLNESS: The patient is a 57-year-old inmate who presented to the hospital on March 05 complaining of fever, altered mental status, abdominal pain, nausea and vomiting. He notes that he awoke that morning just not feeling well. He had a few weeks of coughing spells going on prior to this, but on the , woke up with generalized abdominal pain, worse in the left side and radiating somewhat down to his left abdomen. This was constant and achy. It was not crampy. It was not associated with eating. He did note burning in his urine and was told he had blood in his urine. He did not note any back pain other than his typical back pain associated with his degenerative disc disease. At the [place] [facility], he was evaluated and was felt to not be acting himself and had mental status changes. He presented to the Emergency Room and was found to have a headache with severity of 8/10. He also noted some urinary frequency and some diarrhea with some darker stools. His evaluation in the Emergency Room included blood cultures, which showed evidence of gram-negative bacteremia. He had a CT scan done, which showed a normal size gallbladder, but mild gallbladder wall thickening. There was some mild pericholecystic edema as well as some edema around the pancreatic tail. Thus, we were asked to see him to rule out gallbladder issues. His urine did have some evidence of hematuria. He currently is having no abdominal pain on the right side. He still notes some mild discomfort on the left upper quadrant, kind of radiating downward. He feels this may be related to eating a lot of ice. He has no further nausea or vomiting. His mental status appears to have cleared. PAST MEDICAL HISTORY: Notable for a heart attack and stent placements. The last one was in 2007. He has COPD. He has hypocholesterolemia. He denies any operations on his abdomen before. He did have a colonoscopy with polyp removal around age 49, he thinks. FAMILY HISTORY: He tells me he has not spoken to his family in 40 years, and so, is unaware of most of his family history. SOCIAL HISTORY: He smokes tobacco, denies alcohol. He is incarcerated at [facility]. ALLERGIES: None. HOME MEDICATIONS: Include aspirin, atorvastatin, Wellbutrin, carvedilol, Plavix, Depakote, gemfibrozil, lisinopril, meloxicam for arthritis, trazodone. REVIEW OF SYSTEMS: CONSTITUTIONAL: On admission, he noted some malaise and fevers and chills. EYES: No problem reported. EAR, NOSE AND THROAT: No problem reported. RESPIRATORY: He had a cough prior, but denies any shortness of breath or wheezing. CARDIOVASCULAR: History of heart attack in the past. Currently, no chest pain or palpitations. ABDOMEN: He noted diarrhea. He noted nausea and vomiting on admission, but this has resolved. MUSCULOSKELETAL: He has chronic back pain. GENITOURINARY: Noted frequency and dysuria. NEUROLOGIC: He had dizziness and headache on admission, has a history of migraines. PSYCHIATRIC: No depression, no anxiety. ENDOCRINE: Noted frequency with urination. HEMATOLOGIC: He is on Plavix. INTEGUMENTARY: No rash. No itching. PHYSICAL EXAMINATION: GENERAL: He is a healthy man, currently in no acute distress. VITAL SIGNS: His blood pressure is 118/62, heart rate 66, respiratory rate 19, his current temperature is 37.3. He did have a fever to 38 earlier today. His ins and outs are notable for 940 documented as ____ IV fluids, 1550 urine output and 3 bowel movements were recorded on March 06 and non since. Current weight is 83 kilograms. He is alert, in no acute distress. EYES, EARS, NOSE AND THROAT: Sclerae are anicteric. Conjunctivae not injected. Hearing appears normal. NECK: Supple. Trachea is midline. HEART: S1, S2 are present. Regular rate and rhythm. No murmurs appreciated. LUNGS: Clear to auscultation bilaterally. No use of accessory muscles. ABDOMEN: Currently, soft. He has bowel tones. He really is nontender, nondistended. There is no hepatosplenomegaly noted. EXTREMITIES: Warm. There is no evidence of cyanosis or edema. NEUROLOGIC: He is alert. He is oriented x3. Cranial nerves appear grossly intact. No gross motor deficit. LABORATORY STUDIES: Reviewed. His white blood cell count was 17.65 on admission. This peaked at 19.37 and is down to 10.17 today. H&H are 10.1 and 30.7, platelet count is 238. His chemistries, BMP is within normal with the exception of chloride of 109, bicarbonate of 20, BUN is 14, creatinine 0.8. His AST is mildly elevated at 64, ALT is normal at 66, alkaline phosphatase is normal at 77. Total bilirubin is normal at 0.2. Lipase is normal at 340. His INR is 1.1, PTT 35.4. Urinalysis had 1+ occult blood, trace leukocyte esterase, 5-10 WBCs, 5-10, RBCs and 1+ bacteria. Microbiology: Blood culture from March 05 showed gram-negative bacilli. Urine culture had no growth. Stool culture was negative. C. diff was negative. IMAGING STUDIES: Reviewed. This included an abdominal pelvic CT scan done on March 07, which shows some limited peripancreatic fat stranding along the dorsum of the tail. There is no intra or extrahepatic biliary ductal dilatation. His gallbladder is nondistended, though there is mild gallbladder wall thickening and pericholecystic fat stranding. He has retroperitoneal fluid on the left appearing to tract from the pancreatic tail, which could suggest interstitial edematous pancreatitis. He has some mild duodenal fat stranding and scattered bilateral pleural effusions and cardiomegaly. He had a retroperitoneal ultrasound done on March 06, which showed mild circumferential bladder wall thickening, but otherwise kidneys appeared normal. ASSESSMENT AND PLAN: Mr. Call is a 57-year-old gentleman with gram-negative bacteremia. Possible sources included his urine or an abdominal source. His CT scan does show some mild gallbladder wall thickening, but he has no symptoms attributable to his right upper quadrant. I would recommend a HIDA scan to rule out acute cholecystitis. Should his HIDA scan be normal, then I would have no trouble with advancing his diet and treating him for presumed gram-negative bacteremia from urinary source. I will order the HIDA. We will be happy to follow along. Thank you for this consultation.
--- NOTE | 2017-03-08 16:41 | ECHOCARDIOGRAM REPORT ---
*NOTICE TO RECEIVING DEMOCRAT AGENCY This information is strictly Confidential and protected under [place] law. [place] law prohibits you from making any further disclosure of this information unless further disclosure is expressly permitted by the written consent of the person to whom it pertains or is authorized by law. A general authorization for the release of medical or other information is not sufficient for this purpose. Hospital accepts no responsibility if the information is made available to any other person, INCLUDING THE PATIENT. Interpretation Summary * Name: BIB JAMES [id number] Study Date: 03/08/2017 04:28 PM BP: 151/71 mmHg * Patient Location: .2E\S\E210\S\1 HR: 65 * : 1960 (M/d/yyyy) Gender: Male Height: 69 in * Age: 57 yrs Ethnicity: CA Weight: 182 lb * Ordering Physician: Ebony Donovan * Referring Physician: Andrea MAYS * Performed By: Agustina Aldridge RDCS * * Reason For Study: Bacteremia * BSA: 2.0 m2 * -- Conclusions -- * 1. Normal left ventricular size and systolic function. EF 60-65%. No regional wall motion abnormalities. No left ventricular hypertrophy. No significant diastolic dysfunction. * 2. No significant valvular abnormalities visualized. * 3. Normal estimated right ventricular systolic pressure. * 4. Technically difficult study, enhanced with IV Definity. * 5. No prior study available for comparison. Procedure Details * A complete two-dimensional transthoracic echocardiogram was performed (2D, M-mode, Doppler and color flow Doppler). Left Ventricle * Normal left ventricular size and systolic function. EF 60-65%. No regional wall motion abnormalities. No left ventricular hypertrophy. No significant diastolic dysfunction. Right Ventricle * The right ventricle is normal in size and function. * The right ventricular systolic function is normal as assessed by tricuspid annular plane systolic excursion (TAPSE) (normal >1.5 cm). Atria * The left atrial size is normal. * Right atrial size is normal. * There is no evidence of atrial septal defect, but resolution does not allow assessment for a patent foramen ovale. Mitral Valve * The mitral valve leaflets appear normal. There is no evidence of stenosis, fluttering, or prolapse. * There is mild mitral regurgitation. Tricuspid Valve * The tricuspid valve is not well visualized, but is grossly normal. * There is no tricuspid stenosis. * There is trace tricuspid regurgitation. Aortic Valve * The aortic valve is trileaflet. * No hemodynamically significant valvular aortic stenosis. * No aortic regurgitation is present. Pulmonic Valve * The pulmonary valve is inadequately visualized, but the Doppler data is adequate for interpretation. * There is no pulmonic valvular stenosis. * Mild pulmonic valvular regurgitation. Great Vessels * The aortic root is normal size. * Normal pulmonary venous flow pattern. Pericardium/Pleural * There is no pericardial effusion. Great Vessels * Normal inferior vena cava size and collapsability with sniff indicates a normal right atrial pressure of 3 mmHg MMode 2D Measurements and Calculations IVSd 0.87 cm IVSs 1.4 cm LVIDd 5.2 cm LVIDs 3.2 cm LVPWd 0.91 cm LVPWs 1.7 cm IVS/LVPW 0.96 FS 38.9 % EDV(Teich) 131.7 ml ESV(Teich) 41.1 ml EF(Teich) 68.8 % EDV(cubed) 143.8 ml ESV(cubed) 32.9 ml EF(cubed) 77.1 % % IVS thick 65.1 % % LVPW thick 87.5 % LV mass(C)d 168.2 grams LV mass(C)dI 84.8 grams/m\S\2 LV mass(C)s 185.2 grams LV mass(C)sI 93.3 grams/m\S\2 SV(Teich) 90.7 ml SI(Teich) 45.7 ml/m\S\2 SV(cubed) 110.9 ml SI(cubed) 55.9 ml/m\S\2 Ao root diam 3.3 cm Ao root area 8.5 cm\S\2 ACS 1.9 cm LA dimension 4.1 cm LA/Ao 1.2 LVAd ap4 39.5 cm\S\2 LVLd ap4 8.8 cm EDV(MOD-sp4) 148.8 ml EDV(sp4-el) 150.6 ml LVAs ap4 22.4 cm\S\2 LVLs ap4 7.7 cm ESV(MOD-sp4) 58.0 ml ESV(sp4-el) 55.3 ml EF(MOD-sp4) 61.0 % EF(sp4-el) 63.3 % LVAd ap2 29.8 cm\S\2 LVLd ap2 8.6 cm EDV(MOD-sp2) 86.6 ml EDV(sp2-el) 88.3 ml LVAs ap2 15.1 cm\S\2 LVLs ap2 6.6 cm ESV(MOD-sp2) 29.3 ml ESV(sp2-el) 29.1 ml EF(MOD-sp2) 66.1 % EF(sp2-el) 67.1 % LVLd %diff -2.70 % EDV(MOD-bp) 112.9 ml LVLs %diff -16.01 % ESV(MOD-bp) 42.1 ml EF(MOD-bp) 62.7 % SV(MOD-sp4) 90.8 ml SI(MOD-sp4) 45.8 ml/m\S\2 SV(MOD-sp2) 57.3 ml SI(MOD-sp2) 28.9 ml/m\S\2 SV(MOD-bp) 70.8 ml SI(MOD-bp) 35.7 ml/m\S\2 SV(sp4-el) 95.2 ml SI(sp4-el) 48.0 ml/m\S\2 SV(sp2-el) 59.2 ml SI(sp2-el) 29.8 ml/m\S\2 Doppler Measurements and Calculations MV E max maximo 97.6 cm/sec MV A max maximo 86.8 cm/sec MV E/A 1.1 MV dec time 0.25 sec Ao V2 max 149.3 cm/sec Ao max PG 8.9 mmHg Ao max PG (full) 3.6 mmHg LV V1 max PG 5.3 mmHg LV V1 max 114.7 cm/sec PA V2 max 151.0 cm/sec PA max PG 9.1 mmHg TR max maximo 249.2 cm/sec RVSP(TR) 27.9 mmHg RAP systole 3.0 mmHg
[2017-03-08] MEDS: PANTOprazole SOD 40 MG TAB PO SCH (17:05)
[2017-03-08] MEDS: TRAZODONE HCL 100 MG TAB PO SCH (21:34)
[2017-03-08] MEDS: ATORVASTATIN 20 MG TAB PO SCH (21:34)
[2017-03-09] VITALS (8 sets, daily range): BP systolic 113–147; BP diastolic 69–82; PULSE 59–70; TEMP 36.8–37.6; O2SAT 92–96
[2017-03-09] MEDS: HEPARIN SOD 5000 UNIT/0.5 ML CARP SQ SCH ×3 (06:16→22:03)
[2017-03-09 07:44] LABS: BASO % 0.6 %; BASO ABS # 0.05 K/uL (0-0.2); COMPLETE YES; EOS % 0.7 %; HEMATOCRIT 30.5 % (42-52); IG% 1.6 %; LYMPH % 20.3 %; LYMPH ABS # 1.75 K/uL (1.2-3.4); MEAN CORPUSCULAR HEMOGLOBIN 31.1 pg (25-34); MEAN CORPUSCULAR HGB CONC 33.4 g/dl (32-36); MEAN PLATELET VOLUME 11.2 fL (7.4-10.4); NEUT % 59.8 %; PLATELET COUNT 305 K/uL (130-400); RED BLOOD COUNT 3.28 M/uL (4.7-6.1); WHITE BLOOD COUNT 8.64 K/uL (4.8-10.8)
[2017-03-09] MEDS: IPRATROPIUM BROMIDE/ALBUTEROL respimat INH INH SCH ×4 (08:03→19:50)
[2017-03-09] MEDS: CLOPIDOGREL BISULFATE 75 MG TAB PO SCH (08:04)
[2017-03-09] MEDS: PANTOprazole SOD 40 MG TAB PO SCH ×2 (08:04→19:51)
[2017-03-09] MEDS: DIVALPROEX SODIUM 500 MG DELAY RELEASE TAB PO SCH ×2 (08:04→19:50)
[2017-03-09] MEDS: ASPIRIN 81 MG ECTAB PO SCH (08:04)
[2017-03-09] MEDS: GEMFIBROZIL 600 MG TAB PO SCH ×2 (08:04→19:51)
[2017-03-09] MEDS: CEFEPIME IV 2,000 MG in SYRINGE 7.5 ML IV SCH (08:05)
[2017-03-09] MEDS: ACETAMINOPHEN 325 MG TAB PO PRN (08:07)
[2017-03-09 08:12] LABS: CALCIUM 8.5 mg/dl (8.5-10.1); CREATININE 0.91 mg/dl (0.60-1.40); POTASSIUM 3.7 mmol/L (3.5-5.1)
--- NOTE | 2017-03-09 08:13 | Family Medicine Progress Note ---
Progress Note Date of Service Mar 09, 2017. Subjective Pt evaluation today including: conversation w/ patient, physical exam, chart review, lab review, review of studies, review of inpatient medication list Pain: denies PO Intake: adequate Voiding: no voiding problems No acute events. Patient reports he is feeling better in general. He reports urinary urgency has resolved. He denies chills, dysuria, hematuria, N/V, abdominal pain, CP, SOB, Additional Comments: Constitutional: + fever (resolved), No chills, No weakness, No fatigue Respiratory: No cough, No wheezing, No shortness of breath Cardiovascular: No chest pain, No edema, No palpitations Abdomen: No pain, No nausea, No vomiting Male : No urinary urgency NO dysuria, No hematuria Skin: No rash, No itch Medications Current Inpatient Medications Medications (Trade) Dose Ordered Sig/Radha Route Start Time Stop Time Status Last Admin Dose Admin Heparin Sodium (Porcine) (Heparin Sq 5000 Unit/0.5ml) 5,000 unit Q8 SQ 03/06/17 06:00 04/05/17 05:59 03/09/17 06:16 5,000 UNIT Acetaminophen (Tylenol Tab) 650 mg Q4H PRN PO 03/05/17 23:45 04/04/17 23:44 03/09/17 08:07 650 MG Ondansetron HCl (Zofran Inj) 4 mg Q6H PRN IV 03/05/17 23:45 04/04/17 23:44 03/06/17 07:32 4 MG Aspirin (Ecotrin Tab) 81 mg DAILY PO 03/06/17 09:00 04/05/17 08:59 03/09/17 08:04 81 MG Atorvastatin Calcium (Lipitor Tab) 40 mg HS PO 03/06/17 21:00 04/05/17 20:59 03/08/17 21:34 40 MG Bupropion HCl (Wellbutrin Tab) 100 mg BID PO 03/06/17 09:00 04/05/17 08:59 03/09/17 08:03 100 MG Clopidogrel Bisulfate (plAVix TAB) 75 mg DAILY PO 03/06/17 09:00 04/05/17 08:59 03/09/17 08:04 75 MG Divalproex Sodium (Depakote Delay Rel Tab) 500 mg BID PO 03/06/17 09:00 04/05/17 08:59 03/09/17 08:04 500 MG Gemfibrozil (Lopid Tab) 600 mg BID PO 03/06/17 09:00 04/05/17 08:59 03/09/17 08:04 600 MG Trazodone HCl (Desyrel Tab) 100 mg HS PO 03/06/17 21:00 04/05/17 20:59 03/08/17 21:34 100 MG Cefepime HCl 2000 mg/Syringe 20 ml @ 5 mls/min Q12H IV 03/06/17 10:00 03/15/17 23:59 03/09/17 08:05 5 MLS/MIN Ioversol (Optiray 320) 100 ml UD PRN IV 03/07/17 10:00 03/11/17 09:59 Albuterol/ Ipratropium (Combivent Respimat Inh) 1 puffs QID INH 03/07/17 16:00 04/06/17 15:59 03/09/17 08:03 1 PUFFS Pantoprazole Sodium (Protonix Tab) 40 mg BID PO 03/08/17 17:00 04/07/17 16:59 03/09/17 08:04 40 MG Objective Vital Signs Date Time Temp Pulse Resp B/P (MAP) Pulse Ox O2 Delivery O2 Flow Rate FiO2 03/09/17 07:34 37.1 68 18 136/71 (92) 95 Room Air 03/09/17 04:08 Room Air 03/09/17 03:54 37.6 70 18 128/70 (89) 96 Room Air 03/09/17 00:02 37.1 59 16 113/69 (84) 92 Room Air 03/09/17 00:02 Room Air 03/08/17 20:02 37.5 68 18 132/68 (89) 95 Room Air 03/08/17 20:00 Room Air 03/08/17 16:46 37.3 70 18 137/70 (92) 96 Room Air 03/08/17 16:00 97 Room Air 03/08/17 12:00 95 Room Air 03/08/17 11:08 36.7 65 19 151/71 (97) 95 Room Air Physical Exam Notes: General Appearance: WD/WN, no apparent distress Eyes: PERRL, EOMI Neck: supple, no adenopathy, trachea midline Respiratory/Chest: lungs clear, normal breath sounds, no respiratory distress Cardiovascular: S1, S2, regular rate, rhythm, no edema, no murmur Abdomen: normal bowel sounds, non tender, soft Extremities: no pedal edema, no calf tenderness Neurologic/Psychiatric: alert, normal mood/affect Skin: warm/dry, no rash Laboratory Results Results Past 24 Hours Test 03/09/17 07:13 Range/Units White Blood Count 8.64 4.8-10.8 K/uL Red Blood Count 3.28 4.7-6.1 M/uL Hemoglobin 10.2 14.0-18.0 g/dL Hematocrit 30.5 42-52 % Mean Corpuscular Volume 93.0 80-100 fL Mean Corpuscular Hemoglobin 31.1 25-34 pg Mean Corpuscular Hemoglobin Concent 33.4 32-36 g/dl Platelet Count 305 130-400 K/uL Mean Platelet Volume 11.2 7.4-10.4 fL Neutrophils (%) (Auto) 59.8 % Lymphocytes (%) (Auto) 20.3 % Monocytes (%) (Auto) 17.0 % Eosinophils (%) (Auto) 0.7 % Basophils (%) (Auto) 0.6 % Neutrophils # (Auto) 5.17 1.4-6.5 K/uL Lymphocytes # (Auto) 1.75 1.2-3.4 K/uL Monocytes # (Auto) 1.47 0.11-0.59 K/uL Eosinophils # (Auto) 0.06 0-0.5 K/uL Basophils # (Auto) 0.05 0-0.2 K/uL RDW Standard Deviation 52.0 36.4-46.3 fL RDW Coefficient of Variation 15.2 11.5-14.5 % Immature Granulocyte % (Auto) 1.6 % Immature Granulocyte # (Auto) 0.14 0.00-0.02 K/uL Sodium Level 138 136-145 mmol/L Potassium Level 3.7 3.5-5.1 mmol/L Chloride Level 109 98-107 mmol/L Carbon Dioxide Level 21 21-32 mmol/L Anion Gap 9.0 3-11 mmol/L Blood Urea Nitrogen 15 7-18 mg/dl Creatinine 0.91 0.60-1.40 mg/dl Est Creatinine Clear Calc Drug Dose 88.5 ml/min Estimated GFR () 107.3 Estimated GFR (Non- 92.6 BUN/Creatinine Ratio 16.0 10-20 Random Glucose 88 70-99 mg/dl Calcium Level 8.5 8.5-10.1 mg/dl Microbiology Results 03/08/17 Blood Culture, Received Pending 03/08/17 Blood Culture, Received Pending Assessment and Plan 57 yo M hx of COPD, CAD p/w fever cough, encephalopathy leukocytosis admitted with gram negative bacteremia in the setting of suspected Acute cystitis Sepsis/E coli Bacteremia : - likely secondary to Cystitis although GI source has including Gallbladder, colon has not been definitely ruled out - UA with +1 bacteria, Bladder thickening on U/S, no evidence of pyelonephritis, CT chest(03/05) : left kidney edema and stranding - initially on Vancomycin, Cefepime; Vanc d/c'd with E coli on blood cx - clinically improved, Leukocytosis resolved - Continue IV cefepime, ( Day 5 of Abx) - F/uRepeat Blood cx - GI , General Surgery input appreciated. -HIDA Scan canceled per GI due to low likelihood of gall bladder as source if infection -Per GI, will need Endoscopy, Colonoscopy prior to discharge BARRERA on CKD stage 3 - creatinine improved , Cr .91 - f/u repeat PRP Hypotension sec to septic shock resolved, clinically improved -given 4L NSS in ED - no longer on IV fluids -antihypertensives remain held Continue to monitor Fecal occult blood positive stool - Hgb currently stable - continue to monitor - Continue Protonix Coronary artery disease - continue aspirin, clopidogrel and atorvastatin. - carvedilol and lisinopril remain held -Monitor BP COPD - duonebs PRN Depression/Anxiety Continue depakote, wellbutrin, trazodone. DVT prophylaxis - heparin q8 Continued [facility] stay due to: multiple IV medications needed Resident Tracking Resident Involvement: Resident Care Provided Care Provided: Adult Hospital Medicine Reviewed: Pt Seen/Exam by Me History no concerns. Constitutional: denies: fever Respiratory: negative: short of breath Cardiovascular: denies chest pain Gastrointestinal/Abdominal: negative: abdominal pain General Appearance: no apparent distress Respiratory: lungs clear, no respiratory distress Cardiovascular: regular rate, rhythm Gastrointestinal: soft Neurologic/Psychiatric: alert, oriented x 3 Skin Characteristics: warm/dry Assessment/Plan Resident Physician Supervision Note: I independently interviewed and examined the patient and verified the pabon history and physical, reviewed labs and image studies, discussed the case with the resident Dr. Dr. Gan and agree with the findings and care plan.
--- NOTE | 2017-03-09 10:30 | Surgery Progress Note ---
Surgery Progress Note Date of Service Mar 09, 2017. Subjective Tolerated diet with no complaints of abdominal pain or nausea. Specifically, no discomfort in RUQ. Feels overall much better. Objective Vital Signs: Date Time Temp Pulse Resp B/P (MAP) Pulse Ox O2 Delivery O2 Flow Rate FiO2 03/09/17 08:00 95 Room Air 03/09/17 07:34 37.1 68 18 136/71 (92) 95 Room Air 03/09/17 04:08 Room Air 03/09/17 03:54 37.6 70 18 128/70 (89) 96 Room Air 03/09/17 00:02 37.1 59 16 113/69 (84) 92 Room Air 03/09/17 00:02 Room Air 03/08/17 20:02 37.5 68 18 132/68 (89) 95 Room Air 03/08/17 20:00 Room Air 03/08/17 16:46 37.3 70 18 137/70 (92) 96 Room Air 03/08/17 16:00 97 Room Air 03/08/17 12:00 95 Room Air 03/08/17 11:08 36.7 65 19 151/71 (97) 95 Room Air General Appearance: WD/WN, no apparent distress Abdomen: normal bowel sounds, non tender, non distended, soft Laboratory Results: Results Past 24 Hours Test 03/09/17 07:13 Range/Units White Blood Count 8.64 4.8-10.8 K/uL Red Blood Count 3.28 4.7-6.1 M/uL Hemoglobin 10.2 14.0-18.0 g/dL Hematocrit 30.5 42-52 % Mean Corpuscular Volume 93.0 80-100 fL Mean Corpuscular Hemoglobin 31.1 25-34 pg Mean Corpuscular Hemoglobin Concent 33.4 32-36 g/dl Platelet Count 305 130-400 K/uL Mean Platelet Volume 11.2 7.4-10.4 fL Neutrophils (%) (Auto) 59.8 % Lymphocytes (%) (Auto) 20.3 % Monocytes (%) (Auto) 17.0 % Eosinophils (%) (Auto) 0.7 % Basophils (%) (Auto) 0.6 % Neutrophils # (Auto) 5.17 1.4-6.5 K/uL Lymphocytes # (Auto) 1.75 1.2-3.4 K/uL Monocytes # (Auto) 1.47 0.11-0.59 K/uL Eosinophils # (Auto) 0.06 0-0.5 K/uL Basophils # (Auto) 0.05 0-0.2 K/uL RDW Standard Deviation 52.0 36.4-46.3 fL RDW Coefficient of Variation 15.2 11.5-14.5 % Immature Granulocyte % (Auto) 1.6 % Immature Granulocyte # (Auto) 0.14 0.00-0.02 K/uL Sodium Level 138 136-145 mmol/L Potassium Level 3.7 3.5-5.1 mmol/L Chloride Level 109 98-107 mmol/L Carbon Dioxide Level 21 21-32 mmol/L Anion Gap 9.0 3-11 mmol/L Blood Urea Nitrogen 15 7-18 mg/dl Creatinine 0.91 0.60-1.40 mg/dl Est Creatinine Clear Calc Drug Dose 88.5 ml/min Estimated GFR () 107.3 Estimated GFR (Non- 92.6 BUN/Creatinine Ratio 16.0 10-20 Random Glucose 88 70-99 mg/dl Calcium Level 8.5 8.5-10.1 mg/dl Microbiology Results 03/08/17 Blood Culture, Received Pending 03/08/17 Blood Culture, Received Pending Assessment & Plan 57 yr old man with gram negative bacteremia, most likely urine source given clinical symptoms. CT with some changes around gallbladder. However, he is tolerating diet with no abdominal pain or tenderness. Unlikely that GB is the source. Will cancel HIDA scan. OK to continue diet. Will sign off. Please call with questions.
--- NOTE | 2017-03-09 11:59 | Gastroenterology Progress Note ---
Progress Note Date of Service: Mar 09, 2017 Subjective Pt evaluation today including: conversation w/ patient, physical exam, chart review, lab review, review of studies, review of inpatient medication list cc f/u abd pain, heme pos stool, diarrhea HPI Pt denies abd pain. No diarrhea per patient. Tolerating solid diet. Noted cardiac echo done negative for vegetations Review of Systems Respiratory: No shortness of breath Cardiac: No chest pain Medications Current Inpatient Medications Medications (Trade) Dose Ordered Sig/Radha Route Start Time Stop Time Status Last Admin Dose Admin Heparin Sodium (Porcine) (Heparin Sq 5000 Unit/0.5ml) 5,000 unit Q8 SQ 03/06/17 06:00 04/05/17 05:59 03/09/17 06:16 5,000 UNIT Acetaminophen (Tylenol Tab) 650 mg Q4H PRN PO 03/05/17 23:45 04/04/17 23:44 03/09/17 08:07 650 MG Ondansetron HCl (Zofran Inj) 4 mg Q6H PRN IV 03/05/17 23:45 04/04/17 23:44 03/06/17 07:32 4 MG Aspirin (Ecotrin Tab) 81 mg DAILY PO 03/06/17 09:00 04/05/17 08:59 03/09/17 08:04 81 MG Atorvastatin Calcium (Lipitor Tab) 40 mg HS PO 03/06/17 21:00 04/05/17 20:59 03/08/17 21:34 40 MG Bupropion HCl (Wellbutrin Tab) 100 mg BID PO 03/06/17 09:00 04/05/17 08:59 03/09/17 08:03 100 MG Clopidogrel Bisulfate (plAVix TAB) 75 mg DAILY PO 03/06/17 09:00 04/05/17 08:59 03/09/17 08:04 75 MG Divalproex Sodium (Depakote Delay Rel Tab) 500 mg BID PO 03/06/17 09:00 04/05/17 08:59 03/09/17 08:04 500 MG Gemfibrozil (Lopid Tab) 600 mg BID PO 03/06/17 09:00 04/05/17 08:59 03/09/17 08:04 600 MG Trazodone HCl (Desyrel Tab) 100 mg HS PO 03/06/17 21:00 04/05/17 20:59 03/08/17 21:34 100 MG Cefepime HCl 2000 mg/Syringe 20 ml @ 5 mls/min Q12H IV 03/06/17 10:00 03/15/17 23:59 03/09/17 08:05 5 MLS/MIN Ioversol (Optiray 320) 100 ml UD PRN IV 03/07/17 10:00 03/11/17 09:59 Albuterol/ Ipratropium (Combivent Respimat Inh) 1 puffs QID INH 03/07/17 16:00 04/06/17 15:59 03/09/17 08:03 1 PUFFS Pantoprazole Sodium (Protonix Tab) 40 mg BID PO 03/08/17 17:00 04/07/17 16:59 03/09/17 08:04 40 MG Objective Vital Signs Date Time Temp Pulse Resp B/P (MAP) Pulse Ox O2 Delivery O2 Flow Rate FiO2 03/09/17 11:42 36.9 66 18 147/75 (99) 96 03/09/17 08:00 95 Room Air 03/09/17 07:34 37.1 68 18 136/71 (92) 95 Room Air 03/09/17 04:08 Room Air 03/09/17 03:54 37.6 70 18 128/70 (89) 96 Room Air 03/09/17 00:02 37.1 59 16 113/69 (84) 92 Room Air 03/09/17 00:02 Room Air 03/08/17 20:02 37.5 68 18 132/68 (89) 95 Room Air 03/08/17 20:00 Room Air 03/08/17 16:46 37.3 70 18 137/70 (92) 96 Room Air 03/08/17 16:00 97 Room Air 03/08/17 12:00 95 Room Air Physical Exam General Appearance: WD/WN, no apparent distress Respiratory/Chest: lungs clear, no respiratory distress Cardiovascular: regular rate, rhythm Abdomen: normal bowel sounds, non tender, soft, no organomegaly Neurologic/Psych: alert, normal mood/affect, oriented x 3 Skin: warm/dry Laboratory Results Last 24 Hours Test 03/09/17 07:13 White Blood Count 8.64 K/uL Red Blood Count 3.28 M/uL Hemoglobin 10.2 g/dL Hematocrit 30.5 % Mean Corpuscular Volume 93.0 fL Mean Corpuscular Hemoglobin 31.1 pg Mean Corpuscular Hemoglobin Concent 33.4 g/dl Platelet Count 305 K/uL Mean Platelet Volume 11.2 fL Neutrophils (%) (Auto) 59.8 % Lymphocytes (%) (Auto) 20.3 % Monocytes (%) (Auto) 17.0 % Eosinophils (%) (Auto) 0.7 % Basophils (%) (Auto) 0.6 % Neutrophils # (Auto) 5.17 K/uL Lymphocytes # (Auto) 1.75 K/uL Monocytes # (Auto) 1.47 K/uL Eosinophils # (Auto) 0.06 K/uL Basophils # (Auto) 0.05 K/uL RDW Standard Deviation 52.0 fL RDW Coefficient of Variation 15.2 % Immature Granulocyte % (Auto) 1.6 % Immature Granulocyte # (Auto) 0.14 K/uL Sodium Level 138 mmol/L Potassium Level 3.7 mmol/L Chloride Level 109 mmol/L Carbon Dioxide Level 21 mmol/L Anion Gap 9.0 mmol/L Blood Urea Nitrogen 15 mg/dl Creatinine 0.91 mg/dl Est Creatinine Clear Calc Drug Dose 88.5 ml/min Estimated GFR () 107.3 Estimated GFR (Non- 92.6 BUN/Creatinine Ratio 16.0 Random Glucose 88 mg/dl Calcium Level 8.5 mg/dl Assessment and Plan heme positive stool anemia--follow--stab;e diarrhea--cdiff negative, cx ngsf--coloscopy recommended duodenal thickening on CT--EGD recommended, PPI po bid to cover PUD, would stop ASA if not critical for other medical conditions. GB thickening on CT--no RUQ pain to suggest cholecystitis--surgery saw patient. Ecoli bacteremia--unclear source, urine perhaps but not definitive. cholecysitis seems unlikely given the lack of significant abd pain. Recommend EGD and colonoscopy when patient stable from sepsis standpoint. If blood cultures drawn yesterday are negative tomorrow then plan for EGD/ colonscopy perhaps friday. Will order clear liquid diet to start in am. .
[2017-03-09 13:15] LABS: O&P GIARDIA AG NOT DETECTED (NOT DETECTED)
[2017-03-09] MEDS: CEFTRIAXONE SOD INJ 1 GM in DEXTROSE 5% ADD-VANTAGE 50ML 50 ML IV SCH (19:44)
[2017-03-09] MEDS: ATORVASTATIN 20 MG TAB PO SCH (19:51)
[2017-03-09] MEDS: TRAZODONE HCL 100 MG TAB PO SCH (19:51)
[2017-03-10] VITALS (7 sets, daily range): BP systolic 122–146; BP diastolic 65–80; PULSE 62–83; TEMP 36.6–37.8; O2SAT 92–95
[2017-03-10] MEDS: HEPARIN SOD 5000 UNIT/0.5 ML CARP SQ SCH ×3 (05:55→22:18)
[2017-03-10 06:51] LABS: BASO % 0.6 %; BASO ABS # 0.05 K/uL (0-0.2); COMPLETE YES; LYMPH % 16.7 %; LYMPH ABS # 1.45 K/uL (1.2-3.4); MEAN CELL VOLUME 93.2 fL (80-100); MEAN CORPUSCULAR HEMOGLOBIN 30.8 pg (25-34); MEAN PLATELET VOLUME 10.8 fL (7.4-10.4); MONO % 16.7 %; PLATELET COUNT 420 K/uL (130-400); RED BLOOD COUNT 3.54 M/uL (4.7-6.1); WHITE BLOOD COUNT 8.66 K/uL (4.8-10.8)
[2017-03-10 07:18] LABS: BUN/CREATININE RATIO 15.7 (10-20); CALCIUM 8.3 mg/dl (8.5-10.1); CREATININE 0.98 mg/dl (0.60-1.40); POTASSIUM 3.7 mmol/L (3.5-5.1)
[2017-03-10 07:21] LABS: ALB/GLOB RATIO 0.4 (0.9-2)
[2017-03-10] MEDS: IPRATROPIUM BROMIDE/ALBUTEROL respimat INH INH SCH ×4 (08:29→19:41)
[2017-03-10] MEDS: ACETAMINOPHEN 325 MG TAB PO PRN (08:30)
[2017-03-10] MEDS: GEMFIBROZIL 600 MG TAB PO SCH ×2 (08:31→19:49)
[2017-03-10] MEDS: CLOPIDOGREL BISULFATE 75 MG TAB PO SCH (08:31)
[2017-03-10] MEDS: DIVALPROEX SODIUM 500 MG DELAY RELEASE TAB PO SCH ×2 (08:31→19:48)
[2017-03-10] MEDS: PANTOprazole SOD 40 MG TAB PO SCH ×2 (08:31→19:49)
[2017-03-10] MEDS: ASPIRIN 81 MG ECTAB PO SCH (08:32)
--- NOTE | 2017-03-10 10:16 | Progress Note ---
Progress Note Date of Service Mar 10, 2017. Progress Note ID Consult Dictated #[id number] A/P: 1. E. coli Sepsis - suspect GI source 2. Leukocytosis - resolved 3. Fever -Continue CTX for now, on clears currently and npo tonight for colon/egd in am -When tolerating po can change to po augmentin 875mg po bid to complete 14 days from first negative culture (03/08) -LFTs slightly increased today, HIDA on hold, trend LFTS -Repeat cultures negative -thank you
--- NOTE | 2017-03-10 10:32 | INFECT. DISEASE CONSULTATION ---
DATE OF CONSULTATION: 03/10/2017 REQUESTING PHYSICIAN: Dr. Donovan. HISTORY OF PRESENT ILLNESS: This is a 57-year-old gentleman who was admitted from [facility] with fever and headache, which stated 2 days prior to admission. He was persistently febrile throughout his hospital stay with a T-max of 39.3 on the . Blood cultures were obtained in the ER and are growing pansensitive E. coli. His repeat blood cultures on the are negative. His urinalysis had only 5-10 WBCs. Her flu swab, Giardia and an HIV tests were negative. He has had elevated LFTs intermittently and this morning, they are elevated as well. His sed rate and CRP were elevated at 76 and 29. He initially had a white blood cell count of 19, which is improved to 8.6. He did have a mild creatinine elevation at 1.8 on admission and this has improved to 0.9. He did have a CAT scan of abdomen and pelvis that showed gallbladder wall thickening, but there is no distention. There were no stones or biliary duct dilation. He also had some fluid at the level of the pancreas. He was to have a HIDA scan today, but he states this has been canceled. He is being followed by GI and is due to have an endoscopy and colonoscopy. Per nursing, he does have a history of colon polyps in the past. He has no plans for surgical removal of his gallbladder. He was initially on vancomycin and cefepime and received one time dose of Levaquin in the ER. He has subsequently been narrowed to Rocephin and is tolerating this well. He states he was eating, but has been changed to a clear liquid diet today in anticipation for colonoscopy and EGD in the morning. He states he is hungry. He denies any nausea, vomiting or diarrhea. He states his abdominal pain has greatly improved. He denies any shortness of breath, cough, wheezing or chest pain. He currently has no headache, visual changes or neck stiffness. He denies any joint pain or muscle pain. His remaining review of systems is reviewed and negative. PAST MEDICAL HISTORY: Significant for coronary artery disease with NM and coronary artery stent placement. He also has a history of COPD. FAMILY HISTORY: Noncontributory. SOCIAL HISTORY: Significant for daily tobacco use. He denies any alcohol or drug use. He currently is at [facility]. ALLERGIES: He has no known drug allergies. MEDICATIONS: Include Rocephin, Protonix, Combivent, Lipitor, trazodone, Ecotrin, Wellbutrin, Plavix, Depakote, gemfibrozil, subQ heparin, Tylenol and Zofran. PHYSICAL EXAMINATION: VITAL SIGNS: He currently has a temperature of 37.8, this is his T-max. Pulse 69, respiratory rate 16, blood pressure 135/60, and oxygen saturation is 92%-94% on room air. GENERAL: He is awake, alert and oriented x3. He is in no acute distress. HEENT: Mucous membranes are moist. Extraocular muscles are intact. HEART: Regular. LUNGS: Clear. ABDOMEN: Soft, nontender, and nondistended. There is no lower extremity edema. SKIN: Without rash. LABORATORY STUDIES: CBC reveals a white blood cell count of 8.6, hemoglobin 10.9, and platelets are 420. Chemistry panel reveals a sodium of 142, potassium 3.7, chloride 108, bicarbonate 24, BUN 15, creatinine 0.8, and glucose is 106. AST is 50 today, improved from 64. ALT is 93, up from 66. Alkaline phosphatase is 124 up from 77. Procalcitonin was 4. Urinalysis is negative. Flu swab was negative. Giardia was negative. HIV was negative. Blood cultures from the ER again are growing pansensitive E. coli. Urine culture was negative. Stool cultures were negative. C. diff was negative. Blood cultures on the 18 are no growth to date x2 sets. Chest x-ray in the Emergency Room was negative for any acute process. CT of the abdomen and pelvis is as above. CT of the chest was negative as well. ASSESSMENT AND PLAN: 1. Escherichia coli septicemia. 2. Leukocytosis, resolved. 3. Fever, improving at this time. He will be continued on Rocephin, especially since he will be made n.p.o. for procedure in the morning. His LFTs are increased today. He may ultimately require a HIDA scan as I suspect a GI source for his E. coli septicemia. His repeat blood cultures were negative. He will need a minimum of 2 weeks of antibiotics from his first negative cultures. He does not have any known drug allergies and I would recommend narrowing him to Augmentin 875 mg twice daily by mouth to complete his antibiotic course. For now, he will remain on IV antibiotics pending his procedures in the morning.
--- NOTE | 2017-03-10 11:05 | Progress Note ---
Progress Note Date of Service Mar 10, 2017. Progress Note Notes reviewed - ID suspects GI source. Will order HIDA to ensure there is no acute cholecystitis.
--- NOTE | 2017-03-10 13:08 | Progress Note ---
Subjective Date of Service: Mar 10, 2017. Subjective Pt evaluation today including: conversation w/ patient, physical exam, chart review, lab review, review of studies, conversation w/ internal audit consultant, review of inpatient medication list Feeling okay, no fever and chill, no abdominal pain however vital signs was having mild fever 37.8 Problem List Medical Problems: (1) Anemia Status: Acute Review of Systems Constitutional: + weakness, + fatigue, No fever, No chills, No sweats, No weight loss, No problem reported Eyes: No worsening of vision, No eye pain, No redness, No discharge, No diplopia ENT: No hearing loss, No unusual epistaxis, No nasal symptoms, No sore throat, No tinnitus, No dental problems, No trouble swallowing Respiratory: No cough, No sputum, No wheezing, No shortness of breath, No dyspnea on exertion, No dyspnea at rest, No hemoptysis Cardiac: No chest pain, No orthopnea, No PND, No edema, No claudication, No palpitations Abdomen: No pain, No nausea, No vomiting, No diarrhea, No constipation Musculoskeletal: No joint pain, No muscle pain, No swelling, No calf pain Male : No dysuria, No urinary frequency, No incontinence, No nocturia more than once/night, No slowing stream, No hematuria Neurologic: No memory loss, No paralysis, No weakness, No numbness/tingling, No vertigo, No balance problems Psychiatric: No depression symptoms, No anhedonism, No anxiety, No insomnia, No substance abuse Heme: No abnormal bleeding/bruising, No clotting problems, No swollen lymph nodes, No night sweats Endo: No fatigue, No excessive thirst, No excessive urination Skin: No rash, No itch, No new/changing skin lesions, No color change, No bleeding Objective Vital Signs Date Time Temp Pulse Resp B/P (MAP) Pulse Ox O2 Delivery O2 Flow Rate FiO2 03/10/17 12:38 36.6 82 16 122/65 (84) 94 Room Air 03/10/17 08:21 37.8 69 16 135/68 (90) 92 Room Air 03/10/17 08:00 92 Room Air 03/10/17 04:00 Room Air 03/10/17 03:35 37.6 62 20 141/73 (95) 93 Room Air 03/10/17 00:29 37.3 70 18 146/65 (92) 94 Room Air 03/09/17 23:59 Room Air 03/09/17 20:00 Room Air 03/09/17 19:31 37.4 65 20 145/78 (100) 94 Room Air 03/09/17 16:00 Room Air 03/09/17 15:30 36.8 66 20 144/82 (102) 96 Room Air Physical Exam General Appearance: WD/WN, no apparent distress Eyes: normal inspection, PERRL, EOMI, sclerae normal ENT: normal ENT inspection, hearing grossly normal, pharynx normal Neck: supple, no adenopathy, thyroid normal, no JVD, no carotid bruits, trachea midline Respiratory/Chest: chest non-tender, lungs clear, normal breath sounds, no respiratory distress, no accessory muscle use Cardiovascular: regular rate, rhythm, no edema, no gallop, no JVD, no murmur Abdomen: normal bowel sounds, non tender, soft, no organomegaly, no pulsatile mass Extremities: normal range of motion, non-tender, normal inspection, no pedal edema, no calf tenderness, normal capillary refill, pelvis stable Neurologic/Psychiatric: head charrer II-XII nml as tested, no motor/sensory deficits, alert, normal mood/affect, oriented x 3 Skin: normal color, warm/dry, no rash Lymphatic: no adenopathy Laboratory Results Last 24 Hours Test 03/10/17 06:04 White Blood Count 8.66 K/uL Red Blood Count 3.54 M/uL Hemoglobin 10.9 g/dL Hematocrit 33.0 % Mean Corpuscular Volume 93.2 fL Mean Corpuscular Hemoglobin 30.8 pg Mean Corpuscular Hemoglobin Concent 33.0 g/dl Platelet Count 420 K/uL Mean Platelet Volume 10.8 fL Neutrophils (%) (Auto) 62.0 % Lymphocytes (%) (Auto) 16.7 % Monocytes (%) (Auto) 16.7 % Eosinophils (%) (Auto) 1.0 % Basophils (%) (Auto) 0.6 % Neutrophils # (Auto) 5.36 K/uL Lymphocytes # (Auto) 1.45 K/uL Monocytes # (Auto) 1.45 K/uL Eosinophils # (Auto) 0.09 K/uL Basophils # (Auto) 0.05 K/uL RDW Standard Deviation 51.2 fL RDW Coefficient of Variation 14.9 % Immature Granulocyte % (Auto) 3.0 % Immature Granulocyte # (Auto) 0.26 K/uL Sodium Level 142 mmol/L Potassium Level 3.7 mmol/L Chloride Level 108 mmol/L Carbon Dioxide Level 24 mmol/L Anion Gap 10.0 mmol/L Blood Urea Nitrogen 15 mg/dl Creatinine 0.98 mg/dl Est Creatinine Clear Calc Drug Dose 82.2 ml/min Estimated GFR () 98.1 Estimated GFR (Non- 84.6 BUN/Creatinine Ratio 15.7 Random Glucose 106 mg/dl Calcium Level 8.3 mg/dl Total Bilirubin 0.2 mg/dl Aspartate Amino Transf (AST/SGOT) 50 U/L Alanine Aminotransferase (ALT/SGPT) 93 U/L Alkaline Phosphatase 124 U/L Total Protein 6.0 gm/dl Albumin 1.8 gm/dl Globulin 4.2 gm/dl Albumin/Globulin Ratio 0.4 Assessment and Plan 57 yo M hx of COPD, CAD p/w fever cough, encephalopathy leukocytosis admitted with gram negative bacteremia in the setting of suspected Acute cystitis Sepsis/E coli Bacteremia, associated with Leukocytosis and Fever, stable and improving , likely secondary to Cystitis , GI source has including Gallbladder, colon UA with +1 bacteria, Bladder thickening on U/S, no evidence of pyelonephritis, CT chest(03/05) : left kidney edema and stranding initially on Vancomycin, Cefepime; Vanc d/c'd with E coli on blood cx GI , General Surgery input appreciated. HIDA Scan ordered and reconsidered because of abnormal liver function test Infectious disease saw patient , will be continued on Rocephin, will need a minimum of 2 weeks of antibiotics from his first negative cultures, with possible Augmentin 875 mg twice daily by mouth to complete his antibiotic course after procedure BARRERA on CKD stage 3, resolved Hypotension sec to septic shock, resolved Fecal occult blood positive stool, stable, GI follow-up for EGD and colonoscopy , continue Protonix Coronary artery disease COPD Depression/Anxiety Above condition is stable DVT prophylaxis - heparin q8 Full code Continued [facility] stay due to: multiple IV medications needed Discharge planning: other ([facility])
[2017-03-10 13:14] LABS: LEGIONELLA ANTIGEN NOT DETECTED (NOT DETECTED)
--- NOTE | 2017-03-10 16:23 | PROGRESS NOTE ---
DATE: 03/10/2017 HISTORY OF PRESENT ILLNESS: The patient reports no abdominal pain or urinary difficulties. He has not had a bowel movement recorded today he presented with diarrhea, heme positive stool, anemia and was found to have E. coli bacteremia. A second set of blood cultures is still pending as well as a stool for Norovirus. Stool for C. diff and bacterial pathogens are negative. Urine culture is no growth. He does have on scans some stranding around his gallbladder and a biliary scan has been ordered for this afternoon. PHYSICAL EXAMINATION: VITAL SIGNS: Normal. He is afebrile. ABDOMEN: Soft. Bowel sounds are normal. No masses, tenderness. Keenan sign is negative. IMPRESSION AND PLAN: The patient has Escherichia coli bacteremia with the diarrhea with heme positive stool and anemia. The patient is scheduled for biliary scan this afternoon. I plan on prepping him for an EGD and colonoscopy tomorrow with Dr Julio.
--- NOTE | 2017-03-10 17:42 | DIAGNOSTIC IMAGING REPORT ---
HEPATOBILIARY HIDA IMAGING HISTORY: Abnormal liver function tests increased lft's, gram neg bacteremia COMPARISON: CT 03/07/2017 TECHNIQUE: Immediately following the intravenous administration of 5.5 mCi Tc-99m Choletec, dynamic anterior abdominal imaging was performed. FINDINGS: Uniform hepatic tracer accumulation is shown. Prompt intrahepatic biliary excretion is seen. The gallbladder, common bile duct, and small bowel are all visualized by 10 minutes. This appearance represents the normal sequence of biliary excretion. IMPRESSION: No evidence for cystic duct obstruction. Normal study The above report was generated using voice recognition software. It may contain grammatical, syntax or spelling errors. Electronically signed by: Gorge Salcido M.D. 03/10/2017 5:41 PM Dictated Date/Time: 03/10/2017 5:39 PM
[2017-03-10] MEDS: LAVAGE SOLUTION 4000ML PO SCH (19:41)
[2017-03-10] MEDS: TRAZODONE HCL 100 MG TAB PO SCH (19:48)
[2017-03-10] MEDS: ATORVASTATIN 20 MG TAB PO SCH (19:48)
[2017-03-10] MEDS: CEFTRIAXONE SOD INJ 1 GM in DEXTROSE 5% ADD-VANTAGE 50ML 50 ML IV SCH (19:48)
[2017-03-11] VITALS (9 sets, daily range): BP systolic 139–162; BP diastolic 73–87; PULSE 64–85; TEMP 36.5–37.3; O2SAT 91–97
[2017-03-11] MEDS: HEPARIN SOD 5000 UNIT/0.5 ML CARP SQ SCH ×3 (06:13→21:55)
[2017-03-11] MEDS: LAVAGE SOLUTION 4000ML PO SCH (06:14)
[2017-03-11] MEDS: PANTOprazole SOD 40 MG TAB PO SCH ×2 (07:52→20:54)
[2017-03-11] MEDS: GEMFIBROZIL 600 MG TAB PO SCH ×2 (07:52→20:54)
[2017-03-11] MEDS: IPRATROPIUM BROMIDE/ALBUTEROL respimat INH INH SCH ×4 (07:52→20:52)
[2017-03-11] MEDS: DIVALPROEX SODIUM 500 MG DELAY RELEASE TAB PO SCH ×2 (07:53→20:53)
[2017-03-11] MEDS: CLOPIDOGREL BISULFATE 75 MG TAB PO SCH (09:00)
[2017-03-11] MEDS: ASPIRIN 81 MG ECTAB PO SCH (09:00)
--- NOTE | 2017-03-11 10:24 | Progress Note ---
Subjective Date of Service: Mar 11, 2017. Subjective Pt evaluation today including: conversation w/ patient, physical exam, chart review, lab review, review of studies, conversation w/ training consultant, review of inpatient medication list Be okay, no abdominal pain, no blood in the stool, has been on bowel preparation for colonoscopy, Mild cough nonproductive, which is not new, Problem List Medical Problems: (1) Anemia Status: Acute Review of Systems Constitutional: + weakness, + fatigue, No fever, No chills, No sweats, No weight loss, No problem reported Eyes: No worsening of vision, No eye pain, No redness, No discharge, No diplopia ENT: No hearing loss, No unusual epistaxis, No nasal symptoms, No sore throat, No tinnitus, No dental problems, No trouble swallowing Respiratory: + cough, No sputum, No wheezing, No shortness of breath, No dyspnea on exertion, No dyspnea at rest, No hemoptysis Cardiac: No chest pain, No orthopnea, No PND, No edema, No claudication, No palpitations Abdomen: No pain, No nausea, No vomiting, No diarrhea, No constipation Musculoskeletal: No joint pain, No muscle pain, No swelling, No calf pain Male : No dysuria, No urinary frequency, No incontinence, No nocturia more than once/night, No slowing stream, No hematuria Neurologic: No memory loss, No paralysis, No weakness, No numbness/tingling, No vertigo, No balance problems Psychiatric: No depression symptoms, No anhedonism, No anxiety, No insomnia, No substance abuse Heme: No abnormal bleeding/bruising, No clotting problems, No swollen lymph nodes, No night sweats Endo: No fatigue, No excessive thirst, No excessive urination Skin: No rash, No itch, No new/changing skin lesions, No color change, No bleeding Objective Vital Signs Date Time Temp Pulse Resp B/P (MAP) Pulse Ox O2 Delivery O2 Flow Rate FiO2 03/11/17 08:00 Room Air 03/11/17 07:54 36.5 71 16 152/82 (105) 95 Room Air 03/11/17 05:39 37.3 85 17 141/75 91 Room Air 03/11/17 04:49 37.3 85 17 141/75 (97) 91 Room Air 03/11/17 04:00 Room Air 03/10/17 23:59 Room Air 03/10/17 23:45 36.7 80 20 142/80 (100) 93 Room Air 03/10/17 20:00 Room Air 03/10/17 19:43 36.6 83 18 142/76 (98) 95 Room Air 03/10/17 16:00 Room Air 03/10/17 12:38 36.6 82 16 122/65 (84) 94 Room Air 03/10/17 12:00 Room Air Physical Exam General Appearance: WD/WN, no apparent distress Eyes: normal inspection, PERRL, EOMI, sclerae normal ENT: normal ENT inspection, hearing grossly normal, pharynx normal Neck: supple, no adenopathy, thyroid normal, no JVD, no carotid bruits, trachea midline Respiratory/Chest: chest non-tender, normal breath sounds, no respiratory distress, no accessory muscle use, + decreased breath sounds Cardiovascular: regular rate, rhythm, no edema, no gallop, no JVD, no murmur Abdomen: normal bowel sounds, non tender, soft, no organomegaly, no pulsatile mass Extremities: normal range of motion, non-tender, normal inspection, no pedal edema, no calf tenderness, normal capillary refill, pelvis stable Neurologic/Psychiatric: change person II-XII nml as tested, no motor/sensory deficits, alert, normal mood/affect, oriented x 3 Skin: normal color, warm/dry, no rash Lymphatic: no adenopathy Assessment and Plan 57 yo M hx of COPD, CAD p/w fever cough, encephalopathy leukocytosis admitted with possible gram negative bacteremia in the setting of suspected Acute cystitis Sepsis/E coli Bacteremia, associated with Leukocytosis and Fever, stable and improving , likely secondary to Cystitis , GI source has including Gallbladder, colon UA with +1 bacteria, Bladder thickening on U/S, no evidence of pyelonephritis, CT chest(03/05) : left kidney edema and stranding HIDA Scan unremarkable initially on Vancomycin, Cefepime; Vanc d/c'd with E coli on blood cx GI , General Surgery input appreciated. Infectious disease saw patient , will be continued on Rocephin, will need a minimum of 2 weeks of antibiotics from his first negative cultures on 03/08/2017 with possible Augmentin 875 mg twice daily by mouth to complete BARRERA on CKD stage 3, resolved Hypotension sec to septic shock, resolved Fecal occult blood positive stool, stable, GI follow-up for EGD and colonoscopy today, continue Protonix Coronary artery disease COPD Depression/Anxiety Above condition is stable DVT prophylaxis - heparin q8 Full code Continued [facility] stay due to: multiple IV medications needed Discharge planning: other (Retirement)
--- NOTE | 2017-03-11 10:39 | Surgery Progress Note ---
Surgery Progress Note Date of Service Mar 11, 2017. Subjective Post OP Day: HD # 6 + feeling well, + bowel movement, + flatus, + diet (tolerated clear liquids yesterday without any post prandial pain), No complaints, No chest pain, No SOB , No nausea, No vomiting Objective Vital Signs: Date Time Temp Pulse Resp B/P (MAP) Pulse Ox O2 Delivery O2 Flow Rate FiO2 03/11/17 08:00 Room Air 03/11/17 07:54 36.5 71 16 152/82 (105) 95 Room Air 03/11/17 05:39 37.3 85 17 141/75 91 Room Air 03/11/17 04:49 37.3 85 17 141/75 (97) 91 Room Air 03/11/17 04:00 Room Air 03/10/17 23:59 Room Air 03/10/17 23:45 36.7 80 20 142/80 (100) 93 Room Air 03/10/17 20:00 Room Air 03/10/17 19:43 36.6 83 18 142/76 (98) 95 Room Air 03/10/17 16:00 Room Air 03/10/17 12:38 36.6 82 16 122/65 (84) 94 Room Air 03/10/17 12:00 Room Air General Appearance: WD/WN, no apparent distress Head: normocephalic, atraumatic Neck: trachea midline Respiratory/Chest: no respiratory distress, no accessory muscle use Abdomen: non tender, non distended, soft, no organomegaly, no pulsatile mass Laboratory Results: Results Past 24 Hours Test 03/11/17 10:18 Range/Units Assessment & Plan 57-year-old gentleman with gram-negative bacteremia. Possible sources included his urine or an abdominal source. His CT scan does show some mild gallbladder wall thickening and pericholecystic fluid. HIDA unremarkable. Repeat Blood cultures negative x 2 03/08/17. No symptoms to suggest gallbladder etiology. Tolerated diet without abdominal pain. Going for EGD/Colonoscopy today. Plan: No evidence of gallbladder obstruction or acute cholecystitis on HIDA scan. No surgical intervention required Continue medical management and IV antibiotics await EGD/Colonoscopy results our services signing off, thank you for consultation Discussed with Dr. Dorantes who is in agreement with above
[2017-03-11] MEDS ORDERED: MIDAZOLAM HCL 1 MG/ML 2ML VIAL ONE (14:37)
[2017-03-11] MEDS ORDERED: ONDANSETRON INJ 2 MG/ML 2 ML VIAL ONE (14:38)
[2017-03-11] MEDS ORDERED: PROPOFOL IV EMULSION 10 MG/ML 20 ML VIAL IV ONE ×2 (14:38→15:40)
[2017-03-11] MEDS ORDERED: LIDOCAINE HCL 2% 2 ML VIAL (20MG/ML) ONE (14:38)
--- NOTE | 2017-03-11 14:48 | History & Physical Bridge Note ---
H&P Re-Evaluation Bridge Note: I have examined the patient, reviewed the History & Physical and in the interval since the performance of the History & Physical I have noted the following changes of clinical significance: No changes noted For EGD and colon today for anemia damion
--- NOTE | 2017-03-11 14:50 | Progress Note ---
Subjective Date of Service: Mar 11, 2017. Subjective pt off of floor for colon/egd. afebrile overnight. remains on IV abx as he was npo for procedure. HIDA done yesterday, nml. no surgery planned. no overnight events. repeat blood cultures remain negative. Problem List Medical Problems: (1) Anemia Status: Acute Objective Vital Signs Date Time Temp Pulse Resp B/P (MAP) Pulse Ox O2 Delivery O2 Flow Rate FiO2 03/11/17 12:00 Room Air 03/11/17 11:40 36.7 74 18 162/87 (112) 94 Room Air 03/11/17 08:00 Room Air 03/11/17 07:54 36.5 71 16 152/82 (105) 95 Room Air 03/11/17 05:39 37.3 85 17 141/75 91 Room Air 03/11/17 04:49 37.3 85 17 141/75 (97) 91 Room Air 03/11/17 04:00 Room Air 03/10/17 23:59 Room Air 03/10/17 23:45 36.7 80 20 142/80 (100) 93 Room Air 03/10/17 20:00 Room Air 03/10/17 19:43 36.6 83 18 142/76 (98) 95 Room Air 03/10/17 16:00 Room Air Laboratory Results Item Value Date Time Blood Culture - Preliminary Resulted 03/08/17 1504 Blood NO GROWTH TO DATE. Blood Culture - Preliminary Resulted 03/08/17 1448 Blood NO GROWTH TO DATE. Blood Culture - Final Complete 03/05/17 2205 Blood Escherichia Coli Blood Culture - Final Complete 03/05/17 2150 Blood Escherichia Coli Last 24 Hours Test 03/11/17 11:02 Prealbumin 14.3 mg/dl Assessment and Plan (1) E. coli septicemia Assessment & Plan: When tolerating po can change to po augmentin 875mg po bid to complete 14 days from first negative culture (03/08). ok for d/c when otherwise stable. Continued [facility] stay due to: multiple IV medications needed Discharge planning: other (Intermediate)
--- NOTE | 2017-03-11 16:00 | Anesthesiology Progress Note ---
Anesthesia Post Op Note Date & Time Mar 11, 2017 at 16:00 Vital Signs Pain Intensity: 0 Vital Signs Past 12 Hours Date Time Temp Pulse Resp B/P (MAP) Pulse Ox O2 Delivery O2 Flow Rate FiO2 03/11/17 15:57 67 16 149/86 (107) 95 Room Air 03/11/17 15:42 69 16 163/89 (113) 96 Room Air 03/11/17 14:44 36.9 73 18 167/85 (112) 93 Room Air 03/11/17 12:00 Room Air 03/11/17 11:40 36.7 74 18 162/87 (112) 94 Room Air 03/11/17 08:00 Room Air 03/11/17 07:54 36.5 71 16 152/82 (105) 95 Room Air 03/11/17 05:39 37.3 85 17 141/75 91 Room Air 03/11/17 04:49 37.3 85 17 141/75 (97) 91 Room Air Notes Mental Status: alert / awake / arousable, participated in evaluation Pt Amnestic to Procedure: Yes Nausea / Vomiting: adequately controlled Pain: adequately controlled Airway Patency, RR, SpO2: stable & adequate BP & HR: stable & adequate Hydration State: stable & adequate Anesthetic Complications: no major complications apparent
--- NOTE | 2017-03-11 16:14 | GI REPORT ---
Procedure Date: 03/11/2017 3:02 PM Procedure: Colonoscopy Indications: Clinically significant diarrhea of unexplained origin, Iron deficiency anemia secondary to chronic blood loss, Personal history of colonic polyps Medicines: Propofol per Anesthesia Complications: No immediate complications. Estimated blood loss: Minimal. Estimated Blood Loss: Estimated blood loss was minimal. Estimated blood loss was minimal. Procedure: Pre-Anesthesia Assessment: - Prior to the procedure, a History and Physical was performed, and patient medications and allergies were reviewed. The patient's tolerance of previous anesthesia was also reviewed. The risks and benefits of the procedure and the sedation options and risks were discussed with the patient. All questions were answered, and informed consent was obtained. Prior Anticoagulants: The patient has taken no previous anticoagulant or antiplatelet agents. ASA Grade Assessment: III - A patient with severe systemic disease. After reviewing the risks and benefits, the patient was deemed in satisfactory condition to undergo the procedure. After I obtained informed consent, the scope was passed under direct vision. Throughout the procedure, the patient's blood pressure, pulse, and oxygen saturations were monitored continuously. The scope was introduced through the anus and advanced to the terminal ileum, with identification of the appendiceal orifice and IC valve. The colonoscopy was performed without difficulty. The patient tolerated the procedure well. The quality of the bowel preparation was fair and 10 percent obscured. Findings: The perianal and digital rectal examinations were normal. Pertinent negatives include normal sphincter tone, no palpable rectal lesions and no anal lesion or abnormality was detected. A moderate amount of semi-liquid stool was found in the entire colon, making visualization difficult. Lavage of the area was performed using a moderate amount of sterile water, resulting in clearance with fair visualization. The descending colon and ascending colon appeared normal. Biopsies for histology were taken with a cold forceps from the ascending colon and descending colon for evaluation of microscopic colitis. Estimated blood loss was minimal. Verification of patient identification for the specimen was done by the physician and vehicle modification technician using the patient's name and medical record number. The exam was otherwise without abnormality. The retroflexed view of the distal rectum and anal verge was normal and showed no anal or rectal abnormalities. Non-bleeding internal hemorrhoids were found during retroflexion. The hemorrhoids were mild. The terminal ileum appeared normal. Impression: - Stool in the entire examined colon. - The descending colon and ascending colon are normal. Biopsied. - The examination was otherwise normal. - The distal rectum and anal verge are normal on retroflexion view. - Non-bleeding internal hemorrhoids. - The examined portion of the ileum was normal. Recommendation: - Return patient to [facility] for ongoing care. - Advance diet as tolerated. - Continue present medications. - Await pathology results. - Repeat colonoscopy for surveillance based on pathology results. - Return to referring physician as previously scheduled. MD Anthony Solo MD 03/11/2017 4:14:14 PM This report has been signed electronically. Note Initiated On: 03/11/2017 3:02 PM I attest to the content of the Intraoperative Record and orders documented therein, exceptions below
--- NOTE | 2017-03-11 16:22 | GI REPORT ---
Procedure Date: 03/11/2017 3:00 PM Procedure: Upper GI endoscopy Indications: Iron deficiency anemia secondary to chronic blood loss, Melena, Diarrhea Medicines: Propofol per Anesthesia Complications: No immediate complications. Estimated blood loss: Minimal. Estimated Blood Loss: Estimated blood loss was minimal. Procedure: Pre-Anesthesia Assessment: - Prior to the procedure, a History and Physical was performed, and patient medications and allergies were reviewed. The patient's tolerance of previous anesthesia was also reviewed. The risks and benefits of the procedure and the sedation options and risks were discussed with the patient. All questions were answered, and informed consent was obtained. Prior Anticoagulants: The patient has taken no previous anticoagulant or antiplatelet agents. ASA Grade Assessment: III - A patient with severe systemic disease. After reviewing the risks and benefits, the patient was deemed in satisfactory condition to undergo the procedure. After obtaining informed consent, the endoscope was passed under direct vision. Throughout the procedure, the patient's blood pressure, pulse, and oxygen saturations were monitored continuously. The scope was introduced through the mouth, and advanced to the mid-jejunum. The upper GI endoscopy was accomplished without difficulty. The patient tolerated the procedure well. Findings: The examined esophagus was normal. The Z-line was regular and was found 38 cm from the incisors. Few non-bleeding superficial gastric ulcers with no stigmata of bleeding were found in the gastric body and in the gastric antrum. The largest lesion was 5 mm in largest dimension. Biopsies were taken with a cold forceps for histology. Estimated blood loss was minimal. Verification of patient identification for the specimen was done by the physician and technicians and trades workers using the patient's name and medical record number. The examined duodenum was normal. Biopsies for histology were taken with a cold forceps for evaluation of celiac disease. Estimated blood loss was minimal. Verification of patient identification for the specimen was done by the physician and technicians and trades workers using the patient's name and medical record number. The examined jejunum was normal. Retained gastric contents are not identified on this exam. The cardia and gastric fundus were normal on retroflexion. Impression: - Normal esophagus. - Z-line regular, 38 cm from the incisors. - Non-bleeding gastric ulcers with no stigmata of bleeding. Biopsied. - Normal examined duodenum. Biopsied. - Normal examined jejunum. Recommendation: - Return patient to [facility] for ongoing care. - Advance diet as tolerated. - Await pathology results. - Use a proton pump inhibitor PO BID for 4 months. MD Anthony Solo MD 03/11/2017 4:21:48 PM This report has been signed electronically. Note Initiated On: 03/11/2017 3:00 PM I attest to the content of the Intraoperative Record and orders documented therein, exceptions below
[2017-03-11] MEDS: CEFTRIAXONE SOD INJ 1 GM in DEXTROSE 5% ADD-VANTAGE 50ML 50 ML IV SCH (19:51)
[2017-03-11] MEDS: TRAZODONE HCL 100 MG TAB PO SCH (20:53)
[2017-03-11] MEDS: ATORVASTATIN 20 MG TAB PO SCH (20:54)
[2017-03-12 03:45] VITALS: BP 153/73; PULSE 85; TEMP 37.2; O2SAT 92
[2017-03-12] MEDS: HEPARIN SOD 5000 UNIT/0.5 ML CARP SQ SCH ×2 (05:57→13:34)
[2017-03-12 06:01] LABS: BASO % 0.3 %; BASO ABS # 0.03 K/uL (0-0.2); COMPLETE YES; EOS % 1.6 %; HEMATOCRIT 31.9 % (42-52); IG% 2.7 %; LYMPH % 25.3 %; LYMPH ABS # 2.61 K/uL (1.2-3.4); MEAN CELL VOLUME 94.9 fL (80-100); MEAN CORPUSCULAR HGB CONC 32.6 g/dl (32-36); MEAN PLATELET VOLUME 9.7 fL (7.4-10.4); MONO % 12.2 %; NEUT % 57.9 %; PLATELET COUNT 540 K/uL (130-400); RED BLOOD COUNT 3.36 M/uL (4.7-6.1); WHITE BLOOD COUNT 10.31 K/uL (4.8-10.8)
[2017-03-12 06:48] LABS: ALB/GLOB RATIO 0.5 (0.9-2); ALKALINE PHOSPHATASE 105 U/L (45-117); ALT/SGPT 70 U/L (12-78); AST/SGOT 32 U/L (15-37); BLOOD UREA NITROGEN 9 mg/dl (7-18); BUN/CREATININE RATIO 12.7 (10-20); CALCIUM 8.1 mg/dl (8.5-10.1); CARBON DIOXIDE 28 mmol/L (21-32); CHLORIDE 106 mmol/L (98-107); CREATININE 0.68 mg/dl (0.60-1.40); GLUCOSE 88 mg/dl (70-99); MAGNESIUM 1.8 mg/dl (1.8-2.4); POTASSIUM 3.2 mmol/L (3.5-5.1); SODIUM 142 mmol/L (136-145)
[2017-03-12 07:51] VITALS: BP 131/72; PULSE 80; TEMP 36.7; O2SAT 95
[2017-03-12] MEDS: IPRATROPIUM BROMIDE/ALBUTEROL respimat INH INH SCH ×2 (08:42→13:12)
[2017-03-12] MEDS ORDERED: NURSING VERBAL MED ORDER ONE (08:45)
[2017-03-12] MEDS: GEMFIBROZIL 600 MG TAB PO SCH (08:46)
[2017-03-12] MEDS: DIVALPROEX SODIUM 500 MG DELAY RELEASE TAB PO SCH (08:46)
[2017-03-12] MEDS: ASPIRIN 81 MG ECTAB PO SCH (08:46)
[2017-03-12] MEDS: CLOPIDOGREL BISULFATE 75 MG TAB PO SCH (08:47)
[2017-03-12] MEDS ORDERED: POTASSIUM CHLORIDE 20 MEQ TABCR PO ONE (09:00)
[2017-03-12] MEDS: PANTOprazole SOD 40 MG TAB PO SCH (09:19)
[2017-03-12] MEDS ORDERED: AMOX1TAB43 PO (10:26)
[2017-03-12] MEDS ORDERED: PRT40 PO (10:26)
--- NOTE | 2017-03-12 10:32 | Discharge Instructions ---
Discharge Instructions Date of Service Mar 12, 2017. Admission Reason for Admission: Pneumonia, Sepsis Discharge Discharge Diagnosis / Problem: Sepsis/E coli Bacteremia, Discharge Goals Goal(s): Decrease discomfort, Improve function, Increase independence, Improve disease control, Improve nutritional status, Learn about illness, Diagnostic testing, Therapeutic intervention, Prevent Disease Progression, Specific goals Activity Recommendations Activity Limitations: resume your previous activity . Instructions / Follow-Up Instructions / Follow-Up you have Sepsis/E coli Bacteremia, likely secondary to Cystitis , you need to continue antibiotics for totally 14 days from 03/08/2017 You have possible rectal bleeding, EGD and colonoscopy was done, need to follow- up with GI in 1 week EGD showed: Non-bleeding gastric ulcers with no bleeding, Use a proton pump inhibitor PO BID for 4 months there is Non-bleeding internal hemorrhoids in colonoscope Your potassium is low today, has been replaced, recommend potassium rich diet, check BMP and magnesium with PCP in 5-7 days - you need to follow up with your primary care physician in 1 week, - take medication as instructed, never overdose or any misuse, or take with alcohol, because misuse of medicine may cause organ damage or , call your primary care physician if have questions of medicaitons. - call your primary care physician OR go to local emergency room if has any fever/chill, chest pain, shortness of breathing, nausea/vomiting/abdominal pain , facial droop/slurry speech/local weakness, or if has any questions. - fall precaution - diet as instructed - you need to follow up with your subspecialist - you should understand that it is important to follow up the above instruction , and "not following the above instruction" may cause delayed or missed care of your medical conditions which may cause permanent organ damage and even . Current Hospital Diet Patient's current hospital diet: Regular Diet Discharge Diet Recommended Diet: Regular Diet Procedures Procedures Performed: COLONOSCOPY, BX EGD, BX Pending Studies Studies pending at discharge: no Medical Emergencies . Who to Call and When: Medical Emergencies: If at any time you feel your situation is an emergency, please call 911 immediately. . Non-Emergent Contact Non-Emergency issues call your: Primary Care Provider, Patient Account Liaison . . "Provider Documentation" section prepared by Reinier Macdonald. . VTE Core Measure Inpt VTE Proph given/why not?: Unfractionated heparin SQ, T.E.D. Stockings, SCD 's
[2017-03-12 10:43] VITALS: BP 131/72; PULSE 80; TEMP 36.7; O2SAT 95
[2017-03-12 11:44] VITALS: BP 147/77; PULSE 84; TEMP 37.6; O2SAT 90
--- NOTE | 2017-03-12 12:29 | Discharge Summary ---
Discharge Summary Date of Service Mar 12, 2017. Discharge Summary Admission Date: Mar 05, 2017 at 23:46 Discharge Date: Mar 12, 2017 Discharge Disposition: Home Principal Diagnosis: Sepsis/E coli Bacteremia, Problems/Secondary Diagnoses: Cystitis , rectal bleeding, Non-bleeding gastric ulcers Non-bleeding internal hemorrhoids in colonoscope Immunizations: Have You Had Influenza Vaccine: Unknown History of Tetanus Vaccine?: Unknown History of Pneumococcal: Unknown History of Hepatitis B Vaccine: Unknown Procedures: EGD and colonoscopy, HIDA scan Consultations: GI and surgeon Medication Reconciliation New Medications: Amoxicillin & Pot Clavulanate (Amoxicillin/Clavulanate P) 1 Tab Tab 875 MG PO BIDM for 10 Days, TAB Pantoprazole (Pantoprazole Sodium) 40 Mg Tab 40 MG PO BID for 120 Days, #240 TAB Continued Medications: Albuterol Hfa (Ventolin Hfa) 200 Puffs/28601 Mcg Aers 2 PUFFS INH Q6H PRN for SOB/Wheezing, #1 INHALER Aspirin (Aspirin Ec) 81 Mg Tab 81 MG PO DAILY Atorvastatin (Lipitor) 40 Mg Tab 40 MG PO HS, TAB Bupropion (Wellbutrin) 100 Mg Tab 100 MG PO BID, TAB Carvedilol (Coreg) 6.25 Mg Tab 6.25 MG PO BID, TAB Clopidogrel (Plavix) 75 Mg Tab 75 MG PO BID, TAB Divalproex Sodium (Depakote Delay Rel) 500 Mg Tab 500 MG PO BID, TAB Gemfibrozil (Lopid) 600 Mg Tab 600 MG PO BID, TAB Lisinopril (Zestril) 20 Mg Tab 20 MG PO DAILY, TAB Meloxicam (Mobic) 15 Mg Tab 15 MG PO DAILY, TAB Trazodone Hcl (Trazodone) 100 Mg Tab 100 MG PO HS, TAB Discharge Exam Doing okay, tolerate diet Review of Systems: Constitutional: No fever, No chills, No sweats, No weight loss, No weakness , No fatigue, No problem reported Eyes: No worsening of vision, No eye pain, No redness, No discharge, No diplopia, No problem reported ENT: No hearing loss, No unusual epistaxis, No nasal symptoms, No sore throat, No tinnitus, No dental problems, No trouble swallowing, No problem reported Respiratory: No cough, No sputum, No wheezing, No shortness of breath, No dyspnea on exertion, No dyspnea at rest, No hemoptysis, No problem reported Cardiovascular: No chest pain, No orthopnea, No PND, No edema, No claudication, No palpitations, No problem reported Abdomen: No pain, No nausea, No vomiting, No diarrhea, No constipation, No GI bleeding, No problem reported Musculoskeletal: No joint pain, No muscle pain, No swelling, No calf pain, No problem reported Genitourinary - Male: No hematuria, No dysuria, No urinary frequency, No urinary urgency, No urinary hesitancy, No urinary retention, No urinary incontinence, No penile discharge, No lesions, No impotence, No problem reported Neurologic: No memory loss, No paralysis, No weakness, No numbness/tingling , No vertigo, No balance problems, No problem reported Psychiatric: No depression symptoms, No anhedonism, No anxiety, No insomnia , No substance abuse, No problem reported Endocrine: No fatigue, No excessive thirst, No excessive urination, No problem reported Integumentary: No rash, No itch, No new/changing skin lesions, No color change, No bleeding, No problem reported Physical Exam: General Appearance: WD/WN, no apparent distress Eyes: normal inspection, PERRL ENT: normal ENT inspection, hearing grossly normal Neck: supple, no adenopathy Respiratory/Chest: chest non-tender, no respiratory distress, no accessory muscle use, + decreased breath sounds Cardiovascular: regular rate, rhythm, no edema, no gallop, no JVD, no murmur , normal peripheral pulses Abdomen / GI: normal bowel sounds, non tender, soft, no organomegaly, no pulsatile mass Extremities: normal inspection, no calf tenderness, normal capillary refill , no pedal edema, normal range of motion Neurologic/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: 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, no motor/sensory deficits , alert, normal mood/affect, normal reflexes, oriented x 3 Skin: normal color, warm/dry, no rash Hospital Course 57 yo M hx of COPD, CAD p/w fever cough, encephalopathy leukocytosis admitted with possible gram negative bacteremia in the setting of suspected Acute cystitis Sepsis/E coli Bacteremia, associated with Leukocytosis and Fever, stable and improving , likely secondary to Cystitis , GI source has including Gallbladder, colon UA with +1 bacteria, Bladder thickening on U/S, no evidence of pyelonephritis, CT chest(03/05) : left kidney edema and stranding HIDA Scan unremarkable, which rule out gallbladder infection initially on Vancomycin, Cefepime; Vanc d/c'd with E coli on blood cx GI , General Surgery input appreciated. Infectious disease saw patient , Kelly antibiotic to on Rocephin, will need a minimum of 2 weeks of antibiotics from his first negative cultures on 03/08/2017 with possible Augmentin 875 mg twice daily by mouth to complete, this has been ordered upon discharge BARRERA on CKD stage 3, resolved Hypotension sec to septic shock, resolved Fecal occult blood positive stool, maybe from nonbleeding gastric ulcerative disease and internal hemorrhoid, stable, GI follow-up for EGD and colonoscopy, Coronary artery disease COPD Depression/Anxiety Above condition is stable, patient is going to be discharged on stable condition with the instructions DVT prophylaxis - heparin q8 Full code Instructions / Follow-Up you have Sepsis/E coli Bacteremia, likely secondary to Cystitis , you need to continue antibiotics for totally 14 days from 03/08/2017 You have possible rectal bleeding, EGD and colonoscopy was done, need to follow- up with GI in 1 week EGD showed: Non-bleeding gastric ulcers with no bleeding, Use a proton pump inhibitor PO BID for 4 months there is Non-bleeding internal hemorrhoids in colonoscope Your potassium is low today, has been replaced, recommend potassium rich diet, check BMP and magnesium with PCP in 5-7 days - you need to follow up with your primary care physician in 1 week, - take medication as instructed, never overdose or any misuse, or take with alcohol, because misuse of medicine may cause organ damage or , call your primary care physician if have questions of medicaitons. - call your primary care physician OR go to local emergency room if has any fever/chill, chest pain, shortness of breathing, nausea/vomiting/abdominal pain , facial droop/slurry speech/local weakness, or if has any questions. - fall precaution - diet as instructed - you need to follow up with your subspecialist - you should understand that it is important to follow up the above instruction , and "not following the above instruction" may cause delayed or missed care of your medical conditions which may cause permanent organ damage and even . Total Time Spent: Greater than 30 minutes This includes examination of the patient, discharge planning, medication reconciliation, and communication with other providers. Discharge Instructions Please refer to the electronic Patient Visit Report (Discharge Instructions) for additional information. Additional Copies To [facility]
[2017-03-12] MEDS ORDERED: AMOXICILLIN/CLAVULANATE TAB 875 MG TAB PO SCH (16:45)
== END 2017-03-12 14:00 | disposition home or self-care (01) | DRG 871 ==
LOC: C.EDB 21:41 → C.2E 23:46 → ENRESERV 23:55
PROVIDERS: ADMIT Hospitalist; ATTEND Hospitalist
PROC: 0DBK8ZX Excision of Ascending Colon, Via Natural or Artificial Opening Endoscopic, Diagnostic (ICD-10-PCS; principal; 2017-03-11 14:40)
PROC: 0DB98ZX Excision of Duodenum, Via Natural or Artificial Opening Endoscopic, Diagnostic (ICD-10-PCS; principal; 2017-03-11 14:40)
PROC: 0DB68ZX Excision of Stomach, Via Natural or Artificial Opening Endoscopic, Diagnostic (ICD-10-PCS; principal; 2017-03-11 14:40)
PROC: 0DBM8ZX Excision of Descending Colon, Via Natural or Artificial Opening Endoscopic, Diagnostic (ICD-10-PCS; principal; 2017-03-11 14:40)
DX: A41.51 Sepsis due to Escherichia coli [E. coli] (principal); R65.21 Severe sepsis with septic shock; N17.9 Acute kidney failure, unspecified; N30.90 Cystitis, unspecified without hematuria; K25.9 Gastric ulcer, unspecified as acute or chronic, without hemorrhage or perforation; R32 Unspecified urinary incontinence; R19.7 Diarrhea, unspecified; R19.5 Other fecal abnormalities; K64.8 Other hemorrhoids; I95.9 Hypotension, unspecified; D64.9 Anemia, unspecified; I25.10 Atherosclerotic heart disease of native coronary artery without angina pectoris; I12.9 Hypertensive chronic kidney disease with stage 1 through stage 4 chronic kidney disease, or unspecified chronic kidney disease; N18.3 Chronic kidney disease, stage 3 (moderate); E78.5 Hyperlipidemia, unspecified; J44.9 Chronic obstructive pulmonary disease, unspecified; F32.9 Major depressive disorder, single episode, unspecified; F41.9 Anxiety disorder, unspecified; M19.90 Unspecified osteoarthritis, unspecified site; F17.200 Nicotine dependence, unspecified, uncomplicated; I25.2 Old myocardial infarction; Z95.5 Presence of coronary angioplasty implant and graft; Z87.19 Personal history of other diseases of the digestive system; Z79.02 Long term (current) use of antithrombotics/antiplatelets; Z79.1 Long term (current) use of non-steroidal anti-inflammatories (NSAID); Z79.82 Long term (current) use of aspirin; Z79.899 Other long term (current) drug therapy

== ENCOUNTER 2019-03-04 12:11 | Inpatient (IN) ==
[2019-03-04] MEDS ORDERED: LIDOCAINE HCL 4% w/ Afrin 4 ML VIAL STA (12:51)
[2019-03-04 13:27] LABS: Basophils # (auto) 0.08 K/uL (0-0.2); Basophils % (auto) 1.2 %; Eosinophils # (auto) 0.09 K/uL (0-0.5); Eosinophils % (auto) 1.4 %; Hematocrit (blood only) 38.7 % (42-52); Hemoglobin 13.3 g/dL (14.0-18.0); Immature Granulocytes # (auto) 0.01 K/uL (0.00-0.02); Immature Granulocytes % (auto) 0.2 %; Lymphocytes # (auto) 1.82 K/uL (1.2-3.4); Lymphocytes % (auto) 28.3 %; Mean Corpuscular Hemoglobin 32.2 pg (25-34); Mean Corpuscular Hgb Conc 34.4 g/dL (32-36); Mean Corpuscular Volume 93.7 fL (80-100); Mean Platelet Volume 10.8 fL (7.4-10.4); Monocytes # (auto) 1.12 K/uL (0.11-0.59); Monocytes % (auto) 17.4 %; Neutrophils # (auto) 3.31 K/uL (1.4-6.5); Neutrophils % (auto) 51.5 %; Platelet Count 232 K/uL (130-400); RDW Coefficient of Variation 13.3 % (11.5-14.5); RDW Standard Deviation 45.6 fL (36.4-46.3); Red Blood Count 4.13 M/uL (4.7-6.1); White Blood Count 6.43 K/uL (4.8-10.8)
[2019-03-04 13:44] LABS: Partial Thromboplastin Ratio 0.8; Partial Thromboplastin Time 20.8 Seconds (21.0-31.0); Prothrombin Time 10.2 Seconds (9.0-12.0)
[2019-03-04 13:46] LABS: Est GFR (African American) 103.1; Est GFR (Non-African American) 88.9
[2019-03-04 13:47] LABS: Albumin Level 3.7 gm/dl (3.4-5.0); BUN Creatinine Ratio 14.9 (10-20); Calcium 9.2 mg/dl (8.5-10.1); Creatinine Clr Calc Pharmacy 90.6 ml/min
[2019-03-04 13:49] LABS: Albumin Globulin Ratio 1.1 (0.9-2); Bilirubin,Total 0.3 mg/dl (0.2-1); Globulin 3.4 gm/dl (2.5-4.0); Total Protein 7.1 gm/dl (6.4-8.2)
[2019-03-04] MEDS ORDERED: TRANEXAMIC ACID ONE (14:08)
--- NOTE | 2019-03-04 15:03 | Emergency Department Note ---
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 The patient notes he takes Plavix and aspirin. This is secondary to 4 stents that he has in the heart. He states that he has been on Plavix since 2007. He has been dealing with nosebleeds intermittent since that time but notes over the past few days has had an increase. Yesterday he had a cauterization performed in the right nostril by Dr. Martinez. The bleeding began again and therefore prompting arrival here today. No trauma. He denies any known injury. No pain. Home Medications Home Medications Medication Instructions Recorded Confirmed Type amoxicillin-pot clavulanate 1 tab PO Q12H 7 Days #14 tab 03/04/19 Rx [Augmentin] aspirin [Aspir-Low] 81 mg PO DAILY 03/04/19 03/04/19 History atorvastatin 80 mg PO PM 03/04/19 03/04/19 History bacitracin zinc 1 applic INTRANASAL BID 03/04/19 03/04/19 History bupropion HCl 100 mg PO BID 03/04/19 03/04/19 History carvedilol 6.25 mg PO BID 03/04/19 03/04/19 History clopidogrel 75 mg PO BID 03/04/19 03/04/19 History divalproex [Depakote] 500 mg PO BID 03/04/19 03/04/19 History levalbuterol tartrate [Xopenex HFA] 2 inh INHALATION Q6H 03/04/19 03/04/19 History lisinopril 20 mg PO DAILY 03/04/19 03/04/19 History mirtazapine 15 mg PO DAILY 03/04/19 03/04/19 History nitroglycerin [Nitrostat] 0.4 mg SUBLINGUAL USEASDIRECTD PRN 03/04/19 03/04/19 History pantoprazole 40 mg PO BID 03/04/19 03/04/19 History Allergies Allergy/AdvReac Type Severity Reaction Status Date / Time No Known Allergies Allergy Unverified 03/04/19 12:37 Past Med/Surg History Medical History Asthma Coronary artery disease Dyslipidemia GERD (gastroesophageal reflux disease) Surgical History (Updated 03/04/19 @ 21:51 by Omer Alejo PA-C) History of nasal cauterization Social History Preferred Language: Vietnamese Communication Ability: Effective Car Bracer Required: No Beliefs That Will Affect Care: None Current Living Situation: Other Current Living Situation Comment: [facility] Other Information That Helps Us Care for You: No Smoking Status: Former smoker Hx Alcohol Use: No Hx Substance Use: No Review of Systems A total of 10 systems reviewed and were otherwise negative Physical Exam Vital Signs Vital Signs - 24 hr 03/04/19 12:12 03/04/19 14:44 03/04/19 16:50 Temperature 36.7 C Temperature Source Oral Pulse Rate 100 H Pulse Rate [Right Finger] 84 92 H Pulse Rhythm Regular Pulse Rhythm [Right Finger] Regular Pulse Strength Normal Pulse Strength [Right Finger] Normal Respiratory Rate 20 20 20 Respiratory Effort / Characteristics Non-Labored Spontaneous Non-Labored Spontaneous Respiratory Depth Normal Normal Respiratory Pattern Regular Regular Blood Pressure 157/91 H Blood Pressure [Right Arm] 159/94 H 151/91 H Blood Pressure Mean 113 Blood Pressure Mean [Right Arm] 115 111 Blood Pressure Position Sitting Blood Pressure Position [Right Arm] Sitting Pulse Oximetry 97 96 95 Oxygen Delivery Method Room Air Room Air Room Air Sepsis Recent Fever Within 48 Hours No Sepsis New/Unexplained Change in Mental Status No Sepsis Action Taken by Nursing No Action Required VITAL SIGNS - Vital signs and nursing notes were reviewed. Stable and afebrile. GENERAL -59-year-old male appearing his stated age who is in no acute distress. Communicates well with provider and answers questions appropriately. SKIN - Without rashes. No meningeal or petechial rash. HEAD - NC/AT. EYES - PERRL with EOMI bilaterally. Sclera anicteric. Palpebral conjunctiva pink and moist with no injection noted. EARS - No deformities of external structures noted on gross examination bilaterally. No pain elicited with palpation of the tragus bilaterally. External auditory canals without discharge or otorrhea. Tympanic membranes pearly salcido without retraction or bulging. No fluid or purulent material visualized behind the TM. Handle of malleus, umbo, cone of light, pars tensa/flaccid all easily visualized. NOSE - Midline and without cyanosis. There is right-sided epistaxis noted. MOUTH/OROPHARYNX - Without perioral cyanosis. Minimal blood in the posterior pharynx. NECK - Neck with FROM. Supple to palpation. CARDIAC - RRR with S1/S2. No murmur, rubs, or gallops appreciated. EXTREMITIES - No clubbing or peripheral cyanosis. NEUROLOGIC - Cranial nerves II through XII grossly intact. PSYCH - A&O, and cooperates fully with examiner. Pt is very pleasant and interacts well with examiner. Course Administered Medications Atorvastatin Calcium (Lipitor) 80 mg PO PM ADEOLA Stop: 04/03/19 20:59 Last Admin: 03/04/19 20:28 Dose: 80 mg Documented by: [id number] Bupropion HCl (Wellbutrin) 100 mg PO BID ADEOLA Stop: 04/03/19 20:59 Last Admin: 03/04/19 20:27 Dose: 100 mg Documented by: [id number] Divalproex Sodium (Depakote Delay Release) 500 mg PO BID ADEOLA Stop: 04/03/19 20:59 Last Admin: 03/04/19 20:28 Dose: 500 mg Documented by: [id number] Sodium Chloride (Nss 1000ml) 1,000 mls @ 50 mls/hr IV .Q20H ADEOLA Stop: 04/03/19 18:29 Last Admin: 03/04/19 19:54 Dose: 50 mls/hr Documented by: [id number] Levalbuterol HCl (Xopenex Hfa) 2 puffs INH Q6 ADEOLA Stop: 04/03/19 18:14 Last Admin: 03/04/19 20:30 Dose: Not Given Documented by: [id number] Pantoprazole Sodium (Protonix) 40 mg PO BID ADEOLA Stop: 04/03/19 20:59 Last Admin: 03/04/19 20:27 Dose: 40 mg Documented by: [id number] Zolpidem Tartrate (Ambien) 5 mg PO HS PRN PRN Reason: Sleep Stop: 04/03/19 20:40 Last Admin: 03/04/19 21:38 Dose: 5 mg Documented by: [id number] Discontinued Medications Amoxicillin/Clavulanate Potassium (Augmentin 875mg) 1 tab PO NOW ONE Stop: 03/04/19 15:49 Last Admin: 03/04/19 15:59 Dose: 1 tab Documented by: [id number] Carvedilol (Coreg) 6.25 mg PO BID ADEOLA Stop: 04/03/19 20:59 Last Admin: 03/04/19 20:28 Dose: 6.25 mg Documented by: [id number] Lidocaine HCl (Afrin W/Lidocaine 4%) 4 ml NA NOW STA Stop: 03/04/19 12:52 Last Admin: 03/04/19 13:22 Dose: 4 ml Documented by: [id number] Tranexamic Acid (Tranexamic Acid 10% Topical Or Nasal) 500 mg NA ONE ONE Stop: 03/04/19 14:09 Last Admin: 03/04/19 14:45 Dose: 500 mg Documented by: [id number] Medical Decision Making Laboratory Data Result diagrams: 03/04/19 13:20 03/04/19 13:20 Lab Results 03/04/19 03/04/19 03/04/19 Range/Units 13:20 13:20 13:20 WBC 6.43 (4.8-10.8) K/uL RBC 4.13 L (4.7-6.1) M/uL Hgb 13.3 L (14.0-18.0) g/dL Hct 38.7 L (42-52) % MCV 93.7 (80-100) fL MCH 32.2 (25-34) pg MCHC 34.4 (32-36) g/dL RDW Std Deviation 45.6 (36.4-46.3) fL RDW Coeff of Yonas 13.3 (11.5-14.5) % Plt Count 232 (130-400) K/uL MPV 10.8 H (7.4-10.4) fL Immature Gran % (Auto) 0.2 % Neut % (Auto) 51.5 % Lymph % (Auto) 28.3 % [place] % (Auto) 17.4 % Eos % (Auto) 1.4 % Baso % (Auto) 1.2 % Immature Gran # (Auto) 0.01 (0.00-0.02) K/uL Neut # (Auto) 3.31 (1.4-6.5) K/uL Lymph # (Auto) 1.82 (1.2-3.4) K/uL [place] # (Auto) 1.12 H (0.11-0.59) K/uL Eos # (Auto) 0.09 (0-0.5) K/uL Baso # (Auto) 0.08 (0-0.2) K/uL PT 10.2 (9.0-12.0) Seconds INR 1.0 (0.9-1.1) APTT 20.8 L (21.0-31.0) Seconds PTT Ratio 0.8 Sodium 138 (136-145) mmol/L Potassium 4.0 (3.5-5.1) mmol/L Chloride 107 (98-107) mmol/L Carbon Dioxide 24 (21-32) mmol/L Anion Gap 7.0 (3-11) BUN 14 (7-18) mg/dl Creatinine 0.93 (0.6-1.4) mg/dl Est Cr Clr Drug Dosing 90.6 ml/min Est GFR ( Amer) 103.1 Est GFR (Non-Af Amer) 88.9 BUN/Creatinine Ratio 14.9 (10-20) Glucose 100 H (70-99) mg/dl Calcium 9.2 (8.5-10.1) mg/dl Total Bilirubin 0.3 (0.2-1) mg/dl AST 9 L (15-37) U/L ALT 21 (12-78) U/L Alkaline Phosphatase 59 (45-117) U/L Total Protein 7.1 (6.4-8.2) gm/dl Albumin 3.7 (3.4-5.0) gm/dl Globulin 3.4 (2.5-4.0) gm/dl Albumin/Globulin Ratio 1.1 (0.9-2) MDM Narrative Patient was seen and evaluated as above in room D4. Review was performed of nursing notes and vital signs. After obtaining a thorough history and physical examination the above work up was performed. He presents to us today with right-sided epistaxis. Nasal cautery was performed yesterday. Patient does have persistence of bleeding on my exam here today. Afrin trial was unsuccessful. I discussed this with Dr. Martinez. We discussed the option of packing the nose. Consent was obtained, and a 5.5 cm rapid Rhino was placed. Unfortunate was persistent bleeding. I then packed the right nostril with TXA soaked gauze. There is persistence of bleeding. A 7.5 was attempted but unfortunately patient did not tolerate well and this was not further attempted. A 5.5 similar rapid Rhino was then replaced with some good hemostasis. There was only a very small amount of blood protruding. I discussed this with Dr. Martinez again. Patient will be admitted by the medicine team and added to the surgical schedule for tomorrow with planned surgery by Dr. Martinez. He was given p.o. Augmentin here as it was felt that at one point he can be discharged but with persistence of bleeding he will be admitted. Please disregard the discharge instructions from the emergency department, as these were generated at a time when the patient had temporary hemostasis. There was a and augment prescription also generated which at this time may be changed pending clinical course. Case was discussed with the attending physician. In the evaluation and treatment of this patient the following differential diagnoses were entertained: Anterior epistaxis, posterior epistaxis, among others. Impression & Plan Acute anterior epistaxis Discharge Plan Visit Data *Final* Discharge Date/Time: 03/04/19 18:51 Chief Complaint: Nose Bleed (Minor) Stated Complaint: bloody nose ED Provider: Chloe Alcaraz ED Midlevel Provider: Omer Alejo Discharge Problem: Acute anterior epistaxis Patient Disposition: Admitted As Inpatient Condition: Good Discharge Instructions Interventions: ED Discharge Assessment Last Done: 03/04/19 18:51
[2019-03-04] MEDS ORDERED: AMOXICILLIN/CLAVULANATE 875 MG TAB PO ONE (15:48)
[2019-03-04] MEDS ORDERED: NITROGLYCERIN SL 0.4 MG/TAB TAB SL PRN ×2 (18:15→18:18)
[2019-03-04] MEDS ORDERED: MAGNESIUM HYDROXIDE SUSP 30 ML UDC PO PRN (18:18)
[2019-03-04] MEDS ORDERED: POLYETHYLENE (MIRALAX) 17 GM PACK PO PRN (18:18)
[2019-03-04] MEDS ORDERED: ONDANSETRON INJ 2 MG/ML 2 ML VIAL IV PRN (18:18)
[2019-03-04] MEDS ORDERED: ACETAMINOPHEN 325 MG TAB PO PRN (18:18)
[2019-03-04] MEDS ORDERED: ALUMINUM/MAGNESIUM SUSP 30 ML UDC PO PRN (18:18)
[2019-03-04] MEDS ORDERED: SODIUM CHLORIDE 0.9% 1000ML 1,000 ML IV SCH (18:30)
[2019-03-04] MEDS: buPROPion HCl 100 MG TABLET PO SCH (20:27)
[2019-03-04] MEDS: PANTOprazole 40 MG TAB PO SCH (20:27)
[2019-03-04] MEDS: DIVALPROEX DELAY RELEASE 500 MG TAB PO SCH (20:28)
[2019-03-04] MEDS: LEVALBUTEROL TARTRATE 15 GM HFA.AER.AD INH SCH ×2 (20:30→23:53)
[2019-03-04] MEDS ORDERED: ZOLPIDEM TARTRATE 5 MG TAB PO PRN (20:41)
[2019-03-04] MEDS ORDERED: carvediloL 6.25 MG TAB PO SCH (21:00)
[2019-03-04] MEDS ORDERED: ATORVASTATIN 40 MG TAB PO SCH (21:00)
--- NOTE | 2019-03-04 21:47 | History & Physical Report ---
Date of Service March 04, 2019 Assessment & Plan (1) Acute anterior epistaxis: Currently bleeding has stopped, and nose is packed Appears to be hemodynamically stable ENT physician Dr. Martinez is consulted from ED, recommended n.p.o. from midnight and possible surgical intervention Continue holding aspirin and Plavix INR is within normal limits, platelet count is within normal limits If he rebleeds again we will consider platelet transfusion Hemoglobin has been stable, will follow up hemoglobin in a.m. Gentle IV fluid hydration Prophylactic cefazolin IV SCD boots for DVT prophylaxis (2) Essential hypertension: Blood pressure appears to be elevated and as well as heart rate Will increase carvedilol dose from 6.5 mg twice daily to 12.5 mg twice daily Continue continue lisinopril (3) Dyslipidemia: Continue atorvastatin 80 mg p.o. daily (4) Coronary artery disease: Since last stent was 4 years ago Currently hold aspirin and Plavix If cleared by ENT can be restarted only on Plavix versus only on aspirin, my sense is to start with Plavix and if no more nasal bleed then that would be fine but if he develop any nasal bleed then downgrade to aspirin, especially when not sure what type of stents he has (5) GERD (gastroesophageal reflux disease): Continue Protonix (6) Asthma: Mild intermittent, currently not in exacerbation Continue home inhalers History of Present Illness 59-year-old man with past medical history of CAD status post 4 stents, as per patient 3 on the right side and one on the left last stent was in 2007, also has past medical history of hypertension, dyslipidemia, degenerative joint disease and asthma. Patient said that since 2007 when he had his last stent he was placed on Plavix and aspirin, since then he has been having intermittent mild nasal bleed, [facility] suddenly noticed severe blood coming out of his nose he went to the ENT office and possibly a cauterization-but patient is poor historian, is not sure what did he have done, in any event he presented to the ED with profuse nasal recurrent bleeding that was not controlled by packing. Finally the bleed slightly improved but the packing is soaked with blood, Dr. Martinez was consulted from the ED and recommended the patient to be n.p.o. from midnight. Patient other than the nasal bleed has no new complaint Chief Complaint: Nasal bleed Primary Care Provider: [facility] Allergies Allergy/AdvReac Type Severity Reaction Status Date / Time No Known Allergies Allergy Unverified 03/04/19 12:37 Home Medications Home Medications Medication Instructions Recorded Confirmed Type amoxicillin-pot clavulanate 1 tab PO Q12H 7 Days #14 tab 03/04/19 Rx [Augmentin] aspirin [Aspir-Low] 81 mg PO DAILY 03/04/19 03/04/19 History atorvastatin 80 mg PO PM 03/04/19 03/04/19 History bacitracin zinc 1 applic INTRANASAL BID 03/04/19 03/04/19 History bupropion HCl 100 mg PO BID 03/04/19 03/04/19 History carvedilol 6.25 mg PO BID 03/04/19 03/04/19 History clopidogrel 75 mg PO BID 03/04/19 03/04/19 History divalproex [Depakote] 500 mg PO BID 03/04/19 03/04/19 History levalbuterol tartrate [Xopenex HFA] 2 inh INHALATION Q6H 03/04/19 03/04/19 History lisinopril 20 mg PO DAILY 03/04/19 03/04/19 History mirtazapine 15 mg PO DAILY 03/04/19 03/04/19 History nitroglycerin [Nitrostat] 0.4 mg SUBLINGUAL USEASDIRECTD PRN 03/04/19 03/04/19 History pantoprazole 40 mg PO BID 03/04/19 03/04/19 History Past Med/Surg History Social History Preferred Language: Cambodian Communication Ability: Effective 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 Beliefs That Will Affect Care: None Current Living Situation: Other Current Living Situation Comment: [facility] Other Information That Helps Us Care for You: No Smoking Status: Former smoker Hx Alcohol Use: No Hx Substance Use: No Review of Systems Review of Systems: Review of system Constitutional: No fever / no chills / no sweats / no weakness / no fatigue Eyes: no blurring of vision / no eye pain / no discharge / no redness ENT: Aside from profuse nasal bleeding, no new complaint Respiratory: no cough / no wheezing / no SOB / no hemoptysis Cardiovascular: no Chest pain / no lower extremity edema / no palpitation Abdomen: no pain / no nausea / no vomiting / no constipation Musculoskeletal: no joint pain / no muscle pain / no joint swelling Genitourinary: no dysuria / no incontinence / no urinary retention Neurologic: no focal weakness / no numbness/tingling / no ataxia Psychiatric: no depression symptoms / no anxiety / no insomnia Endocrine: no excessive thirst / no excessive urination Hematologic: no abnormal bleeding / no bruising / no LN swelling Skin: No rash / no pallor Physical Exam Physical Exam: Physical examination General patient appears to be comfortable, not in acute distress HEENT: Atraumatic , normocephalic /no jaundice /no pallor /anicteric /no dry mucous membrane /normal external ear inspection, nose is packed, small amount of blood clots around the nasal orifice, no blood seen in the back of his throat Neck: Supple /no swelling /central trach Heart: S1/S2 normal/regular rate and rhythm/no gallop /no rub /no murmur Lungs: Clear to auscultation bilaterally/normal chest with expansion/no rhonchi/no rales/no wheezing/no use of accessory muscles of respiration Abdomen: Soft/nontender/no guarding/no rebound/no organomegaly/no pulsatile mass Musculoskeletal: No swelling/no edema/no tenderness/normal range of motion Neuro exam: Awake alert oriented 3/cranial nerves II through XII appear to be intact/sensation intact/moves all extremities/no abnormal movements Psychiatric evaluation: No depressed mood/normal affect Skin: No rash on exposed skin area/no erythema Extremity: Normal pulse/no pitting edema/no clubbing or cyanosis Endocrine/lymphatic: No obvious lymphadenopathy /no lymphedema Results & Data Vital Signs (Past 12 Hours) Vital Signs Temp Pulse Pulse Resp BP BP BP 03/04/19 19:41 98 H 03/04/19 19:22 36.3 C L 112 H 19 171/96 H 03/04/19 18:31 98 H 20 146/88 H 03/04/19 16:50 92 H 20 151/91 H 03/04/19 14:44 84 20 159/94 H 03/04/19 12:12 36.7 C 100 H 20 157/91 H Pulse Ox 03/04/19 19:41 03/04/19 19:22 97 03/04/19 18:31 96 03/04/19 16:50 95 03/04/19 14:44 96 03/04/19 12:12 97 Code Status & VTE Plan VTE Prophylaxis Plan VTE Prophylaxis will be ordered: Yes PG Care Time/CCT Total # of Minutes Spent Total Time Spent with Patient: Total time spent is greater than 50% in coordination of care (as documented) at patient's floor/unit and/or counseling patient:
[2019-03-04] MEDS ORDERED: carvediloL 6.25 MG TAB PO ONE (22:00)
[2019-03-04] MEDS: CEFAZOLIN 1,000 MG in SYRINGE 0 ML IV SCH (23:52)
[2019-03-05] MEDS: LEVALBUTEROL TARTRATE 15 GM HFA.AER.AD INH SCH ×2 (05:38→12:03)
[2019-03-05] MEDS: CEFAZOLIN 1,000 MG in SYRINGE 0 ML IV SCH ×2 (06:11→16:08)
[2019-03-05] MEDS: LACTOBACILLUS ACIDOPHILUS 1 GM PACK PO SCH ×2 (08:07→12:03)
[2019-03-05] MEDS: DIVALPROEX DELAY RELEASE 500 MG TAB PO SCH (08:12)
[2019-03-05] MEDS: MIRTAZAPINE TAB 15 MG TAB PO SCH ×2 (08:12→08:18)
[2019-03-05] MEDS: PANTOprazole 40 MG TAB PO SCH (08:12)
[2019-03-05] MEDS: buPROPion HCl 100 MG TABLET PO SCH (08:13)
[2019-03-05 08:45] LABS: Hematocrit (blood only) 37.2 % (42-52); Hemoglobin 12.7 g/dL (14.0-18.0)
[2019-03-05] MEDS ORDERED: carvediloL 12.5 MG TAB PO SCH (09:00)
[2019-03-05] MEDS ORDERED: LISINOPRIL 20 MG TAB PO SCH (09:00)
[2019-03-05] MEDS ORDERED: fentaNYL citrate 100 MCG/2 ML VIAL ONE ×2 (11:29→11:30)
[2019-03-05] MEDS ORDERED: MIDAZOLAM HCL 1 MG/ML 2ML VIAL ONE (11:29)
[2019-03-05] MEDS ORDERED: TRIAMCINOLONE ACET 40 MG/ML VIAL ONE (12:45)
[2019-03-05] MEDS ORDERED: EPINEPHrine INJ 1 MG/ML AMP ONE (12:45)
[2019-03-05] MEDS ORDERED: LIDOCAINE/EPINE 2% 1:100,000 20ML ONE (12:45)
[2019-03-05] MEDS ORDERED: LIDOCAINE 4% INH SOLN 4 ML BTL ONE (12:45)
[2019-03-05] MEDS ORDERED: BACITRACIN OINT 15 GM TUBE ONE (12:45)
[2019-03-05] MEDS ORDERED: OXYMETAZOLINE 0.05% 30 ML BTL ONE (12:46)
--- NOTE | 2019-03-05 12:48 | History & Physical Bridge Note ---
Date of Service March 05, 2019 History & Physical Bridge Note I have examined the patient, reviewed the History & Physical and in the interval since the performance of the History & Physical I have noted the following changes of clinical significance: for endoscopic cautery and packing, no changes noted
--- NOTE | 2019-03-05 12:51 | ENT Consultation ---
Date of Consultation March 05, 2019 Assessment & Plan (1) Epistaxis: endoscopic cautery and packing History of Present Illness Reason for Consultation: nose bleed Attending Physician: Rakan Maravilla MD History of Present Illness 59 yo on plavix and ASA with epistaxis Allergies Allergy/AdvReac Type Severity Reaction Status Date / Time No Known Allergies Allergy Unverified 03/04/19 12:37 Home Medications Home Medications Medication Instructions Recorded Confirmed Type amoxicillin-pot clavulanate 1 tab PO Q12H 7 Days #14 tab 03/04/19 Rx [Augmentin] aspirin [Aspir-Low] 81 mg PO DAILY 03/04/19 03/04/19 History atorvastatin 80 mg PO PM 03/04/19 03/04/19 History bacitracin zinc 1 applic INTRANASAL BID 03/04/19 03/04/19 History bupropion HCl 100 mg PO BID 03/04/19 03/04/19 History carvedilol 6.25 mg PO BID 03/04/19 03/04/19 History clopidogrel 75 mg PO BID 03/04/19 03/04/19 History divalproex [Depakote] 500 mg PO BID 03/04/19 03/04/19 History levalbuterol tartrate [Xopenex HFA] 2 inh INHALATION Q6H 03/04/19 03/04/19 History lisinopril 20 mg PO DAILY 03/04/19 03/04/19 History mirtazapine 15 mg PO DAILY 03/04/19 03/04/19 History nitroglycerin [Nitrostat] 0.4 mg SUBLINGUAL USEASDIRECTD PRN 03/04/19 03/04/19 History pantoprazole 40 mg PO BID 03/04/19 03/04/19 History Patient History Medical History Asthma Coronary artery disease Dyslipidemia GERD (gastroesophageal reflux disease) Surgical History History of nasal cauterization Social History Preferred Language: Amharic Communication Ability: Effective Forensic Chemist Required: No Beliefs That Will Affect Care: None Current Living Situation: Other Current Living Situation Comment: [facility] Other Information That Helps Us Care for You: No Smoking Status: Former smoker Hx Alcohol Use: No Hx Substance Use: No Physical Exam ENMT: Nose: + septum abnormality (deviated, pack in right nostril) Results & Data Vital Signs (Past 12 Hours) Vital Signs Temp Pulse Pulse Resp BP BP Pulse Ox 03/05/19 12:03 37 C 37 L 18 126/80 94 03/05/19 11:00 36.8 C 72 18 137/73 96 03/05/19 08:00 81 03/05/19 07:00 36.8 C 80 16 113/69 94 03/05/19 03:40 37.2 C 84 18 126/73 95
--- NOTE | 2019-03-05 13:00 | Anesthesiology Consultation ---
Date of Service March 05, 2019 Assessment & Plan Chart Review Chart Review: Acceptable Risk for Surgery Consults Requested none ASA ASA4 Proposed Anesthesia Anesthesia Type: General Risk / Benefits Reviewed With: PT / POA / Parent / Guardian, Accepts Plan and Informed Consent Obtained History Surgery Operation Date: 03/05/19 07:50 Proposed Procedures p Endoscopic Sinus Cautery - Fabby Martinez MD Height/Weight Height: 5 ft 7 in Weight: 85.8 kg Allergies Allergy/AdvReac Type Severity Reaction Status Date / Time No Known Allergies Allergy Unverified 03/04/19 12:37 Medications Home Medications Medication Instructions Recorded Confirmed Last Taken amoxicillin-pot clavulanate 1 tab PO Q12H 7 Days #14 tab 03/04/19 Unknown [Augmentin] aspirin [Aspir-Low] 81 mg PO DAILY 03/04/19 03/04/19 03/04/19 07:30 atorvastatin 80 mg PO PM 03/04/19 03/04/19 03/03/19 20:30 bacitracin zinc 1 applic INTRANASAL BID 03/04/19 03/04/19 03/04/19 07:30 bupropion HCl 100 mg PO BID 03/04/19 03/04/19 03/04/19 07:30 carvedilol 6.25 mg PO BID 03/04/19 03/04/19 03/04/19 07:30 clopidogrel 75 mg PO BID 03/04/19 03/04/19 03/04/19 07:30 divalproex [Depakote] 500 mg PO BID 03/04/19 03/04/19 03/04/19 07:30 levalbuterol tartrate [Xopenex HFA] 2 inh INHALATION Q6H 03/04/19 03/04/19 03/04/19 07:30 lisinopril 20 mg PO DAILY 03/04/19 03/04/19 03/04/19 07:30 mirtazapine 15 mg PO DAILY 03/04/19 03/04/19 03/03/19 20:30 nitroglycerin [Nitrostat] 0.4 mg SUBLINGUAL USEASDIRECTD PRN 03/04/19 03/04/19 Unknown pantoprazole 40 mg PO BID 03/04/19 03/04/19 03/04/19 07:30 Active Medications Generic Name Dose Route Start Last Admin Trade Name Freq PRN Reason Stop Dose Admin Acetaminophen 650 mg 03/04/19 18:18 03/05/19 03:15 Tylenol PO 04/03/19 18:17 650 mg Q4H PRN Administration Pain or Fever Atorvastatin Calcium 80 mg 03/04/19 21:00 03/04/19 20:28 Lipitor PO 04/03/19 20:59 80 mg PM ADEOLA Administration Bupropion HCl 100 mg 03/04/19 21:00 03/05/19 08:13 Wellbutrin PO 04/03/19 20:59 100 mg BID ADEOLA Administration Carvedilol 12.5 mg 03/05/19 09:00 03/05/19 08:12 Coreg PO 04/04/19 08:59 12.5 mg BID ADEOLA Administration Divalproex Sodium 500 mg 03/04/19 21:00 03/05/19 08:12 Depakote Delay Release PO 04/03/19 20:59 500 mg BID ADEOLA Administration Sodium Chloride 1,000 mls @ 50 mls/hr 03/04/19 18:30 03/04/19 19:54 Nss 1000ml IV 04/03/19 18:29 50 mls/hr .Q20H ADEOLA Administration Cefazolin Sodium 1,000 mg/ 7.5 mls @ 2.5 mls/min 03/04/19 23:00 03/05/19 06:11 Syringe IV 03/14/19 22:59 2.5 mls/min Q8H ADEOLA Administration Lactobacillus Acidophilus 1 gm 03/05/19 08:00 03/05/19 12:03 Floranex Granules/Powder Packet PO 04/04/19 07:59 Not Given TIDM ADEOLA Levalbuterol HCl 2 puffs 03/04/19 18:15 03/05/19 12:03 Xopenex Hfa INH 04/03/19 18:14 Not Given Q6 ADEOLA Lisinopril 20 mg 03/05/19 09:00 03/05/19 08:13 Zestril PO 04/04/19 08:59 20 mg DAILY ADEOLA Administration Mirtazapine 15 mg 03/05/19 09:00 03/05/19 08:18 Remeron PO 04/04/19 08:59 Not Given DAILY ADEOLA Pantoprazole Sodium 40 mg 03/04/19 21:00 03/05/19 08:12 Protonix PO 04/03/19 20:59 40 mg BID ADEOLA Administration Zolpidem Tartrate 5 mg 03/04/19 20:41 03/04/19 21:38 Ambien PO 04/03/19 20:40 5 mg HS PRN Administration Sleep NPO Date Last Intake of Fluids: 03/04/19 Time Last Intake of Fluids: 21:30 Date Last Intake of Solids: 03/04/19 Time Last Intake of Solids: 21:30 Past Medical History Medical History Asthma Coronary artery disease Dyslipidemia GERD (gastroesophageal reflux disease) Exercise / Class Metabolic Activity III < 4 Walking/Shop/Light housework Past Surgical History Surgical History (Updated 03/05/19 @ 12:58 by Santosh Hallman DO) History of nasal cauterization Past Anesthesia History No Hx of Anesthesia Complications and No Family Hx of Anesthesia Complications History of PONV No Hx of PONV and No Hx of Motion Sickness Social History Smoking Status: Former smoker Hx Alcohol Use: No Hx Substance Use: No Physical Exam Vital Signs Last Vital Signs Temp 98.6 F 03/05/19 12:03 Pulse 37 L 03/05/19 12:03 Resp 18 03/05/19 12:03 BP 126/80 03/05/19 12:03 Pulse Ox 94 03/05/19 12:03 ENMT Mouth: + edentulous Thyromental Distance: > or= 3.5 Finger Breadths Mallampati Class: II Neck normal visual inspection Respiratory normal respiratory effort Auscultation: lungs clear to auscultation bilaterally Cardiovascular Rate/Rhythm: regular rate and regular rhythm Testing Laboratory Results 03/05/19 08:37 03/04/19 13:20 PT 10.2 Seconds (9.0-12.0) 03/04/19 13:20 INR 1.0 (0.9-1.1) 03/04/19 13:20 APTT 20.8 Seconds (21.0-31.0) L 03/04/19 13:20
[2019-03-05] MEDS ORDERED: ATROPINE SULFATE 0.1 MG/ML 10ML SYR IV PRN (13:04)
[2019-03-05] MEDS ORDERED: ePHEDrine sulfate 50 MG/ML AMP IV PRN (13:04)
[2019-03-05] MEDS ORDERED: ONDANSETRON INJ 2 MG/ML 2 ML VIAL IV PRN (13:04)
[2019-03-05] MEDS ORDERED: fentaNYL citrate 100 MCG/2 ML VIAL IV PRN (13:04)
[2019-03-05] MEDS ORDERED: GELATIN SPONGE SZ 100 ONE (13:12)
[2019-03-05] MEDS ORDERED: ePHEDrine sulfate 50 MG/ML SYR ONE (13:34)
[2019-03-05] MEDS ORDERED: PROPOFOL IV EMULSION 10 MG/ML 20 ML VIAL IV ONE (13:34)
[2019-03-05] MEDS ORDERED: PHENYLEPHRINE 100MCG/ML 5ML SYR ONE (13:34)
[2019-03-05] MEDS ORDERED: LIDOCAINE HCL 2% 2 ML VIAL/AMP(20MG/ML) INFIL ONE (13:34)
[2019-03-05] MEDS ORDERED: DEXAMETHASONE SOD INJ 4 MG/ML VIAL ONE (13:34)
[2019-03-05] MEDS ORDERED: ONDANSETRON INJ 2 MG/ML 2 ML VIAL ONE (13:34)
[2019-03-05] MEDS ORDERED: FLOSEAL HEMOSTATIC MATRIX 10ML TOP ONE (13:39)
--- NOTE | 2019-03-05 13:53 | Operative Report ---
Post Operative Report Pre & Post Diagnosis Operation Date: 03/05/19 07:50 Pre-Op Diagnosis: NASAL BLEED Post-Op Diagnosis: NASAL BLEED I identified the patient and participated in the time-out.: Yes Procedure Operation Date: 03/05/19 07:50 Actual Procedures p Endoscopic Sinus Cautery(Right) - Fabby Martinez MD Surgeon Fabby Martinez MD Sampler Radioactive Waste None Estimated Blood Loss 1 Findings Consistent with Post-Op Diagnosis Specimens None Anesthesia Type General Complications none Disposition Accompanied Patient To Recovery: Yes Disposition: Recovery Room Indications 59-year-old on Plavix and aspirin with right-sided epistaxis poorly controlled with packing in the emergency room Description of Procedure He was brought to the operating room, properly identified, placed in the supine position and properly draped after general anesthesia with LMA. The 0 degree endoscope was used in the right side of the nostril was decongested using topical cottonoids with a solution of 4 cc of 4% Xylocaine with 1 cc of epinephrine the bleeding site was at the right mid septum and was cauterized using the suction cautery. Packing was started posteriorly with pieces of Ge lfoam in the nasopharynx packing the right posterior choanae and then filling the nasal cavity with 10 cc of FloSeal. Anterior nasal packing of Gelfoam was also placed to hold the FloSeal in place. He tolerated procedure well and was taken to recovery area in satisfactory condition. I attest to the content of the Intraoperative Record and any orders documented therein. Any exceptions are noted below.
--- NOTE | 2019-03-05 13:55 | Surgery Progress Note ---
Date of Service March 05, 2019 Assessment & Plan (1) Epistaxis: Endoscopic cautery and posterior packing was performed in the OR with good control of the bleeding identifying the site in the mid septum. The packing is all dissolvable and the patient should be able to return to the [facility] for further care. He does not need to return for my office and that the packing is all dissolvable. Coverage with p.o. antibiotics would be advisable while the packing is in place. 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 Subjective No further bleeding Results & Data Vital Signs (Past 12 Hours) Vital Signs Temp Pulse Pulse Resp BP BP Pulse Ox 03/05/19 12:03 37 C 89 18 126/80 94 03/05/19 11:00 36.8 C 72 18 137/73 96 03/05/19 08:00 81 03/05/19 07:00 36.8 C 80 16 113/69 94 03/05/19 03:40 37.2 C 84 18 126/73 95
[2019-03-05] MEDS: GELATIN SPONGE 12-7MM ONE ×2 (13:57→14:03)
--- NOTE | 2019-03-05 14:26 | Anesthesiology Progress Note ---
Date of Service March 05, 2019 Anesthesia Post Procedure Vital Signs Vital Signs: Temp Pulse Pulse Pulse Resp BP BP 03/05/19 14:20 93 H 21 126/88 03/05/19 14:10 87 10 L 146/76 H 03/05/19 14:00 90 14 153/76 H 03/05/19 13:53 98.2 F 87 22 118/75 03/05/19 12:03 98.6 F 89 18 126/80 03/05/19 11:00 98.2 F 72 18 137/73 03/05/19 08:00 81 03/05/19 07:00 98.2 F 80 16 113/69 03/05/19 03:40 99.0 F 84 18 126/73 03/05/19 00:36 98.8 F 03/05/19 00:10 103 H 03/04/19 23:20 100.9 F H 03/04/19 22:25 98.2 F 85 18 03/04/19 22:17 94 H 133/75 03/04/19 19:41 98 H 03/04/19 19:22 97.3 F L 112 H 19 171/96 H 03/04/19 18:31 98 H 20 146/88 H 03/04/19 16:50 92 H 20 151/91 H 03/04/19 14:44 84 20 159/94 H Pulse Ox 03/05/19 14:20 98 03/05/19 14:10 100 03/05/19 14:00 100 03/05/19 13:53 100 03/05/19 12:03 94 03/05/19 11:00 96 03/05/19 08:00 03/05/19 07:00 94 03/05/19 03:40 95 03/05/19 00:36 03/05/19 00:10 03/04/19 23:20 03/04/19 22:25 97 03/04/19 22:17 03/04/19 19:41 03/04/19 19:22 97 03/04/19 18:31 96 03/04/19 16:50 95 03/04/19 14:44 96 Transfer of Care Handoff Completed per policy Notes Mental Status: alert / awake / arousable and participated in evaluation Patient Amnestic to Procedure: Yes Nausea / Vomiting: adequately controlled Pain: adequately controlled Airway Patency, RR, SpO2: stable & adequate BP & HR: stable & adequate Hydration State: stable & adequate Anesthetic Complications: no major complications apparent and Pt Satisfied with anesthetic care
--- NOTE | 2019-03-05 15:46 | Discharge Summary ---
Date of Service March 05, 2019 Admission HPI Per Admitting Provider 59-year-old man with past medical history of CAD status post 4 stents, as per patient 3 on the right side and one on the left last stent was in 2007, also has past medical history of hypertension, dyslipidemia, degenerative joint disease and asthma. Patient said that since 2007 when he had his last stent he was placed on Plavix and aspirin, since then he has been having intermittent mild nasal bleed, [facility] suddenly noticed severe blood coming out of his nose he went to the ENT office and possibly a cauterization-but patient is poor historian, is not sure what did he have done, in any event he presented to the ED with profuse nasal recurrent bleeding that was not controlled by packing. Finally the bleed slightly improved but the packing is soaked with blood, Dr. Martinez was consulted from the ED and recommended the patient to be n.p.o. from midnight. Patient other than the nasal bleed has no new complaint Chief Complaint: Nasal bleed Primary Care Provider: DAVON Mendez Principal Diagnosis Epistaxis Discharge Exam Constitutional WD/WN, vitals as above Respiratory normal respiratory effort, lungs clear to auscultation Cardiovascular RRR, no murmur, no edema Gastrointestinal (Abdomen) normal bowel sounds, soft, nontender, no hepatosplenomegaly Musculoskeletal no cyanosis or clubbing, extremities motor strength 5/5 Skin no rashes, warm and dry Neurologic moves all extremities and awake Psychiatric A+Ox3, euthymic affect Discharge Data Allergies Allergy/AdvReac Type Severity Reaction Status Date / Time No Known Allergies Allergy Unverified 03/04/19 12:37 Consultations 03/04/19 16:56 ED Decision to Admit Stat 03/04/19 18:18 Consult Physician Stat Procedures Performed Operation Date: 03/05/19 07:50 Actual Procedures p Endoscopic Sinus Cautery(Right) - Fabby Martinez MD Hospital Course (1) Acute anterior epistaxis: S/p Endoscopic Sinus Cautery(Right) with Dr. Martinez Appears to be hemodynamically stable Continue holding aspirin and Plavix Hemoglobin has been stable Prophylactic cefazolin IV - will give Augmentin at discharge while patient has packing in per surgeon recommendation (2) Essential hypertension: Blood pressure was elevated on admission and as well as heart rate Increased carvedilol dose from 6.5 mg twice daily to 12.5 mg twice daily Continue continue lisinopril Follow up with pcp for further titration (3) Dyslipidemia: Continue atorvastatin 80 mg p.o. daily (4) Coronary artery disease: Since last stent was 4 years ago Currently hold aspirin and Plavix Restart only on Plavix - may want to discuss risk factors with cardiology to decide on anti platelet therapy going forward (5) GERD (gastroesophageal reflux disease): Continue Protonix (6) Asthma: Mild intermittent, currently not in exacerbation Continue home inhalers Dispo: surgery recommending patient discharged to monitoring in the [facility]. Discussed patient's discharge with Andrae Mendez. Total Time Total Time Spent Total Time Spent (In Minutes): greater than 30 minutes Discharge Plan Discharge Items [facility] Disposition[facility] Reason For Visit: NASAL BLEED Discharge Diagnosis: Epistaxis (nose bleed) Condition on Discharge: Good Activity: Resume your previous activity Activity Comment: gradually as tolerated Non-emergency contact: Primary Care Provider Call non-emergency contact if: you have any medication questions, your symptoms worsen and you have a fever Follow-up/Referrals: Andrea MAYS [Primary Care Provider] - Diet: Regular Addtl Attending Provider Instructions: Epistaxis Endoscopic cautery and posterior packing was performed in the OR. The packing is all dissolvable. - Mr. Call should return to the [facility] for further care. He does not need to follow with Dr. Martinez in the office as the packing will dissolve on its own. - continue Augmentin 875 mg po bid while packing is in place - Resume Plavix only. Would discontinue dual antiplatelet therapy and give Plavix only. HTN Elevated blood pressure and heart rate on admission - Carvedilol increased - follow up with cardiology concerning platelet therapy and blood pressure management Pending Studies at Discharge: No Stand-Alone Forms: My [facility] Skilled Items Patient informed of condition?: Yes Discharge Level of Care: Other Communicable Disease: No Discharge Prognosis: Stable Lines: None Urinary Catheter: No Medications and DC Order Prescriptions: New amoxicillin-pot clavulanate [Augmentin] 875-125 mg tablet 1 tab PO Q12H 7 Days Qty: 14 RF: 0 carvedilol 12.5 mg Tablet 12.5 mg PO BID Qty: 30 RF: 0 Continued bacitracin zinc 1 applic intranasal BID RF: 0 mirtazapine 15 mg Tablet 15 mg PO DAILY RF: 0 divalproex [Depakote] 500 mg Tablet,Delayed Release (Dr/Ec) 500 mg PO BID RF: 0 atorvastatin 80 mg Tablet 80 mg PO PM RF: 0 clopidogrel 75 mg Tablet 75 mg PO BID RF: 0 lisinopril 20 mg Tablet 20 mg PO DAILY RF: 0 nitroglycerin [Nitrostat] 0.4 mg Tablet, Sublingual 0.4 mg sublingual USEASDIRECTD PRN (Reason: Chest Pain) RF: 0 pantoprazole 40 mg Tablet,Delayed Release (Dr/Ec) 40 mg PO BID RF: 0 levalbuterol tartrate [Xopenex HFA] 45 mcg/actuation Hfa Aerosol Inhaler 2 inh INHALATION Q6H RF: 0 bupropion HCl 100 mg Tablet 100 mg PO BID RF: 0 Discontinued aspirin [Aspir-Low] 81 mg Tablet,Delayed Release (Dr/Ec) 81 mg PO DAILY RF: 0 carvedilol 6.25 mg Tablet 6.25 mg PO BID RF: 0 Discharge Orders: Discharge Order (Routine); Ordered 03/05/19 Ordered By: Ann Fletcher Admission Data Admit Date/Time: 03/05/19 09:12 Attending Provider: Rakan Maravilla Admit Provider: Kathia Welsh Primary Care Provider: Andrea MAYS Other Providers: Rakan Maravilla ; Kathia Welsh ; Fabby Martinez How Other Interventions: Discharge Summary Assessment (RN) Last Done: 03/05/19 16:19 Supervising Physician Co-Signing Physician Notes I supervised Ann Fletcher NP on this patient's care. I examined the patient today independently of her. I discussed the plan of care with her with the plan being as written in her note except for any following changes/exceptions: None. Patient in no distress after surgery. Packing in right nares without any bleeding. Discharge and follow up with Dr. Martinez as outpatient.
== END 2019-03-05 17:48 | DRG 151 ==
LOC: 2W 12:11 → ED 12:11 → SUATTDRO 18:19 → 2W 18:51